=== PATIENT | male | born 1960 | race Caucasian/White ===

== ENCOUNTER → 2017-07-19 08:45 | Outpatient (CLI) | payer OTHER, SELFPAY ==
--- NOTE | 2017-07-19 | CI_ITS ---
Cerebrovascular Exam Indications: 780.4 Dizziness and giddiness. IMPRESSIONS 1. The bilateral vertebral arteries are patent with normal antegrade flow. 2. Study suggests less than 20% stenosis involving the right internal carotid artery and the left internal carotid artery. No change from the study of 26-Aug-2014. History: Syncope. Risk factors: Hyperlipidemia. Carotid duplex study. Complete study and Doppler flow study including spectral analysis, color and whittaker scale imaging. Height: Height: 177.8cm. Height: 70in. Weight: Weight: 104.3kg. Weight: 229.5lb. Body mass index: BMI: 33kg/m^2. Body surface area: BSA: 2.3m^2. Location: Vascular laboratory. Patient status: Outpatient. Tables: Arterial flow: + +--------+--------+ Location V sys V ed + +--------+--------+ Right CCA - proximal 127cm/s 28.3cm/s + +--------+--------+ Right CCA - distal 101cm/s 33cm/s + +--------+--------+ Right ECA 128cm/s -------- + +--------+--------+ Right ICA - proximal 95.1cm/s 33.8cm/s + +--------+--------+ Right ICA - mid 80.1cm/s 31.4cm/s + +--------+--------+ Right ICA - distal 99cm/s 40.1cm/s + +--------+--------+ Right vertebral 53.4cm/s -------- + +--------+--------+ Left CCA - proximal 105cm/s 29.1cm/s + +--------+--------+ Left CCA - distal 105cm/s 31.4cm/s + +--------+--------+ Left ECA 115cm/s -------- + +--------+--------+ Left ICA - proximal 84.9cm/s 35.4cm/s + +--------+--------+ Left ICA - mid 87.2cm/s 40.9cm/s + +--------+--------+ Left ICA - distal 106cm/s 47.9cm/s + +--------+--------+ Left vertebral 43.2cm/s -------- + +--------+--------+ Velocity ratios: + + + + + + Right, V sys Right, V ed Left, V sys Left, V ed + + + + + + Max ICA/dist CCA 0.98 1.22 1.01 1.53 + + + + + + (Report amended ) Electronically signed by: Robbin Martin [id number]
== END ==
PROVIDERS: Family Provider Family Medicine; PCP Nurse Practitioner; Visit Provider Family Medicine
DX: R55 Syncope and collapse (principal)
CPT/HCPCS: 93880

== ENCOUNTER 2017-08-20 23:12 | Observation (INO) ==
[2017-08-20 23:48] LABS: Basophils # 0.1 K/mm3 (0-0.2); Basophils % 0.9 % (0.1-2.0); Eosinophils # 0.2 K/mm3 (0.0-0.4); Eosinophils % 2.9 % (0.1-12.0); Lymphocytes # 2.2 K/mm3 (0.7-4.5); Lymphocytes % 37.7 K/mm3 (10-50); Mean Corpuscular HGB Conc 29.7 g/dL (31.8-35.4); Mean Corpuscular Hemoglobin 27.4 pg (27.0-31.2); Mean Corpuscular Volume 92.3 fl (80-94); Mean Platelet Volume 8.3 fl (7.4-10.4); Monocytes # 0.4 K/mm3 (0.1-1.0); Monocytes % 6.3 % (1.7-9.3); Neutrophils % 52.2 % (37.0-80.0); Platelet Count 319 K/mm3 (142-424); Red Blood Count 4.01 M/mm3 (4.60-6.20); Red Cell Distribution Width 12.7 % (11.5-17.5); White Blood Count 5.8 K/mm3 (4.8-10.8)
[2017-08-20 23:53] LABS: Acetone, Serum (Rapid) None Detected (None Detect)
[2017-08-21 00:03] LABS: Alanine Aminotransferase 18 U/L (12-78); Albumin Level 3.2 gm/dL (3.4-5.0); Alkaline Phosphatase 141 U/L (46-116); Anion Gap 9.3 mEq/L (5-15); Aspartate Amino Transferase 13 U/L (15-37); Bilirubin,Direct 0.1 mg/dL (0.0-0.2); Bilirubin,Indirect 0.2 mg/dL (0.0-0.9); Bilirubin,Total 0.3 mg/dL (0.2-1.0); Blood Urea Nitrogen 20 mg/dL (7-18); Calcium 8.5 mg/dL (8.5-10.1); Carbon Dioxide 28 mmol/L (21.0-32.0); Chloride 105 mmol/L (98-107); Glucose 325 mg/dL (74-106); Potassium 4.3 mmoL/L (3.5-5.1); Sodium 138 mmol/L (136-145); Total Protein,Serum 6.6 gm/dL (6.4-8.2)
[2017-08-21 00:05] LABS: Amylase 40 U/L (25-125); Lipase 52 u/L (73-393)
[2017-08-21 00:06] LABS: Ethyl Alcohol 0 mg/dL (0-99)
[2017-08-21 00:16] LABS: Microscopic, Urine URINE MICROSCOPIC (MICROSCOPIC)
[2017-08-21 00:24] LABS: Amphetamine/Metha Screen,Urine Positive ng/mL (<1000); Barbiturates Screen,Urine Negative ng/mL (<200); Benzodiazepines Screen,Urine Negative ng/mL (<200); Cannabinoid Screen,Urine Negative ng/mL (<50); Cocaine Screen,Urine Negative ng/mL (<300); Methadone Screen,Urine Negative ng/mL (<300); Opiate Screen,Urine Positive ng/mL (<300); Phencyclidine Screen,Urine Negative ng/mL (<25)
[2017-08-21 00:55] LABS: Appearance,Urine CLEAR (Clear); Bilirubin,Urine Negative (Negative); Blood, Urine TRACE-I (Negative); Color,Urine YELLOW (Yellow); Glucose,Urine (UA) 3+ (Negative); Ketones,Urine Negative (Negative); Leukocyte Esterase,Urine Negative (Negative); PH,Urine 5.5 (5.0-8.5); Protein,Urine Negative (Negative); Urobilinogen,Urine 0.2 EU/dl (0.2)
[2017-08-21 00:59] LABS: WBC,Urine Occasional #/hpf (0-3)
--- NOTE | 2017-08-21 02:32 | Emergency Department Note ---
ED Disposition Clinical Impression: Hyperglycemia Overdose opiate Qualifiers: Encounter type: initial encounter Injury intent: accidental or unintentional Qualified Code(s): T40.601A - Poisoning by unspecified narcotics, accidental ( unintentional), initial encounter Disposition: Admitted As Inpatient Condition on Discharge: Fair Time of Disposition: 01:15 - Critical Care Critical Care Time: Yes Attestation: On 08/20/17, the high probability of a clinically significant, sudden or life threatening deterioration of the following system(s) required my full and direct attention, intervention and personal management. The time I documented below is in addition to time spent performing reported procedures but includes the following listed in this critical care notation. Total Critical Care Time: 90 Vital system(s) involved:: Central Nervous System My critical care processes included: Assessment & monitoring of V/S, Initial and Re-exams, Data Review/Interpretation, Coordinating Care, Medication Orders and management, Documentation Medical Decision Making - Medical Records Medical records reviewed: Yes: I reviewed the patient's medical records. - Juan Inquiry Pt receiving controlled substance: No Vital Signs: 08/20/17 23:13 08/21/17 00:33 08/21/17 00:44 Temperature 97.7 F Temperature Source Oral Pulse Rate Pulse Rate [Right Brachial] Pulse Rate [Right Radial] 90 822 H 81 Respiratory Rate 14 16 16 Blood Pressure Blood Pressure [Right Arm] 176/98 128/75 128/75 Blood Pressure Mean [Right Arm] 124 92 92 Blood Pressure Source Blood Pressure Source [Right Arm] Automatic Cuff Automatic Cuff Blood Pressure Position Blood Pressure Position [Right Arm] Sitting Supine 02 Sat by Pulse Oximetry 92 L 95 97 Oxygen Delivery Method Room Air Room Air 08/21/17 01:30 08/21/17 02:26 Temperature 98.8 F Temperature Source Oral Pulse Rate 75 Pulse Rate [Right Brachial] 107 H Pulse Rate [Right Radial] Respiratory Rate 18 16 Blood Pressure 121/73 Blood Pressure [Right Arm] 159/89 Blood Pressure Mean [Right Arm] 112 Blood Pressure Source Automatic Cuff Blood Pressure Source [Right Arm] Automatic Cuff Blood Pressure Position Sitting Blood Pressure Position [Right Arm] Supine 02 Sat by Pulse Oximetry 98 Oxygen Delivery Method Room Air Room Air - Lab Data Lab results reviewed: Yes: I reviewed the patient's lab results. Lab Results 08/20/17 23:11: POC Glucose 380 H* 08/20/17 23:30: WBC 5.8, RBC 4.01 L, Hgb 11.0 L, Hct 37.0 L, MCV 92.3, MCH 27.4 , MCHC 29.7 L, RDW 12.7, Plt Count 319, MPV 8.3, Neut % (Auto) 52.2, Lymph % ( Auto) 37.7, [place] % (Auto) 6.3, Eos % (Auto) 2.9, Baso % (Auto) 0.9, Neut # (Auto ) 3.0, Lymph # (Auto) 2.2, [place] # (Auto) 0.4, Eos # (Auto) 0.2, Baso # (Auto) 0.1 08/20/17 23:30: Troponin I < 0.02, Amylase 40, Lipase 52 L, Salicylates 2.0 L, Plasma/Serum Alcohol 0 08/20/17 23:30: Sodium 138, Potassium 4.3, Chloride 105, Carbon Dioxide 28, Anion Gap 9.3, BUN 20 H, Creatinine 1.56 H, Estimated Creat Clear 79, Estimated GFR 46 L, Est GFR ( Amer) 56 L, Glucose 325 H, Calcium 8.5, Total Bilirubin 0.3, Direct Bilirubin 0.1, Indirect Bilirubin 0.2, AST 13 L, ALT 18, Alkaline Phosphatase 141 H, Total Protein 6.6, Albumin 3.2 L, Acetone Level None detected 08/21/17 00:10: Urine Color Yellow, Urine Appearance Clear, Urine pH 5.5, Ur Specific [place] 1.020, Urine Protein Negative, Urine Glucose (UA) 3+, Urine Ketones Negative, Urine Blood Trace-i, Urine Nitrate Negative, Urine Bilirubin Negative, Urine Urobilinogen 0.2, Ur Leukocyte Esterase Negative, Urine RBC 3-5 , Urine WBC Occasional 08/21/17 00:10: Urine Opiates Screen Positive H, Urine Methadone Screen Negative , Ur Barbituates Screen Negative, Ur Phencyclidine Scrn Negative, Ur Amphetamines Screen Positive H, U Benzodiazepines Scrn Negative, Urine Cocaine Screen Negative, U Marijuana (THC) Screen Negative 08/21/17 00:44: POC Glucose 186 H Result diagrams: 08/20/17 23:30 08/20/17 23:30 Orders (Tests/Meds): ED MEDICATIONS Discontinued Medications Generic Name Dose Route Start Last Admin Trade Name Freq PRN Reason Stop Dose Admin Atorvastatin Calcium 10 mg 08/21/17 21:00 Lipitor 10mg Tablet PO 09/20/17 20:59 HS LORAINE Sodium Chloride 1,000 mls @ 999 mls/hr 08/20/17 23:30 08/21/17 00:00 Sod Chlor 0.9% 1000ml Bag IV 08/21/17 00:30 999 mls/hr .Q1H1M LORAINE Administration Sodium Chloride 1,000 mls @ 999 mls/hr 08/21/17 00:15 08/20/17 23:15 Sod Chlor 0.9% 1000ml Bag IV 08/21/17 01:15 999 mls/hr .Q1H1M LORAINE Administration Sodium Chloride 1,000 mls @ 75 mls/hr 08/21/17 01:49 08/21/17 03:31 Sod Chlor 0.9% 1000ml Bag IV 09/20/17 01:48 75 mls/hr .[id number] LORAINE Administration Insulin Detemir 15 unit 08/21/17 09:00 Levemir 100units/Ml 3ml Flexpen SQ 09/20/17 08:59 DAILY [facility] Pt's Own Med 1 units 08/21/17 09:00 Insulin Aspart [ SQ 09/20/17 08:59 Novolog] TID [facility] Pt's Own Med 1 cap 08/21/17 01:49 Linaclotide [Linzess PO ] Cap DAILYP PRN motility Ondansetron HCl 4 mg 08/20/17 23:39 08/20/17 23:46 Zofran 4mg/2ml Vial IV 08/20/17 23:40 4 mg ONCE ONE Administration Ondansetron HCl 4 mg 08/21/17 01:49 Zofran 4mg/2ml Vial IV 09/20/17 01:48 Q4H PRN Nausea Promethazine HCl 12.5 mg 08/21/17 01:49 Phenergan 25mg/Ml 1ml Vial IV 09/20/17 01:48 Q4H PRN Nausea Sertraline HCl 50 mg 08/21/17 09:00 Zoloft 50mg Tablet PO 09/20/17 08:59 DAILY LORAINE Sodium Chloride 25 ml 08/21/17 01:49 Sod Chlor 0.9% 25ml Bag IV 08/21/17 01:50 ONCE ONE Sodium Chloride 10 ml 08/21/17 08:20 Saline Flush 10ml Syringe IV 09/20/17 08:19 NEEDED PRN Maintain IV Site ORDERS Category Date Time Status XR chest portable Stat Exams 08/20/17 23:26 Ordered - Radiology Data #1 Image(s): Chest Image Reviewed: Yes I reviewed the patient's radiology results Preliminary Findings: Normal/NAD - ECG Data Tracing #1 I reviewed this ECG and interpreted as documented below: No acute ischemic changes, heart rate 88, no ectopies ECG normal with no acute: arrhythmias, ischemia, conduction abnormalities, chamber hypertrophy Normal Sinus Rhythm: Yes - Physician Consults Physician Consulted: Dr Blum covering for Dr Song Time: 01:10 Reason -: Admission, Pt condition Comment/Response: Advise of patient's findings and presentation, agreeable with admission to observation. - Reevaluation(s) Time: 01:10 Reevaluation #1: Patient remorseful, advising that taking the narcotic was a mistake, not interested in experiment with illicit drugs any further. Neuro HPI - General Chief Complaint: Altered Mental Status Stated Complaint: diabetes, AMS Time Seen by Provider: 08/20/17 23:30 Mode of Arrival: EMS Source of Information: Patient Limitations: No Limitations Description of Symptoms (Recalled from ER Triage Doc. by RN): high blood sugar, unresponsive, awoke with narcan - History of Present Illness HPI Narrative: This is a 56-year-old male patient presenting to the emergency room after having an episode of unresponsiveness, at home, just prior to arrival. His found him diaphoretic, poorly responsive, and thought he had a "diabetic emergency", so she called the ambulance immediately. On route to the hospital the patient received an IV dose of Narcan, which has restored his level of consciousness immediately. In the emergency room the patient had multiple episodes of nausea and vomiting, and finally admitted of "taking a Percocet at home", out of frustration over his chronic low back pain, pending referral to a local pain clinic. Onset (ago): minute(s) (30) Timing confirmed by: spouse Location: altered History of same: No Quality: weak (generally ) Relieving factors: medication (IV narcane) Exacerbating factors: none Context: sudden onset On Anticoagulants: No Associated symptoms: confusion, diaphoresis, malaise, nausea/vomiting Treatments Prior to Arrival: other medication (iv narcane given in the ambulance ) - Related Data Home Medications: Home Medications Medication Instructions Recorded Confirmed Aspirin [Aspir-Low] 81 mg PO QPMWM 08/21/17 08/21/17 Atorvastatin Calcium [Atorvastatin 10 mg PO HS 08/21/17 08/21/17 10mg Tab] Insulin Aspart [Novolog] 1 units SQ BID PRN 08/21/17 08/21/17 Insulin Detemir [Levemir 30 units PO DAILY 08/21/17 08/21/17 100units/mL 3mL flexpen] Linaclotide [Linzess] 1 cap PO DAILYP PRN 08/21/17 08/21/17 Sertraline HCl [Zoloft 50mg tablet] 50 mg PO HS 08/21/17 08/21/17 Allergies/Adverse Reactions: Allergies Allergy/AdvReac Type Severity Reaction Status Date / Time sulfamethoxazole Allergy Mild Unverified 02/07/17 14:03 [From BACTRIM] trimethoprim [From BACTRIM] Allergy Mild Unverified 02/07/17 14:03 Stroke Alert/NIH Score - LOC Stroke Alert: No H History I have reviewed the patient's past medical history: Yes Medical History: Reports:: Diabetes Mellitus Type 2 Denies:: Cancer, Diabetes Mellitus Type 1, MRSA Amputation: No Fractures: No - Social History Alcohol Intake: current Alcohol Intake Frequency:: holidays/special occasions only - Psychiatric History Expresses thoughts of harming self/others: None Suicide Plan Description: No Plan ROS Obtained: Yes All systems reviewed & no additional complaints, Yes Systems reviewed as appropriate & no additional complaints - Neurologic Neurologic: Reports system reviewed and no additional complaints, except as docu , Reports as per HPI, Reports confusion Physical Exam - General General appearance: alert, in distress (moderate) - Head Head exam: atraumatic, normocephalic, normal inspection - Eye Eye exam: Present: normal appearance, PERRL, EOMI, other (normal fundi) - Neck Neck exam: Present: normal inspection, full ROM, trachea midline. Absent: meningismus, lymphadenopathy - Chest Chest inspection: Present: normal inspection, symmetric chest wall rise. Absent : tenderness - Respiratory Respiratory exam: Present: normal lung sounds bilaterally. Absent: respiratory distress - Cardiovascular Cardiovascular exam: Present: regular rate, normal rhythm. Absent: JVD - Abdominal Exam Abdominal exam: Present: soft, normal bowel sounds. Absent: distention, tenderness, guarding - Extremities Exam Extremities exam: Present: normal inspection, full ROM, normal capillary refill. Absent: calf tenderness - Back Exam Back exam: Present: normal inspection. Absent: tenderness - Neurological Exam Neurological exam: Present: alert, oriented X3 - Psychiatric Psychiatric exam: Present: normal affect, normal mood - Skin Skin exam: Present: warm, dry, intact, normal color
--- NOTE | 2017-08-21 07:11 | H&P/Discharge Summary ---
General - General Admission date:: 08/21/17 Discharge date: 08/21/17 *Admission Date: 08/21/17 *Chief complaint: Altered mental status *History of present illness: 56-year-old male with history of chronic low back pain presented to the emergency department with altered mental status after taking a single Percocet 30 mg after having an alcoholic beverage. In the emergency department patient was given Narcan which briefly woke him. He was admitted for further observation. Patient is adamant he only took a single Percocet 30 mg. He did this out of frustration over his back pain. His back pain is long-standing and while he is waiting for notification from the pain management office he became impatient. He states this was all a mistake and that he has no plans of taking any more pain medicine ever. [facility] History I have reviewed the patient's past medical history: Yes Medical History: Reports:: Diabetes Mellitus Type 2 Denies:: Cancer, Diabetes Mellitus Type 1, MRSA Other Medical History: Reports: Arthritis (BACK) Other Surgeries: Yes: Cholecystectomy Amputation: No Fractures: No - *Social History Educational Level: Completed High School Alcohol Intake: current Alcohol Intake Frequency:: holidays/special occasions only Substance Use Type: opiates Last Used Substance: hours (ago) Occupational Status: disabled Housing: house Household Members: spouse - Psychiatric History Expresses thoughts of harming self/others: None Suicide Plan Description: No Plan *Family Hx:: Cancer, Coronary Artery Disease Review of Systems - Review of Systems Review of systems:: pertinent systems reviewed and negative unless documented below Exam Vital signs and Labs for Last 24 Hours: Temp Pulse Resp BP Pulse Ox 98.5 F 81 16 143/82 95 08/21/17 04:00 08/21/17 04:00 08/21/17 04:00 08/21/17 04:00 08/21/17 04:00 Laboratory Results - last 24 hr 08/20/17 23:30: WBC 5.8, RBC 4.01 L, Hgb 11.0 L, Hct 37.0 L, MCV 92.3, MCH 27.4 , MCHC 29.7 L, RDW 12.7, Plt Count 319, MPV 8.3, Neut % (Auto) 52.2, Lymph % ( Auto) 37.7, [place] % (Auto) 6.3, Eos % (Auto) 2.9, Baso % (Auto) 0.9, Neut # (Auto ) 3.0, Lymph # (Auto) 2.2, [place] # (Auto) 0.4, Eos # (Auto) 0.2, Baso # (Auto) 0.1 08/20/17 23:30: Troponin I < 0.02, Amylase 40, Lipase 52 L, Salicylates 2.0 L, Plasma/Serum Alcohol 0 08/20/17 23:30: Sodium 138, Potassium 4.3, Chloride 105, Carbon Dioxide 28, Anion Gap 9.3, BUN 20 H, Creatinine 1.56 H, Estimated Creat Clear 79, Estimated GFR 46 L, Est GFR ( Amer) 56 L, Glucose 325 H, Calcium 8.5, Total Bilirubin 0.3, Direct Bilirubin 0.1, Indirect Bilirubin 0.2, AST 13 L, ALT 18, Alkaline Phosphatase 141 H, Total Protein 6.6, Albumin 3.2 L, Acetone Level None detected 08/21/17 00:10: Urine Color Yellow, Urine Appearance Clear, Urine pH 5.5, Ur Specific [place] 1.020, Urine Protein Negative, Urine Glucose (UA) 3+, Urine Ketones Negative, Urine Blood Trace-i, Urine Nitrate Negative, Urine Bilirubin Negative, Urine Urobilinogen 0.2, Ur Leukocyte Esterase Negative, Urine RBC 3-5 , Urine WBC Occasional 08/21/17 00:10: Urine Opiates Screen Positive H, Urine Methadone Screen Negative , Ur Barbituates Screen Negative, Ur Phencyclidine Scrn Negative, Ur Amphetamines Screen Positive H, U Benzodiazepines Scrn Negative, Urine Cocaine Screen Negative, U Marijuana (THC) Screen Negative 08/21/17 00:44: POC Glucose 186 H I & O for Last 24 hours: Intake & Output 08/18/17 08/19/17 08/20/17 08/21/17 11:59 11:59 11:59 11:59 Weight 224 lb 8 oz Narrative: He is in no distress this morning. He is oriented. Speech is fluent and clear. Lungs are clear to auscultation. Heart has a regular rate and rhythm. Abdomen is soft. Neurologic exam is grossly normal except for diabetic neuropathy which is long-standing. Hospital Course Hospital Course: Patient was admitted for observation. By 7 AM the morning of August 21 patient was lucid and had no neurologic deficits. He was discharged home. Results Labs on day of discharge: Labs from last 24 hours 08/21/17 08/21/17 08/21/17 00:44 00:10 00:10 WBC RBC Hgb Hct MCV MCH MCHC RDW Plt Count MPV Neut % (Auto) Lymph % (Auto) [place] % (Auto) Eos % (Auto) Baso % (Auto) Neut # (Auto) Lymph # (Auto) [place] # (Auto) Eos # (Auto) Baso # (Auto) Sodium Potassium Chloride Carbon Dioxide Anion Gap BUN Creatinine Estimated Creat Clear Estimated GFR Est GFR ( Amer) Glucose POC Glucose 186 H Calcium Total Bilirubin Direct Bilirubin Indirect Bilirubin AST ALT Alkaline Phosphatase Troponin I Total Protein Albumin Amylase Lipase Urine Color Yellow Urine Appearance Clear Urine pH 5.5 Ur Specific [place] 1.020 Urine Protein Negative Urine Glucose (UA) 3+ Urine Ketones Negative Urine Blood Trace-i Urine Nitrate Negative Urine Bilirubin Negative Urine Urobilinogen 0.2 Ur Leukocyte Esterase Negative Urine RBC 3-5 Urine WBC Occasional Salicylates Urine Opiates Screen Positive H Urine Methadone Screen Negative Ur Barbituates Screen Negative Ur Phencyclidine Scrn Negative Ur Amphetamines Screen Positive H U Benzodiazepines Scrn Negative Urine Cocaine Screen Negative U Marijuana (THC) Screen Negative Plasma/Serum Alcohol Acetone Level 08/20/17 08/20/17 08/20/17 23:30 23:30 23:30 WBC 5.8 RBC 4.01 L Hgb 11.0 L Hct 37.0 L MCV 92.3 MCH 27.4 MCHC 29.7 L RDW 12.7 Plt Count 319 MPV 8.3 Neut % (Auto) 52.2 Lymph % (Auto) 37.7 [place] % (Auto) 6.3 Eos % (Auto) 2.9 Baso % (Auto) 0.9 Neut # (Auto) 3.0 Lymph # (Auto) 2.2 [place] # (Auto) 0.4 Eos # (Auto) 0.2 Baso # (Auto) 0.1 Sodium 138 Potassium 4.3 Chloride 105 Carbon Dioxide 28 Anion Gap 9.3 BUN 20 H Creatinine 1.56 H Estimated Creat Clear 79 Estimated GFR 46 L Est GFR ( Amer) 56 L Glucose 325 H POC Glucose Calcium 8.5 Total Bilirubin 0.3 Direct Bilirubin 0.1 Indirect Bilirubin 0.2 AST 13 L ALT 18 Alkaline Phosphatase 141 H Troponin I < 0.02 Total Protein 6.6 Albumin 3.2 L Amylase 40 Lipase 52 L Urine Color Urine Appearance Urine pH Ur Specific [place] Urine Protein Urine Glucose (UA) Urine Ketones Urine Blood Urine Nitrate Urine Bilirubin Urine Urobilinogen Ur Leukocyte Esterase Urine RBC Urine WBC Salicylates 2.0 L Urine Opiates Screen Urine Methadone Screen Ur Barbituates Screen Ur Phencyclidine Scrn Ur Amphetamines Screen U Benzodiazepines Scrn Urine Cocaine Screen U Marijuana (THC) Screen Plasma/Serum Alcohol 0 Acetone Level None detected DS: Diagnosis - Discharge Diagnosis (1) Overdose opiate Status: Acute Discharge Medications Discharge Medications: Home Medications Medication Instructions Recorded Confirmed Type Aspirin [Aspir-Low] 81 mg PO QPMWM 08/21/17 08/21/17 History Atorvastatin Calcium [Atorvastatin 10 mg PO HS 08/21/17 08/21/17 History 10mg Tab] Insulin Aspart [Novolog] 1 units SQ BID PRN 08/21/17 08/21/17 History Linaclotide [Linzess] 1 cap PO DAILYP PRN 08/21/17 08/21/17 History RX: Insulin Detemir [Levemir 30 units PO DAILY 08/21/17 08/21/17 History 100units/mL 3mL flexpen] RX: Sertraline HCl [Zoloft 50mg 50 mg PO HS 08/21/17 08/21/17 History tablet] Disposition Disposition: Home, Self-Care
== END 2017-08-21 08:25 | disposition home or self-care (01) ==
LOC: 2ND 23:12 → ER 23:12 → 2ND 08-21 02:35
PROVIDERS: ADMIT Emergency Medicine; ATTEND Family Medicine

== ENCOUNTER → 2018-06-05 15:57 | Outpatient (CLI) | payer OTHER, SELFPAY ==
[2018-06-05 17:59] LABS: Alanine Aminotransferase 22 U/L (12-78); Albumin Level 3.6 gm/dL (3.4-5.0); Alkaline Phosphatase 195 U/L (46-116); Aspartate Amino Transferase 11 U/L (15-37); Bilirubin,Direct 0.1 mg/dL (0.0-0.2); Bilirubin,Indirect 0.2 mg/dL (0.0-0.9); Bilirubin,Total 0.3 mg/dL (0.2-1.0); Blood Urea Nitrogen 20 mg/dL (7-18); Calcium 8.8 mg/dL (8.5-10.1); Carbon Dioxide 24 mmol/L (21.0-32.0); Chloride 96 mmol/L (98-107); Creatinine,Serum 1.69 mg/dL (0.70-1.30); Estimated Glomerular Filt Rate 42 ml/min (>60); GFR (African American) 51 ML/MIN (>60); Sodium 131 mmol/L (136-145); Total Protein,Serum 7.1 gm/dL (6.4-8.2)
[2018-06-05 18:54] LABS: Glucose 606 mg/dL (74-106)
[2018-06-05 19:09] LABS: Basophils % 0.6 % (0.1-2.0); Eosinophils # 0.1 K/mm3 (0.0-0.4); Eosinophils % 1.3 % (0.1-12.0); Hematocrit 37.4 % (42.0-52.0); Hemoglobin 11.6 g/dL (14.1-18.0); Lymphocytes # 1.2 K/mm3 (0.7-4.5); Lymphocytes % 23.5 % (10-50); Mean Corpuscular Hemoglobin 28.6 pg (27.0-31.2); Mean Corpuscular Volume 92.5 fl (80-94); Mean Platelet Volume 8.6 fl (7.4-10.4); Monocytes # 0.2 K/mm3 (0.1-1.0); Monocytes % 3.4 % (1.7-9.3); Neutrophils # 3.7 K/mm3 (1.8-7.8); Neutrophils % 71.2 % (37.0-80.0); Platelet Count 337 K/mm3 (142-424); Red Blood Count 4.04 M/mm3 (4.60-6.20); Red Cell Distribution Width 12.8 % (11.5-17.5); White Blood Count 5.2 K/mm3 (4.8-10.8)
[2018-06-07 08:17] LABS: Hep A Ab, IgM Negative (Negative); Hepatitis B Core Antibody IgM Negative (Negative); Hepatitis B Surface Antigen Negative (Negative)
[2018-06-07 08:18] LABS: HIV Screen 4th Generation wRfx Non Reactive (Non Reactive); Hepatitis C Antibody <0.1 s/co ratio (0.0-0.9)
== END ==
PROVIDERS: Visit Provider Family Medicine Addiction Medicine
DX: F11.20 Opioid dependence, uncomplicated (principal); Z79.899 Other long term (current) drug therapy
CPT/HCPCS: 36415; 80048; 80074; 80076; 85025; 86703; G0432

== ENCOUNTER → 2019-01-03 10:22 | Outpatient (CLI) | payer MEDICARE, SELFPAY | PROVIDERS: Visit Provider Family Medicine | DX: L89.529 Pressure ulcer of left ankle, unspecified stage (principal) | CPT/HCPCS: 87070; 87077; 87186; 87205 ==

== ENCOUNTER → 2019-01-09 08:20 | Outpatient (CLI) | payer MEDICARE, SELFPAY ==
--- NOTE | 2019-01-09 08:30 | MR_ITS ---
PROCEDURE: MR ANKLE LT WO CON CLINICAL INDICATION: CLOSED FX OF LEFT ANKLE, OSTEOMYELITIS LEFT TIBIA AND FIBULA Closed fracture osteomyelitis medial pain and infection staph infection, evaluate for osteomyelitis COMPARISON: LLL LOWER LEG-LT from 08/05/2013 TECHNIQUE: Routine multiplanar multi echo sequences are performed without gadolinium enhancement. FINDINGS: The area of clinical concern is marked with a vitamin-E tablet showing diffuse swelling of the subcutaneous soft tissues with decreased T1 and increased T2 signal. There is a mildly displaced fracture involving the medial malleolus. There is mild diffuse soft tissue swelling of the ankle. The distal fracture fragment is distracted by proximally 1 cm. There does appear to be mild widening of the ankle mortise. A small ankle joint effusion is present. There is only slight increased T2 signal within the distal tibia medially and within the displaced fragment there is a small ankle joint effusion. A mildly displaced longitudinal fracture involves posterior distal tibia. The posterior fracture fragment is displaced dorsally by approximately 3-4 mm. There is a mildly displaced oblique fracture involving the distal fibula. The distal fracture fragment is displaced dorsally by 4 mm. There is cortical regularity with decreased T1 and T2 signal involving the articular surface of the distal tibia laterally consistent with an area of osteochondritis dissecans. This area measures approximately 15 mm. There is a mild degree of motion artifact. It is somewhat difficult to evaluate the ligamentous structures and tendinous structures due to this fact. There does appear to be a tear of the ATFL which could be chronic. The tibiofibular ligaments are not well delineated. Suspect mild tendinopathy/tendinosis of the distal aspect of the Achilles tendon. The tendinous structures appear unremarkable. There is some heterogeneous signal intensity along the posterior aspect of the ankle joint. IMPRESSION: 1. There is a trimalleolar fracture as described above with associated soft tissue swelling. Suggest correlation with plain films for better bony delineation. There is widening of the ankle mortise 2. No definite evidence of osteomyelitis. 3. Suspect tear of the ATFL. Dictated by: Robbin Martin MD 01/10/2019 11:41 Electronically signed by Robbin Martin MD in [place] 01/14/2019 07:38
== END ==
PROVIDERS: PCP Family Medicine; Visit Provider Family Medicine
DX: S82.852G Displaced trimalleolar fracture of left lower leg, subsequent encounter for closed fracture with delayed healing (principal); M86.172 Other acute osteomyelitis, left ankle and foot
CPT/HCPCS: 73721

== ENCOUNTER 2019-03-18 16:30 | Outpatient (RCR) | payer MEDICARE, SELFPAY | END 2019-03-18 16:35 | disposition home or self-care (01) | LOC: PT 16:30 | DX: S82.892A Other fracture of left lower leg, initial encounter for closed fracture (principal); E11.621 Type 2 diabetes mellitus with foot ulcer; L89.529 Pressure ulcer of left ankle, unspecified stage | CPT/HCPCS: 97162; 97164; 97597 ==

== ENCOUNTER 2019-09-04 13:32 | Emergency (ER) | payer MEDICARE, SELFPAY ==
[2019-09-04] VITALS (8 sets, daily range): BP systolic 97–169; BP diastolic 64–105; PULSE 85–100; RESP 16–18; TEMP 36.9–37; O2SAT 95–100; BMI 34.4
[2019-09-04 14:23] LABS: Alanine Aminotransferase 36 U/L (12-78); Albumin Level 4.8 g/dl (3.5-5.0); Albumin/Globulin Ratio 1.1 (1.1-1.8); Alkaline Phosphatase 257 U/L (38-126); Anion Gap 21.8 mEq/L (5-15); Aspartate Amino Transferase 38 U/L (17-59); Basophils % 0.1 % (0.1-2.0); Bilirubin,Total 0.8 mg/dl (0.2-1.3); Blood Urea Nitrogen 33 mg/dl (9-20); Calcium 10.3 mg/dl (8.4-10.2); Carbon Dioxide 30 mmol/L (22.0-30.0); Chloride 93 mmol/L (98-107); Creatinine Clearance Estimated 63 mL/min (50-200); Eosinophils # 0.1 K/mm3 (0.0-0.4); Eosinophils % 0.8 % (0.1-12.0); Estimated Glomerular Filt Rate 35 ml/min (>60); GFR (African American) 42 ML/MIN (>60); Globulin 4.2 g/dL (1.3-3.2); Hematocrit 42.6 % (42.0-52.0); Hemoglobin 14.1 g/dL (14.1-18.0); Lymphocytes # 1.1 K/mm3 (0.7-4.5); Lymphocytes % 6.1 % (10-50); Mean Corpuscular HGB Conc 33.1 g/dL (31.8-35.4); Mean Corpuscular Hemoglobin 29.1 pg (27.0-31.2); Mean Platelet Volume 7.8 fl (7.4-10.4); Monocytes # 0.7 K/mm3 (0.1-1.0); Neutrophils # 15.6 K/mm3 (1.8-7.8); Neutrophils % 88.9 % (37.0-80.0); Platelet Count 515 K/mm3 (142-424); Potassium 4.8 mmoL/L (3.5-5.1); Red Blood Count 4.84 M/mm3 (4.60-6.20); Red Cell Distribution Width 14.6 % (11.5-17.5); Sodium 140 mmol/L (136-145); White Blood Count 17.6 K/mm3 (4.8-10.8)
[2019-09-04 14:27] LABS: MANUAL DIFFERENTIAL MANUAL DIFFERENTIAL (MANUAL DIFF)
[2019-09-04 14:31] LABS: Glucose 476 mg/dl (74-100)
--- NOTE | 2019-09-04 14:31 | PC.NURSE ---
critical glucose reported to [facility]
[2019-09-04 14:32] LABS: VBG Base Excess 2.2 mmol/L (-2.4-2.3); VBG HCO3 25.9 mmol/L (23-30); VBG Oxygen Saturation 61.2 % (50-70); VBG PCO2 36.1 mmol/L (35-51); VBG PH 7.47 mmol/L (7.31-7.41); VBG PO2 30.2 mmol/L (28-40)
[2019-09-04 14:42] LABS: Acetone, Serum (Rapid) Small (None Detect)
[2019-09-04 14:57] LABS: Lymphocytes % 6 % (10-50); Monocytes % 3 % (2-9); Neutrophils % 90 % (42-76); Total Cells Counted 100
[2019-09-04 14:58] LABS: Platelet Estimate Normal; RBC Morphology Normal
--- NOTE | 2019-09-04 15:16 | CT_ITS ---
PROCEDURE: CT ABDOMEN PELVIS WO CON CLINICAL INDICATION: abdominal pian Vomiting and abdominal pain COMPARISON: ABDPELW/O CT ABD PELVIS W/O CONTRAST from 01/20/2015 TECHNIQUE: Axial images obtained with sagittal and coronal reformats. All CT scans at the facility use one or more dose reduction, viz: automated exposure control, ma/kV adjustment per patient size (including targeted exams where dose is matched to indication, i.e. head), or iterative reconstruction technique. FINDINGS: LOWER THORAX: Coronary artery calcification ABDOMEN & PELVIS: There is nonspecific thickening of the distal esophagus. Bowel interposition noted on the right. Post cholecystectomy. The liver, spleen, and adrenal glands are unremarkable. There is diffuse fatty infiltration of the pancreas with pancreatic atrophy. A nonobstructing 3 mm calculus is present in the lower pole of the left kidney.. No evidence of appendicitis or diverticulitis. There are few scattered colonic diverticula no pelvic mass or abnormal fluid collection. The prostate is slightly enlarged at 4.7 cm. There are mild osteoarthritic changes of the hips in there is mild degenerative disc disease in the spine at L4-5 and L5-S1. The a IMPRESSION: 1. No acute finding. 2. Nonobstructing left nephrolithiasis Dictated by: Robbin Martin MD 09/04/2019 16:18 Electronically signed by Robbin Martin MD in [place] 09/04/2019 16:18
--- NOTE | 2019-09-04 15:19 | HMH.EDNVD ---
ED Disposition Clinical Impression: Gastroenteritis, Uncontrolled diabetes mellitus, Abdominal pain, SIRS (systemic inflammatory response syndrome) Disposition: Home, Self-Care Condition on Discharge: Good Instructions: DI for Diarrhea and Traveler's Diarrhea -- Adult, DI for Diarrhea and Traveler's Diarrhea -- Child, DI for Nausea -- Adult, DI for Nausea -- Child, Nausea and Vomiting-Adult, Complications of Type 2 Diabetes Prescriptions: Ciprofloxacin HCl [Cipro 500mg Tab] 500 mg PO BID 10 Days #20 tab Transmission Status: Pending to [facility] Ondansetron [Zofran 4mg ODT] 4 mg PO TID PRN 4 Days #15 tab.rapdis PRN Reason: Nausea Transmission Status: Pending to [facility] Referrals: Mal Song MD [Primary Care Provider] - - Critical Care Critical Care Time: No Attestation: On 09/04/19, the high probability of a clinically significant, sudden or life threatening deterioration of the following system(s) required my full and direct attention, intervention and personal management. The time I documented below is in addition to time spent performing reported procedures but includes the following listed in this critical care notation. Medical Decision Making - Medical Records Medical records reviewed: Yes: I reviewed the patient's medical records. - Juan Inquiry Pt receiving controlled substance: No Vital Signs: 09/04/19 14:01 09/04/19 14:12 09/04/19 14:37 Temperature 98.6 F Temperature Source Oral Pulse Rate [Radial] 100 H 99 H 95 H Respiratory Rate 18 Blood Pressure [Right Arm] 161/105 H 152/81 H 166/84 H Blood Pressure Mean [Right Arm] 123 104 111 Blood Pressure Source [Right Arm] Automatic Cuff Automatic Cuff Automatic Cuff Blood Pressure Position [Right Arm] Sitting Sitting Sitting 02 Sat by Pulse Oximetry 95 100 100 Oxygen Delivery Method Room Air Room Air Room Air 09/04/19 15:14 09/04/19 15:57 09/04/19 17:31 Temperature Temperature Source Pulse Rate [Radial] 94 H 99 H 91 H Respiratory Rate Blood Pressure [Right Arm] 169/85 H 129/75 97/64 L Blood Pressure Mean [Right Arm] 113 93 75 Blood Pressure Source [Right Arm] Automatic Cuff Automatic Cuff Automatic Cuff Blood Pressure Position [Right Arm] Sitting Sitting Sitting 02 Sat by Pulse Oximetry 99 100 96 Oxygen Delivery Method Room Air Room Air Room Air - Lab Data Lab results reviewed: Yes: I reviewed the patient's lab results. Lab Results 09/04/19 14:07: VBG pH 7.47 H, VBG pCO2 36.1, VBG pO2 30.2, VBG HCO3 25.9, VBG Total CO2 27.0, VBG O2 Saturation 61.2, VBG Base Excess 2.2 09/04/19 14:07: WBC 17.6 H, RBC 4.84, Hgb 14.1, Hct 42.6, MCV 88.0, MCH 29.1, MCHC 33.1, RDW 14.6, Plt Count 515 H, MPV 7.8, Neut % (Auto) 88.9 H, Lymph % (Auto) 6.1 L, [place] % (Auto) 4.0, Eos % (Auto) 0.8, Baso % (Auto) 0.1, Neut # (Auto) 15.6 H, Lymph # (Auto) 1.1, [place] # (Auto) 0.7, Eos # (Auto) 0.1, Baso # (Auto) 0.0, Total Counted 100, Neutrophils % (Manual) 90 H, Band Neutrophils % 1.0, Lymphocytes % (Manual) 6 L, Monocytes % (Manual) 3, Platelet Estimate Normal, RBC Morphology Normal 09/04/19 14:07: Sodium 140, Potassium 4.8, Chloride 93 L, Carbon Dioxide 30, Anion Gap 21.8 H, BUN 33 H, Creatinine 2.00 H, Estimated Creat Clear 63, Estimated GFR 35 L, Est GFR ( Amer) 42 L, Glucose 476 H*, Calcium 10.3 H, Total Bilirubin 0.8, AST 38, ALT 36, Alkaline Phosphatase 257 H, Total Protein 9.0 H, Albumin 4.8, Globulin 4.2 H, Albumin/Globulin Ratio 1.1, Acetone Level Small 09/04/19 16:18: Random Glucose 336 H 09/04/19 16:50: Urine Color Yellow, Urine Appearance Clear, Urine pH 5.5, Ur Specific [place] 1.010, Urine Protein 1+, Urine Glucose (UA) 3+, Urine Ketones 1+, Urine Blood 1+, Urine Nitrate Negative, Urine Bilirubin Negative, Urine Urobilinogen 0.2, Ur Leukocyte Esterase Negative, Urine RBC Occasional, Ur Squamous Epith Cells Occasional, Urine Bacteria 2+ A 09/04/19 16:55: Lactate 2.4 H Result diagrams: 09/04/19 14
--- NOTE | 2019-09-04 16:02 | PC.NURSE ---
Random glucose delayed related to patient being in ct scan.
[2019-09-04 16:32] LABS: Glucose,Random 336 mg/dL (74-100)
[2019-09-04 17:04] LABS: Microscopic,Cath URINE MICROSCOPIC (MICROSCOPIC)
[2019-09-04 17:08] LABS: Appearance,Urine/Cath CLEAR (Clear); Bilirubin,Cath Negative (Negative); Blood, Urine/Cath 1+ (Negative); Color,Urine/Cath YELLOW (Yellow); Glucose,Urine/Cath (UA) 3+ (Negative); Ketones,Urine/Cath 1+ (Negative); Leukocyte Esterase,Cath Negative (Negative); Nitrate,Cath Negative (Negative); PH,Urine/Cath 5.5 (5.0-8.5); Protein,Urine/Cath 1+ (Negative); Urobilinogen,Cath 0.2 EU/dl (0.2)
[2019-09-04 17:15] LABS: Lactic Acid 2.4 mmol/L (0.7-2.1)
[2019-09-04 17:19] LABS: Bacteria,Urine/Cath 2+ /lpf; RBC,Urine/Cath Occasional # /hpf (0-3); Squamous Epithelial Ur./Cath Occasional #/hpf (0-5)
[2019-09-05 08:36] LABS: POC Glucose,Bedside > 600 (70-110)
[2019-09-06 14:07] LABS: Covid-19 Nasal PCR Sendout Lex NOT DETECTED
== END 2019-09-04 18:41 | disposition home or self-care (01) ==
PROVIDERS: Emergency Provider Family Medicine; PCP Family Medicine
DX: K52.9 Noninfective gastroenteritis and colitis, unspecified (principal); E11.65 Type 2 diabetes mellitus with hyperglycemia; R65.10 Systemic inflammatory response syndrome (SIRS) of non-infectious origin without acute organ dysfunction; I10 Essential (primary) hypertension; Z88.2 Allergy status to sulfonamides; R82.90 Unspecified abnormal findings in urine
CPT/HCPCS: 74176; 80053; 81001; 82009; 82803; 82947; 82962; 83605; 85007; 85025; 87040; 87086; 87088; 87186; 96365; 96366; 96372; 96375; 99284; J2405; U0004

== ENCOUNTER 2019-09-05 20:19 | Observation (INO) | payer MEDICARE, SELFPAY ==
[2019-09-05] VITALS (7 sets, daily range): BP systolic 121–182; BP diastolic 68–109; PULSE 82–110; RESP 16–17; TEMP 36.7–37.2; O2SAT 98–100; BMI 34.4; BMI 35.2
[2019-09-05 20:46] LABS: Basophils # 0.1 K/mm3 (0-0.2); Basophils % 0.4 % (0.1-2.0); Eosinophils # 0.1 K/mm3 (0.0-0.4); Eosinophils % 0.5 % (0.1-12.0); Hematocrit 41.8 % (42.0-52.0); Hemoglobin 13.7 g/dL (14.1-18.0); Lymphocytes # 1.4 K/mm3 (0.7-4.5); Lymphocytes % 8.2 % (10-50); Mean Corpuscular HGB Conc 32.9 g/dL (31.8-35.4); Mean Corpuscular Hemoglobin 29.4 pg (27.0-31.2); Mean Corpuscular Volume 89.4 fl (80-94); Mean Platelet Volume 8.2 fl (7.4-10.4); Monocytes # 0.8 K/mm3 (0.1-1.0); Monocytes % 4.8 % (1.7-9.3); Platelet Count 473 K/mm3 (142-424); Red Blood Count 4.68 M/mm3 (4.60-6.20); Red Cell Distribution Width 14.7 % (11.5-17.5); White Blood Count 17.4 K/mm3 (4.8-10.8)
[2019-09-05 20:51] LABS: Acetone, Serum (Rapid) None Detected (None Detect); Chloride 94 mmol/L (98-107)
[2019-09-05 20:52] LABS: Potassium 4.4 mmoL/L (3.5-5.1); Sodium 138 mmol/L (136-145)
[2019-09-05 20:53] LABS: VBG Base Excess 3.3 mmol/L (-2.4-2.3); VBG HCO3 26.7 mmol/L (23-30); VBG Oxygen Saturation 69.3 % (50-70); VBG PCO2 35.8 mmol/L (35-51); VBG PH 7.49 mmol/L (7.31-7.41); VBG PO2 31.7 mmol/L (28-40); VBG Total CO2 27.8 mmol/L (23-27)
[2019-09-05 20:54] LABS: Alanine Aminotransferase 22 U/L (12-78); Alkaline Phosphatase 193 U/L (38-126); Amylase 58 U/L (30-110); Aspartate Amino Transferase 39 U/L (17-59); Bilirubin,Total 0.6 mg/dl (0.2-1.3); Blood Urea Nitrogen 28 mg/dl (9-20); Carbon Dioxide 32 mmol/L (22.0-30.0); Creatinine Clearance Estimated 70 mL/min (50-200); Estimated Glomerular Filt Rate 39 ml/min (>60); GFR (African American) 47 ML/MIN (>60); MANUAL DIFFERENTIAL MANUAL DIFFERENTIAL (MANUAL DIFF)
[2019-09-05 20:55] LABS: Albumin Level 4.3 g/dl (3.5-5.0); Albumin/Globulin Ratio 1.2 (1.1-1.8); Calcium 9.4 mg/dl (8.4-10.2); Globulin 3.7 g/dL (1.3-3.2); Glucose 256 mg/dl (74-100); Lipase 12 U/L (23-300)
[2019-09-05 21:00] LABS: Anion Gap 16.4 mEq/L (5-15)
[2019-09-05 21:25] LABS: Lymphocytes % 9 % (10-50); Neutrophils % 90 % (42-76); Platelet Estimate Normal; Stomatocytes 1+; Total Cells Counted 100
--- NOTE | 2019-09-05 22:03 | HMH.EDNVD ---
ED Disposition Clinical Impression: Abdominal pain in male, SIRS (systemic inflammatory response syndrome), Renal insufficiency, Diabetes mellitus, insulin dependent (IDDM), uncontrolled Disposition: Admitted as Observation Condition on Discharge: Good Instructions: DI for Diarrhea and Traveler's Diarrhea -- Adult, DI for Diarrhea and Traveler's Diarrhea -- Child, DI for Nausea -- Adult, DI for Nausea -- Child Referrals: Mal Song MD [Primary Care Provider] - - Critical Care Critical Care Time: No Attestation: On 09/05/19, the high probability of a clinically significant, sudden or life threatening deterioration of the following system(s) required my full and direct attention, intervention and personal management. The time I documented below is in addition to time spent performing reported procedures but includes the following listed in this critical care notation. Medical Decision Making - Medical Records Medical records reviewed: Yes: I reviewed the patient's medical records. - Juan Inquiry Pt receiving controlled substance: No Vital Signs: 09/05/19 20:26 Temperature 98.9 F Temperature Source Temporal Artery Scan Pulse Rate [Right Brachial] 110 H Respiratory Rate 17 Blood Pressure [Right Arm] 182/92 H Blood Pressure Mean [Right Arm] 122 Blood Pressure Source [Right Arm] Automatic Cuff Blood Pressure Position [Right Arm] Supine 02 Sat by Pulse Oximetry 98 Oxygen Delivery Method Room Air - Lab Data Lab results reviewed: Yes: I reviewed the patient's lab results. Lab Results 09/05/19 20:33: WBC 17.4 H, RBC 4.68, Hgb 13.7 L, Hct 41.8 L, MCV 89.4, MCH 29.4, MCHC 32.9, RDW 14.7, Plt Count 473 H, MPV 8.2, Neut % (Auto) 86.0 H, Lymph % (Auto) 8.2 L, [place] % (Auto) 4.8, Eos % (Auto) 0.5, Baso % (Auto) 0.4, Neut # (Auto) 15.0 H, Lymph # (Auto) 1.4, [place] # (Auto) 0.8, Eos # (Auto) 0.1, Baso # (Auto) 0.1, Total Counted 100, Neutrophils % (Manual) 90 H, Lymphocytes % (Manual) 9 L, Basophils % (Manual) 1.0, Platelet Estimate Normal, Stomatocytes 1+ 09/05/19 20:33: Sodium 138, Potassium 4.4, Chloride 94 L, Carbon Dioxide 32 H, Anion Gap 16.4 H, BUN 28 H, Creatinine 1.80 H, Estimated Creat Clear 70, Estimated GFR 39 L, Est GFR ( Amer) 47 L, Glucose 256 H, Calcium 9.4, Total Bilirubin 0.6, AST 39, ALT 22 D, Alkaline Phosphatase 193 H, Total Protein 8.0, Albumin 4.3 D, Globulin 3.7 H, Albumin/Globulin Ratio 1.2, Amylase 58, Lipase 12 L, Acetone Level None detected 09/05/19 20:36: VBG pH 7.49 H, VBG pCO2 35.8, VBG pO2 31.7, VBG HCO3 26.7, VBG Total CO2 27.8 H, VBG O2 Saturation 69.3, VBG Base Excess 3.3 H Result diagrams: 09/05/19 20:33 09/05/19 20:33 Orders (Tests/Meds): ED MEDICATIONS Generic Name Dose Route Start Last Admin Trade Name Freq PRN Reason Stop Dose Admin Sodium Chloride 2,000 mls @ 999 mls/hr 09/05/19 20:45 09/05/19 20:39 Sod Chlor 0.9% 1000ml Bag IV 09/05/19 22:45 999 mls/hr .Q2H1M LORAINE Administration Sodium Chloride 8 ml 09/05/19 22:12 Sodium Chloride 0.9% 10ml Vial IV 10/05/19 22:11 NEEDED PRN dilute pepcid Discontinued Medications Generic Name Dose Route Start Last Admin Trade Name Freq PRN Reason Stop Dose Admin Famotidine 20 mg 09/05/19 22:12 09/05/19 22:13 Pepcid 20mg/2ml Vial IV 09/05/19 22:13 20 mg ONCE ONE Administration Metoclopramide HCl 10 mg 09/05/19 22:12 09/05/19 22:13 Reglan 10mg/2ml Vial IVP 09/05/19 22:13 10 mg ONCE ONE Administration Ondansetron HCl 4 mg 09/05/19 20:37 09/05/19 20:39 Zofran 4mg/2ml Vial IV 09/05/19 20:38 4 mg ONCE ONE Administration ORDERS Category Date Time Status Urinalysis and Microscopic Stat Lab 09/05/19 20:35 Ordered - Physician Consults Physician Consulted: [email or web address] Reason -: Admission Nausea/Vomiting/Diarrhea HPI - General Chief complaint: Nausea/Vomiting/Diarrhea Stated complaint: vomitting Time Seen by Provider: 09/05/19 22:00 Mode of Arrival: Family V
--- NOTE | 2019-09-05 22:09 | PC.NURSE ---
asked patient if he would void for a specimen. pt states if he gets pain meds he will give a urine
--- NOTE | 2019-09-05 22:29 | PC.NURSE ---
paged on-call for dr ramos, dr matamoros
--- NOTE | 2019-09-05 22:30 | PC.NURSE ---
pg'pola velasquez with pharmacy.
[2019-09-05 22:54] LABS: Microscopic, Urine URINE MICROSCOPIC (MICROSCOPIC)
[2019-09-05 22:54] LABS: Adenovirus,PCR Not Detected (NotDetected); Bordetella Pertussis Not Detected (NotDetected); Chlamydophila Pneumoniae, PCR Not Detected (NotDetected); Coronavirus 19, PCR Not Detected (NotDetected); Coronavirus 229E Not Detected (NotDetected); Coronavirus NL63 Not Detected (NotDetected); Coronavirus OC43 Not Detected (NotDetected); Coronovirus HKU1,PCR Not Detected (NotDetected); Human Metapneumovirus Not Detected (NotDetected); Influenza A, PCR Not Detected (NotDetected); Influenza AH1, 2009 Not Detected (NotDetected); Influenza AH1, PCR Not Detected (NotDetected); Influenza AH3,PCR Not Detected (NotDetected); Influenza B, PCR Not Detected (NotDetected); Mycoplasma Pneumoniae, PCR Not Detected (NotDected); Parainfluenza 1, PCR Not Detected (NotDetected); Parainfluenza 2, PCR Not Detected (NotDetected); Parainfluenza 3, PCR Not Detected (NotDetected); Parainfluenza 4, PCR Not Detected (NotDetected); Respiratory Syncytial Virus Not Detected (NotDetected); Rhinovirus/Enterovirus Not Detected (NotDetected)
[2019-09-05 23:01] LABS: Appearance,Urine CLEAR (Clear); Bilirubin,Urine Negative (Negative); Blood, Urine TRACE-I (Negative); Color,Urine YELLOW (Yellow); Glucose,Urine (UA) 3+ (Negative); Ketones,Urine 1+ (Negative); Leukocyte Esterase,Urine Negative (Negative); Nitrate,Urine Negative (Negative); PH,Urine 7.5 (5.0-8.5); Protein,Urine 2+ (Negative); Specific Gravity, Urine 1.015 (1.005-1.030); Urobilinogen,Urine 0.2 EU/dl (0.2)
[2019-09-05 23:18] LABS: Bacteria,Urine 1+ /lpf; Mucus,Urine 1+ /lpf
--- NOTE | 2019-09-05 23:34 | PC.NURSE ---
taken to floor at this time due to census, with approval from house prior to covid test results
--- NOTE | 2019-09-05 23:50 | PC.NURSE ---
pt arrived to floor via wheel chair at 2345.
[2019-09-06 00:26] VITALS: BP 167/95; PULSE 92; RESP 18; TEMP 36.9; O2SAT 99
[2019-09-06 01:29] VITALS: O2SAT 99
[2019-09-06 04:59] VITALS: BMI 35.1
[2019-09-06 05:01] VITALS: BP 139/78; PULSE 79; RESP 16; TEMP 37; O2SAT 97
[2019-09-06 05:55] LABS: POC Glucose,Bedside 292 (70-110)
--- NOTE | 2019-09-06 06:06 | PC.NURSE ---
Pt has rested well t/o this shift. Pt has had one episode of N/V this along with pain this shift, PRN pain med administered per APR. Pt reported effectiveness and has had no other complaints of N/V. Pt educated on NPO status and pt verbalized understanding and the importance of remaining NPO at this time. Call light is within reach. No complaints at this time. Will continue to monitor.
[2019-09-06 06:46] LABS: Basophils # 0.1 K/mm3 (0-0.2); Basophils % 0.5 % (0.1-2.0); Eosinophils % 0.3 % (0.1-12.0); Hematocrit 33.8 % (42.0-52.0); Lymphocytes # 2.7 K/mm3 (0.7-4.5); Lymphocytes % 23.8 % (10-50); Mean Corpuscular HGB Conc 31.6 g/dL (31.8-35.4); Mean Corpuscular Hemoglobin 28.6 pg (27.0-31.2); Mean Corpuscular Volume 90.6 fl (80-94); Mean Platelet Volume 8.4 fl (7.4-10.4); Monocytes # 0.7 K/mm3 (0.1-1.0); Monocytes % 5.8 % (1.7-9.3); Neutrophils # 7.8 K/mm3 (1.8-7.8); Neutrophils % 69.6 % (37.0-80.0); Platelet Count 323 K/mm3 (142-424); Red Blood Count 3.73 M/mm3 (4.60-6.20); Red Cell Distribution Width 14.7 % (11.5-17.5); White Blood Count 11.2 K/mm3 (4.8-10.8)
[2019-09-06 06:49] LABS: Chloride 100 mmol/L (98-107); Sodium 136 mmol/L (136-145)
[2019-09-06 06:50] LABS: Potassium 4.3 mmoL/L (3.5-5.1)
[2019-09-06 06:52] LABS: Anion Gap 10.3 mEq/L (5-15); Blood Urea Nitrogen 21 mg/dl (9-20); Carbon Dioxide 30 mmol/L (22.0-30.0); Cholesterol 200 mg/dl (140-200); Creatinine Clearance Estimated 92 mL/min (50-200); Estimated Glomerular Filt Rate 52 ml/min (>60); GFR (African American) 63 ML/MIN (>60); Triglycerides 140 mg/dl (30-150); VLDL Cholesterol 28 mg/dL (0-40)
[2019-09-06 06:53] LABS: Chol/HDL Ratio 4.7 (1-3.5); Glucose 173 mg/dl (74-100); HDL Cholesterol 43 mg/dl (40-60); Magnesium 2.3 mg/dl (1.6-2.3)
[2019-09-06 07:04] LABS: Direct LDL Cholesterol 130.68 mg/dL (100-129)
[2019-09-06 07:19] LABS: Hemoglobin 10.8 g/dL (14.1-18.0)
--- NOTE | 2019-09-06 07:26 | P.CONPHA_ITS ---
[facility] [place] Pharm[facility] VTE Monitoring - Patient Demographics Admission date: 09/06/19 Report Date: 09/06/19 Time: 07:26 Allergies/Adverse Reactions: Patient Allergies sulfamethoxazole [From BACTRIM] Allergy (Mild, Verified 09/04/19 14:16) trimethoprim [From BACTRIM] Allergy (Mild, Verified 09/04/19 14:16) Height: 1.78 m Weight: 111.357 kg Patient Problems: Current Active Problems SIRS (systemic inflammatory response syndrome) (Acute) Abdominal pain in male (Acute) Renal insufficiency (Acute) Diabetes mellitus, insulin dependent (IDDM), uncontrolled (Acute) - VTE Risk Labs: VTE Related Lab Results Hgb 10.8 g/dL (14.1-18.0) L D 09/06/19 06:17 Hct 33.8 % (42.0-52.0) L 09/06/19 06:17 Plt Count 323 K/mm3 (142-424) D 09/06/19 06:17 BUN 21 mg/dl (9-20) H 09/06/19 06:17 Creatinine 1.40 mg/dl (0.66-1.25) H D 09/06/19 06:17 Estimated Creat Clear 92 mL/min (50-200) 09/06/19 06:17 Clinical Trial Participant: No - Prophylaxis VTE Prophylaxis Ordered?: Yes Types of VTE Prophylaxis: TEDS Knee High
[2019-09-06 08:00] VITALS: BP 146/92; PULSE 75; RESP 16; TEMP 36.9; O2SAT 98
--- NOTE | 2019-09-06 08:36 | HMH.HP ---
*Admission Date: 09/06/19 *Chief complaint: abdominal pain, SIDNEY *History of present illness: Mr. Corea is a 58 yo male with history of chronic low back pain, chronic left ankle pain, history of diabetes and hypertension, history of gastroparesis, who presented to the ER 2 days in a row with significant nausea and vomiting. Patient had no fever, blood in his vomit, blood in his stool. States he was unable to keep anything down including fluids. Declined admission on his first presentation to the ER as he felt better after 2 L fluid resuscitation. Came back in the following day however due to recurrent nausea and vomiting necessitating admission. States his nausea was best treated with Dilaudid. Of note he also takes Suboxone and tramadol at home. Phenergan had mixed benefit at home. He reports with his gastroparesis that he had been on Reglan daily for diabetic gastroparesis approximately year and a half ago but was stopped by GI. Had been doing well until a recent trip to [place]. States his symptoms worsened after going on a boat ride for deep sea fishing. Has occasional dizziness but denies any at this time on interview this morning. Denies chest pain, shortness of breath, cough. Labs on presentation showed acute kidney injury, mild dehydration, and intolerance of p.o. intake. Somewhat improved this morning. Interested in trying a clear diet. [facility] History I have reviewed the patient's past medical history: Yes Medical History: Reports:: Diabetes Mellitus Type 2 Denies:: Cancer, Diabetes Mellitus Type 1, MRSA *Have you ever received a pneumonia vaccine?: Yes *Have you received a flu vaccine this season?: No Other Medical History: Reports: Arthritis (BACK) Other Surgeries: Yes: Cholecystectomy, Colonoscopy Amputation: No Fractures: No - *Social History Last grade of school completed: High school graduate Smoking Status: Never smoker Alcohol Intake: current Alcohol Intake Frequency:: holidays/special occasions only Substance Use Type: opiates *Occupational Status:: disabled Housing: house Household Members: spouse, children *Travel in the last 8 weeks: Inside the [facility] Family Hx:: Cancer, Heart Attack Review of Systems - Review of Systems Review of systems:: pertinent systems reviewed and negative unless documented below (14 point review of systems performed, pertinent positives and negatives as per HPI) - *Neurologic Denies headache(s), Denies seizure-like activity, Denies tingling Meds Home Medications Medication Instructions Recorded Confirmed Type Sertraline HCl [Zoloft 50mg tablet] 50 mg PO HS 08/21/17 09/06/19 History Empagliflozin [Jardiance] 25 mg PO DAILY 09/04/19 09/06/19 History Ondansetron [Zofran 4mg ODT] 4 mg PO TID PRN 4 Days #15 09/04/19 09/06/19 Rx tab.rapdis Promethazine HCl [Phenergan 25mg 25 mg PO Q6H PRN 09/04/19 09/06/19 History tab] Tramadol HCl [Tramadol 50mg 50 mg PO Q6HP PRN 09/04/19 09/06/19 History Tab] lisinopriL [Lisinopril 20mg Tab] 20 mg PO DAILY 09/04/19 09/06/19 History Ciprofloxacin HCl [Cipro 500mg 500 mg PO BID 09/05/19 09/06/19 History Tab] Atorvastatin Calcium [Lipitor 40mg 40 mg PO HS 09/06/19 09/06/19 History Tab] Buprenorphine HCl/Naloxone HCl 1.5 tab SL DAILY 09/06/19 09/06/19 History [Buprenorphin-Naloxon 8-2 mg Sl] Allergies Allergy/AdvReac Type Severity Reaction Status Date / Time sulfamethoxazole Allergy Mild Verified 09/04/19 14:16 [From BACTRIM] trimethoprim [From BACTRIM] Allergy Mild Verified 09/04/19 14:16 Exam Vital signs and Labs for Last 24 Hours: Temp Pulse Resp BP Pulse Ox 98.4 F 75 16 146/92 H 98 09/06/19 08:00 09/06/19 08:00 09/06/19 08:00 09/06/19 08:00 09/06/19 08:00 Laboratory Results - last 24 hr 09/05/19 20:33: WBC 17.4 H, RBC 4.68, Hgb 13.7 L, Hct 41.8 L, MCV 89.4, MCH 29.4, MCHC 32.9, RDW 14.7, Plt Count 473 H, MPV 8.2, Neut % (Auto) 86.0 H, Lymph % (Auto)
[2019-09-06 11:18] LABS: POC Glucose,Bedside 168 (70-110)
[2019-09-06 14:16] VITALS: BMI 35.0
[2019-09-06 16:15] LABS: POC Glucose,Bedside 237 (70-110)
[2019-09-06 16:48] VITALS: BP 136/80; PULSE 81; RESP 16; TEMP 36.9; O2SAT 93
--- NOTE | 2019-09-06 17:02 | PC.NURSE ---
PATIENT A&O X4, LUNGS CLEAR, PULSES EQUAL. PATIENT STAYED IN BED FOR MOST OF SHIFT. PATIENT AMBULATED TO RESTROOM ONLY. PATIENT STATED HE DOES NOT FEEL WELL ENOUGH. NO COMPLAINTS OF DIZZINESS. COMPLAINED OF PAIN WHILE SWALLOWING AND PAIN TRAVELS TO STOMACH. THIS RN NOTIFIED DR. SUN, NEW ORDERS WERE CARAFATE 1GM ACHS, PROTONIX 40MG IV Q 12HRS AND TUMS Q 2-4HRS PRN.
--- NOTE | 2019-09-06 19:05 | PC.NURSE ---
PATIENT AMBULATED IN COVARRUBIAS WITHOUT ASSISTANCE. STEADY GAIT WITH A LIMP. MD ORDERED FOR PATIENT TO BE ADVANCED FROM CLEAR LIQUID TO FULL LIQUID. NO OTHER NEEDS AT THIS TIME.
--- NOTE | 2019-09-06 19:13 | PC.NURSE ---
report given to david
[2019-09-06 19:55] VITALS: BP 147/86; PULSE 70; RESP 14; TEMP 36.8; O2SAT 95
[2019-09-06 21:06] LABS: POC Glucose,Bedside 217 (70-110)
[2019-09-07 03:55] VITALS: BP 125/42; PULSE 74; RESP 16; TEMP 36.9; O2SAT 96
[2019-09-07 06:15] LABS: POC Glucose,Bedside 168 (70-110)
[2019-09-07 06:18] VITALS: BMI 35.6
--- NOTE | 2019-09-07 07:39 | HMH.DCSUM ---
General - General Admission date:: 09/05/19 Discharge date: 09/07/19 HPI HPI: Mr. Corea is a 58 yo male with history of chronic low back pain, chronic left ankle pain, history of diabetes and hypertension, history of gastroparesis, who presented to the ER 2 days in a row with significant nausea and vomiting. Patient had no fever, blood in his vomit, blood in his stool. States he was unable to keep anything down including fluids. Declined admission on his first presentation to the ER as he felt better after 2 L fluid resuscitation. Came back in the following day however due to recurrent nausea and vomiting necessitating admission. States his nausea was best treated with Dilaudid. Of note he also takes Suboxone and tramadol at home. Phenergan had mixed benefit at home. He reports with his gastroparesis that he had been on Reglan daily for diabetic gastroparesis approximately year and a half ago but was stopped by GI. Had been doing well until a recent trip to [place]. States his symptoms worsened after going on a boat ride for deep sea fishing. Has occasional dizziness but denies any at this time on interview this morning. Denies chest pain, shortness of breath, cough. Labs on presentation showed acute kidney injury, mild dehydration, and intolerance of p.o. intake. Somewhat improved this morning. Interested in trying a clear diet. Hospital Course Hospital Course: Patient was admitted, rehydrated with IV fluids and started on clear liquid diet and did well. Because of his heartburn type GERD symptoms he was started on proton pump inhibitor and this also did well. Dilaudid was discontinued because of his ongoing Suboxone use and minimal pain symptoms. Nausea improved with the above-noted methods. Reglan was started because of his history of gastroparesis and his report that is done well in the past. Overnight he did well, kidney injury has resolved. Labs are noted this morning. Exam is also improved. Plan will be to discharge patient with proton pump inhibitor, Reglan, and follow-up with Dr. Song for referral back to GI for his ongoing issues with gastroparesis. Objective Vital signs: Temp Pulse Resp BP Pulse Ox 98.5 F 74 16 125/42 L 96 09/07/19 03:55 09/07/19 03:55 09/07/19 03:55 09/07/19 03:55 09/07/19 03:55 no acute distress - *Routine HEENT Exam Head: Present: normocephalic Eye: Present: EOMI, PERRL ENT: Present: mucous membranes moist - *Routine Neck Exam Present: supple - *Routine Respiratory Exam Present: CTA bilaterally - *Routine Cardiovascular Exam Present: RRR - *Routine Abdominal Exam Present: soft, normoactive bowel sounds. Absent: tenderness - *Routine Extremities Exam Absent: cyanosis, clubbing, edema - *Routine Skin Exam Present: warm. Absent: rash - Detailed Eye Exam Eyelids: Bilateral normal inspection Results Labs on day of discharge: Labs from last 24 hours 09/07/19 09/06/19 09/06/19 05:42 20:36 15:53 POC Glucose 168 H 217 H 237 H 09/06/19 11:11 POC Glucose 168 H DS: Diagnosis - Discharge Diagnosis (1) Acute kidney injury Status: Resolved (2) Gastroparesis Status: Chronic (3) Chronically on opiate therapy Status: Chronic (4) Abdominal pain in male Status: Resolved (5) Diabetes mellitus, insulin dependent (IDDM), uncontrolled Status: Chronic (6) Metabolic alkalosis Status: Resolved (7) GERD (gastroesophageal reflux disease) Status: Chronic Discharge Plan - Patient Discharge Instructions ACTIVITY: Continue current activity DIET: continue same diet - Follow up Plan Follow up with: Mal Song MD [Primary Care Provider] - 09/12/19 Disposition: Home, Self-Senior Care Medications: Home Medications Medication Instructions Recorded Confirmed Type Sertraline HCl [Zoloft 50mg tablet] 50 mg PO HS 08/21/17 09/06/19 History Empagliflozin [Jardiance] 25 mg PO DAILY
[2019-09-07 08:00] VITALS: BP 158/78; PULSE 95; RESP 20; TEMP 36.7; O2SAT 97
[2019-09-07 08:36] LABS: Basophils # 0.1 K/mm3 (0-0.2); Basophils % 0.8 % (0.1-2.0); Eosinophils # 0.2 K/mm3 (0.0-0.4); Hematocrit 36.8 % (42.0-52.0); Hemoglobin 11.8 g/dL (14.1-18.0); Lymphocytes # 4.1 K/mm3 (0.7-4.5); Lymphocytes % 35.3 % (10-50); Mean Corpuscular HGB Conc 32.1 g/dL (31.8-35.4); Mean Corpuscular Hemoglobin 29.2 pg (27.0-31.2); Mean Platelet Volume 7.8 fl (7.4-10.4); Monocytes # 0.5 K/mm3 (0.1-1.0); Monocytes % 4.6 % (1.7-9.3); Neutrophils # 6.6 K/mm3 (1.8-7.8); Neutrophils % 57.2 % (37.0-80.0); Platelet Count 337 K/mm3 (142-424); Red Blood Count 4.04 M/mm3 (4.60-6.20); Red Cell Distribution Width 14.4 % (11.5-17.5); White Blood Count 11.5 K/mm3 (4.8-10.8)
[2019-09-07 08:43] LABS: Chloride 101 mmol/L (98-107); Potassium 4.1 mmoL/L (3.5-5.1); Sodium 134 mmol/L (136-145)
[2019-09-07 08:45] LABS: Blood Urea Nitrogen 14 mg/dl (9-20); Creatinine Clearance Estimated 108 mL/min (50-200); Estimated Glomerular Filt Rate 62 ml/min (>60); GFR (African American) 76 ML/MIN (>60)
[2019-09-07 08:46] LABS: Alanine Aminotransferase 20 U/L (12-78); Albumin Level 3.2 g/dl (3.5-5.0); Albumin/Globulin Ratio 1.1 (1.1-1.8); Alkaline Phosphatase 133 U/L (38-126); Anion Gap 9.1 mEq/L (5-15); Aspartate Amino Transferase 28 U/L (17-59); Bilirubin,Total 0.7 mg/dl (0.2-1.3); Calcium 8.7 mg/dl (8.4-10.2); Carbon Dioxide 28 mmol/L (22.0-30.0); Glucose 151 mg/dl (74-100); Total Protein,Serum 6.2 g/dl (6.3-8.2)
--- NOTE | 2019-09-07 14:49 | PC.NURSE ---
THIS RN PROVIDED D/C INSTRUCTIONS FOR ABDOMINAL PAIN, THIS RN ENCOURAGED PATIENT TO FOLLOW A FULL LIQUID DIET, TO EAT SMALL MEALS AND REMAIN UPRIGHT FOR AT LEAST 30 MINUTES AFTER EACH MEAL. THIS RN PROVIDED PATIENT WITH A HAND OUT ABOUT DIABETES AND EXPLAINED EACH SECTION, PATIENT VERBALIZED AN UNDERSTANDING. NO OTHER NEEDS AT THIS TIME.
== END 2019-09-07 11:20 | disposition home or self-care (01) ==
LOC: ER 22:42 → 2ND 22:53
PROVIDERS: Internal Medicine Adolescent Medicine; Admitting Provider Family Medicine; Emergency Provider Emergency Medicine; PCP Family Medicine; Visit Provider Family Medicine
DX: E11.65 Type 2 diabetes mellitus with hyperglycemia (principal); E11.43 Type 2 diabetes mellitus with diabetic autonomic (poly)neuropathy; K31.84 Gastroparesis; Z79.84 Long term (current) use of oral hypoglycemic drugs; E86.0 Dehydration; I10 Essential (primary) hypertension; E87.3 Alkalosis; N17.9 Acute kidney failure, unspecified; F14.11 Cocaine abuse, in remission
CPT/HCPCS: 36415; 80048; 80053; 80061; 81001; 82009; 82150; 82803; 82962; 83690; 83735; 85007; 85025; 87581; 87633; 87798; 96365; 96366; 96375; 99284; G0378; J0571; J2405

== ENCOUNTER 2020-02-17 16:00 | Outpatient (RCR) | payer MEDICARE, SELFPAY | END 2020-02-17 16:05 | disposition home or self-care (01) | LOC: PT 16:00 | PROVIDERS: PCP Family Medicine; Visit Provider Orthopaedic Surgery Foot and Ankle Surgery | DX: M25.572 Pain in left ankle and joints of left foot (principal) | CPT/HCPCS: 97110; 97140; 97163 ==

== ENCOUNTER 2022-03-30 14:00 | Outpatient (RCR) | payer MEDICARE, SELFPAY | END 2022-03-30 14:05 | disposition home or self-care (01) | LOC: PT 14:00 | PROVIDERS: Visit Provider Nurse Practitioner Family | DX: E11.621 Type 2 diabetes mellitus with foot ulcer (principal); Z79.4 Long term (current) use of insulin; M79.672 Pain in left foot | CPT/HCPCS: 97162; 97164; 97597 ==

== ENCOUNTER → 2022-06-24 11:24 | Outpatient (CLI) | payer MEDICARE, SELFPAY ==
--- NOTE | 2022-06-24 11:30 | XR_ITS ---
FINAL REPORT CLINICAL HISTORY: foot pain FINDINGS: Right foot Three views were obtained. There is no acute fracture or dislocation. The joint spaces appear normal. No soft tissue abnormality is identified. IMPRESSION: No acute process. Reviewed, Interpreted and Dictated by Jose King MD Transcribed by Tamela Stephenson Authenticated and [facility]
--- NOTE | 2022-06-24 11:30 | XR_ITS ---
FINAL REPORT CLINICAL HISTORY: plantar foot wound. FINDINGS: Left foot Three views were obtained. The talus is not clearly identified. The distal tibia contacts the calcaneus. There are moderate hypertrophic changes. There is a single orthopedic staple at the level of the proximal 1st distal phalanges. 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 Reviewed, Interpreted and Dictated by Jose King MD Transcribed by Tamela Stephenson Authenticated and . [facility]
== END ==
LOC: RAD 11:26
PROVIDERS: PCP Family Medicine; Visit Provider Podiatrist
DX: M79.671 Pain in right foot (principal); M79.672 Pain in left foot
CPT/HCPCS: 73630

== ENCOUNTER 2022-10-25 13:00 | Outpatient (RCR) | payer MEDICARE, SELFPAY ==
--- NOTE | 2022-10-13 14:39 | HMH.PTOPWND ---
Rehab Outpt Wound Evaluation Rehab OP Wound Evaluation Start: 10/13/22 13:45 Freq: Status: Active Protocol: Document 10/13/22 13:45 WALDO (Rec: 10/13/22 13:51 PHOQUENTIN [id number]) E-signed By William Crocker, PT Subjective/History History History This is the initial PT eval for Tera Corea, 61 yowm who presents with c/o L foot wound x ~ 2 mos with insidious onset fo symptoms. 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 He reports , When I get up at night to use the bathroom, I think I drag this foot and it causes these places to open up. He does have a new pair of diabetic shoes that he received ~ 1 mo ago, but he doesn't wear them constantly. Subjective Subjective Currently no c/o pain, no edema noted in the L foot at this time. Wound Eval Wound Left Lower Great Toe Wound Type Diabetic Foot Ulcer Is This a Chronic Wound Yes Wound Length (cm) 1.6 Wound Width (cm) 0.4 Wound Depth (cm) 0.2 Wound Bed Appearance Beefy Red Percentage Granulated (%) 95 Wound Margins Description hyperkeratotic Surrounding Tissue Appearance [place] Drainage Description Serosanguineous Drainage Amount Small Primary Dressing Composite Comment optifoam gentle border lite. Wound Debridement Method Forceps,Gauze Wound Debridement Amount of Tissue Minimal Removed Dressing Change Patient Tolerance Tolerated Well Wound Problems/Impairments Impairments Problems/Impairmments Impaired Endurance,Impaired Gait Pattern,Impaired Walking, Impaired Standing,Impaired Household Care,Impaired Recreational Activities,Wound Care Needs,Impaired Self Care/ Self Management Prognosis Rehab Potential Good Clinical Impression Consistent with Diagnosis Yes Short Term Goals Number of Weeks 4 Decrease Wound Area Yes: by 25% Patient to be Ind w/ Home Wound Care/ Yes Dressing Changes Residential Goals Number of Weeks 6-8 Increase Ability to Walk Yes: with proper gait pattern at all times Improve Ability For Household Care Yes Decrease Wound Area Yes: by 75% Patient to be Ind w/ HEP Yes Outpatient Therapy Plan of Care Treatment Plan May Include Therapeutic Exercise Including Home Yes Exercise Program Manual Therapy Techniques Yes Neuromuscular Re-education Yes Therapeutic Activities to Return to Yes Previous Functional/Work Level Gait Training Yes ADL/Self Care Education Yes Orthotics/Bracing/Splinting Yes Manual Lymphatic Drainage Yes Wound Care Yes Eval/Re-Eval Yes Frequency Times per week 1-2 Duration Number of Weeks 6-8 Addendums This patient is a candidate for social No or vocational rehab? Patient/Guardian verbally acknowledges Yes understanding of treatment program and consents to further treatment? Patient/Guardian verbally acknowledges Yes understanding of diagnosis, prognosis and goals for treatment? G -code Required No Eval Complexity PT Charges 33377 - High Complexity PHYSICIAN CERTIFICATION: I certify the specified therapy services for Tera Corea are required, authorized, and reviewed every 30 days.
== END 2022-10-25 14:00 | disposition home or self-care (01) ==
LOC: PT 13:00
PROVIDERS: PCP Family Medicine; Visit Provider Podiatrist
DX: E11.621 Type 2 diabetes mellitus with foot ulcer (principal); L97.529 Non-pressure chronic ulcer of other part of left foot with unspecified severity; Z79.4 Long term (current) use of insulin
CPT/HCPCS: 97163; 97597

== ENCOUNTER 2023-10-07 10:20 | Emergency (ER) | payer MEDICARE, SELFPAY ==
[2023-10-07] VITALS (12 sets, daily range): BP systolic 135–208; BP diastolic 64–110; PULSE 61–101; RESP 13–19; TEMP 36.7–37; O2SAT 95–100; BMI 37.3
--- NOTE | 2023-10-07 10:23 | ED_ITS ---
Discharge Plan Disposition Patient Disposition: Home, Self-Care Condition: Good Prescriptions Prescriptions: New omeprazole 20 mg capsule,delayed release(DR/EC) 20 mg PO DAILY 28 Days Qty: 28 0RF dicyclomine 20 mg tablet 20 mg PO BID Qty: 14 0RF ondansetron 4 mg tablet,disintegrating 4 mg PO Q8H PRN (Reason: nausea and vomiting) 5 Days Qty: 10 0RF Held metoclopramide HCl [Reglan] 10 mg tablet 10 mg PO QAC Hold Instructions: Resume on 10/14/23. Hold if taking ondansetron Rx Instructions: administer 30 minutes before meals No Action insulin lispro [Humalog KwikPen Insulin] 100 unit/mL insulin pen 100 unit SQ insulin glargine [Lantus Solostar U-100 Insulin] 100 unit/mL (3 mL) insulin pen 100 unit SQ atorvastatin 20 mg tablet 20 mg PO mupirocin 2 % ointment 1 applic topical BID Qty: 30 1RF Rx Instructions: Apply to affected area up to twice daily buprenorphine-naloxone 1 EACH tablet, sublingual 1.5 tab sublingual DAILY Referrals Follow up/Referrals: Mal Song MD [Primary Care Provider] - See instructions Activity Restrictions/Add. Instructions Additional Instructions/Restrictions: As we discussed, your CT scan did not show any evidence of a surgical issue, you do have ongoing stomach thickening that is likely associated with your gastroparesis. Your blood sugar is elevated in the emergency department, however your kidney function is similar to prior labs that you have had drawn, looking back to 2020, and given that you are feeling better, your nausea is better controlled, and you do not have any significant electrolyte abnormalities, you are able to be discharged from the emergency department at this time. I have prescribed medications to help with your abdominal pain, as well as your nausea. Please make sure you are drinking plenty of liquids and continue to use your normal insulin as directed by your primary care doctor. Please continue to monitor your blood sugar closely. Please return with any new or worsening symptoms. Clinical Impressions Clinical Impression: Hyperglycemia Abdominal pain Qualifiers: Abdominal location: epigastric Qualified Code(s): R10.13 - Epigastric pain Instructions Patient Instructions: DI for Hyperglycemia -- Adult, Nausea and Vomiting-Adult Print Language Print Language: Sinhala Discharge ED Provider: Jeane,Enoch General Adult HPI General Chief complaint: Nausea/Vomiting/Diarrhea Stated complaint: vomiting, gastroperisis, poss dehydration Time Seen by Provider: 10/07/23 10:23 History of Present Illness HPI narrative: The patient presents with a chief complaint of vomiting and elevated blood sugar levels since . He reports not having eaten since Monday night. The patient has a history of gastroparesis and has experienced similar symptoms in the past, including significant weight loss several years ago. The last severe episode occurred a year ago, resulting in a hospital stay of four to five days due to kidney injury. The patient denies any recent fever but reports abdominal pain in the middle of the belly, which does not spread to other areas. He has not had any bowel movements since before the onset of his current symptoms. There is a history of gallbladder removal surgery, and the patient is currently on Reglan for gastroparesis management. No recent medication changes or exposure to sick individuals have been reported. The patient's states that these episodes occur periodically, with some instances resolving on their own after vomiting in the morning. However, this time, the patient has not shown signs of recovery. Please note that above description of symptoms, in this electronic medical record under categorization of recalled from ER triage doctor by RN are reflective of an initial nursing assessment, however, is not reflective of my full history and physical exam that was personally taken and clarified. Consequentially, this preceding description of symptoms, which may include the patient's categorized chief complaint in the EMR, do not reflect my personal clinical impression, and the ultimate description of history of present illness and patient stated complaints should be deferred to this section of the note. Unless stated otherwise or congruent with this section of the note, additional signs, symptoms, or incongruence should be interpreted as inaccurate with my clinical impression. Related Data Home Medications ?Medication ?Instructions ?Recorded ?Confirmed buprenorphine 8 mg-naloxone 2 mg 1.5 tab sublingual DAILY ADDICTION 09/06/19 10/19/22 sublingual tablet atorvastatin 20 mg tablet 20 mg PO 06/15/22 10/19/22 insulin glargine 100 unit/mL (3 100 unit SQ 06/15/22 10/19/22 mL) subcutaneous pen (Lantus Solostar U-100 Insulin) insulin lispro 100 unit/mL 100 unit SQ 06/15/22 10/19/22 subcutaneous pen (Humalog KwikPen (U-100) Insulin) metoclopramide HCl 10 mg tablet 10 mg PO QAC 10/05/22 10/19/22 (Reglan) Previous Rx's ?Medication ?Instructions ?Recorded mupirocin 2 % topical ointment 1 applic topical BID cellulitis 10/05/22 #30 grams dicyclomine 20 mg tablet 20 mg PO BID #14 tabs 10/07/23 omeprazole 20 mg capsule,delayed 20 mg PO DAILY 28 days #28 caps 10/07/23 release ondansetron 4 mg disintegrating 4 mg PO Q8H PRN nausea and 10/07/23 tablet vomiting 5 days #10 tabs Allergies Allergy/AdvReac Type Severity Reaction Status Date / Time sulfamethoxazole Allergy Mild Verified 10/19/22 14:06 [From BACTRIM] trimethoprim [From BACTRIM] Allergy Mild Verified 10/19/22 14:06 PFS PFS Disclaimer: The information contained in this section may have been updated after the patient was seen, as this information can be updated by other users. Social History Smoking Status: Never smoker alcohol intake: current alcohol intake frequency: holidays/special occasions only substance use type: opiates current occupational status: disabled Travel in the last 8 weeks: Inside the [place] household members: spouse and children housing: house current occupational exposures/hazards: No ROS Obtained: Yes other As per HPI Physical Exam General General appearance: alert and in no apparent distress Head Head exam: atraumatic and normocephalic Eye Eye exam: Present normal appearance Neck Neck exam: Present normal inspection Chest Chest inspection: Present normal inspection and symmetric chest wall rise Respiratory Respiratory exam: Present normal lung sounds bilaterally; Absent respiratory distress Cardiovascular Cardiovascular exam: Present regular rate and normal rhythm Abdominal Exam Abdominal exam: Present soft; Absent guarding or rebound Abdominal tenderness: Present epigastrium Neurological Exam Neurological exam: Present alert and oriented X3 Psychiatric Psychiatric exam: Present normal affect and normal mood Skin Skin exam: Present warm and dry Medical Decision Making Medical Records Medical records reviewed: Yes I reviewed the patient's medical records. Juan Inquiry Pt receiving controlled substance: No Vital Signs: 10/07/23 10:32 10/07/23 11:30 10/07/23 11:46 Temperature 98.6 F Temperature Source Oral Pulse Rate 93 H 61 Pulse Rate [Left Radial] 94 H Respiratory Rate 19 Blood Pressure 165/73 H 135/64 Blood Pressure [Right Arm] 208/110 H Blood Pressure Mean [Right Arm] 142 02 Sat by Pulse Oximetry 100 95 96 Oxygen Delivery Method Room Air 10/07/23 12:00 10/07/23 12:14 10/07/23 12:30 Temperature Temperature Source Pulse Rate 93 H 94 H 93 H Pulse Rate [Left Radial] Respiratory Rate Blood Pressure 144/81 H 137/76 144/78 H Blood Pressure [Right Arm] Blood Pressure Mean [Right Arm] 02 Sat by Pulse Oximetry 96 96 96 Oxygen Delivery Method 10/07/23 13:45 10/07/23 14:00 10/07/23 14:15 Temperature Temperature Source Pulse Rate 99 H 101 H 98 H Pulse Rate [Left Radial] Respiratory Rate Blood Pressure 189/98 H 171/92 H 148/73 H Blood Pressure [Right Arm] Blood Pressure Mean [Right Arm] 02 Sat by Pulse Oximetry 98 97 97 Oxygen Delivery Method 10/07/23 14:30 10/07/23 14:45 10/07/23 14:55 Temperature 98.0 F Temperature Source Pulse Rate 98 H 95 H 95 H Pulse Rate [Left Radial] Respiratory Rate 13 Blood Pressure 158/86 H 165/79 H 165/79 H Blood Pressure [Right Arm] Blood Pressure Mean [Right Arm] 02 Sat by Pulse Oximetry 100 100 Oxygen Delivery Method Room Air Lab Data Lab Results 10/07/23 10:29: WBC 13.5 H, RBC 4.90, Hgb 14.5, Hct 46.2, MCV 94.4 H, MCH 29.5, MCHC 31.3 L, RDW 13.0, Plt Count 336, MPV 9.1, Neut % (Auto) 80.5 H, Lymph % (Auto) 10.6, [place] % (Auto) 8.1, Eos % (Auto) 0.4, Baso % (Auto) 0.5, Neut # (Auto) 10.8 H, Lymph # (Auto) 1.4, [place] # (Auto) 1.1 H, Eos # (Auto) 0.1, Baso # (Auto) 0.1, Sodium 135 L, Potassium 4.1, Chloride 98, Carbon Dioxide 24, Anion Gap 17.1 H, BUN 42 H, Creatinine 2.00 H, Estimated Creat Clear 65, Estimated GFR 34 L, Est GFR ( Amer) 41 L, Glucose 402 H*, Calcium 9.7, Magnesium 2.2, Total Bilirubin 1.3, AST 43, ALT 37, Alkaline Phosphatase 148 H, Total Protein 8.5 H D, Albumin 4.7, Globulin 3.8 H, Albumin/Globulin Ratio 1.2, Lipase 27, Acetone Level None detected 10/07/23 10:52: VBG pH 7.45 H, VBG pCO2 34.4 L, VBG pO2 28.1, VBG HCO3 23.2, VBG Total CO2 24.3, VBG O2 Saturation 60.0, VBG Base Excess -0.8, VBG Lactic Acid 4.0 H 10/07/23 10:29 10/07/23 10:29 Orders (Tests/Meds): ED MEDICATIONS Discontinued Medications Generic Name Dose Route Start Last Admin Trade Name Freq PRN Reason Stop Dose Admin Belladonna Alkaloids 60 ml 10/07/23 12:24 10/07/23 12:34 Belladonna Alkaloids 60 Ml Ml PO 10/07/23 12:25 60 ml ONCE ONE Administration Famotidine 20 mg 10/07/23 12:24 10/07/23 12:34 Famotidine 20mg Tablet PO 10/07/23 12:25 20 mg ONCE ONE Administration Lactated Ringer's 1,000 mls @ 999 mls/hr 10/07/23 10:42 10/07/23 10:37 Lactated Ringer's 1000 Ml Bag IV 10/07/23 11:42 999 mls/hr .Q1H1M ONE Administration Sodium Chloride 1,000 mls @ 999 mls/hr 10/07/23 12:24 10/07/23 12:34 Sod Chlor 0.9% 1000ml Bag IV 10/07/23 13:24 999 mls/hr .Q1H1M ONE Administration Morphine Sulfate 4 mg 10/07/23 10:46 10/07/23 11:10 Morphine 4mg/Ml Syringe IV 10/07/23 10:47 4 mg ONCE ONE Administration Ondansetron HCl 4 mg 10/07/23 10:42 10/07/23 10:37 Ondansetron 4mg/2ml Vial IV 10/07/23 10:43 4 mg ONCE ONE Administration Prochlorperazine Edisylate 10 mg 10/07/23 11:12 10/07/23 11:18 Prochlorperazine 10mg/2ml Vial IV 10/07/23 11:13 10 mg ONCE ONE Administration ORDERS Category Date Time Status CT abdomen pelvis wo con Stat Cat Scan 10/07/23 10:47 Completed Acetone, Serum (Rapid) Stat Lab 10/07/23 10:29 Completed CBC w/Auto Diff [Complete Blood Count Auto Diff] Stat Lab 10/07/23 10:29 Completed CMP [Comprehensive Metabolic Panel] Stat Lab 10/07/23 10:29 Completed Lipase Stat Lab 10/07/23 10:29 Completed MAG [Magnesium] Stat Lab 10/07/23 10:29 Completed Osmolality Stat Lab 10/07/23 10:29 Received VBG [Venous Blood Gas] Stat RT 10/07/23 10:52 Completed Medical Decision Narrative: Patient with history and exam per above presenting for evaluation of abdominal pain Diagnoses considered include gastroparesis, PUD, bowel obstruction, hernia, electrolyte abnormality, acute kidney injury, hypovolemia, SIDNEY, among others. ED workup and treatment included: ED MEDICATIONS Discontinued Medications Generic Name Dose Route Start Last Admin Trade Name Freq PRN Reason Stop Dose Admin Belladonna Alkaloids 60 ml 10/07/23 12:24 10/07/23 12:34 Belladonna Alkaloids 60 Ml Ml PO 10/07/23 12:25 60 ml ONCE ONE Administration Famotidine 20 mg 10/07/23 12:24 10/07/23 12:34 Famotidine 20mg Tablet PO 10/07/23 12:25 20 mg ONCE ONE Administration Lactated Ringer's 1,000 mls @ 999 mls/hr 10/07/23 10:42 10/07/23 10:37 Lactated Ringer's 1000 Ml Bag IV 10/07/23 11:42 999 mls/hr .Q1H1M ONE Administration Sodium Chloride 1,000 mls @ 999 mls/hr 10/07/23 12:24 10/07/23 12:34 Sod Chlor 0.9% 1000ml Bag IV 10/07/23 13:24 999 mls/hr .Q1H1M ONE Administration Morphine Sulfate 4 mg 10/07/23 10:46 10/07/23 11:10 Morphine 4mg/Ml Syringe IV 10/07/23 10:47 4 mg ONCE ONE Administration Ondansetron HCl 4 mg 10/07/23 10:42 10/07/23 10:37 Ondansetron 4mg/2ml Vial IV 10/07/23 10:43 4 mg ONCE ONE Administration Prochlorperazine Edisylate 10 mg 10/07/23 11:12 10/07/23 11:18 Prochlorperazine 10mg/2ml Vial IV 10/07/23 11:13 10 mg ONCE ONE Administration ORDERS Category Date Time Status CT abdomen pelvis wo con Stat Cat Scan 10/07/23 10:47 Completed Acetone, Serum (Rapid) Stat Lab 10/07/23 10:29 Completed CBC w/Auto Diff [Complete Blood Count Auto Diff] Stat Lab 10/07/23 10:29 Completed CMP [Comprehensive Metabolic Panel] Stat Lab 10/07/23 10:29 Completed Lipase Stat Lab 10/07/23 10:29 Completed MAG [Magnesium] Stat Lab 10/07/23 10:29 Completed Osmolality Stat Lab 10/07/23 10:29 Received VBG [Venous Blood Gas] Stat RT 10/07/23 10:52 Completed Labs were independently interpreted by me, significant for creatinine 2.0, similar to baseline, hyperglycemia, anion gap at 17, no acidosis on VBG, leukocytosis to 13 Imaging was independently visualized and interpreted by me, significant for no acute findings Please refer to radiology report for full details. My clinical impression at this time is most consistent with nonketotic hyperglycemia, acute on chronic abdominal pain. Patient reports improvement of symptoms upon repeat evaluation. I discussed my clinical impression with patient and answered all questions. At this time, the evidence for any other entities in the differential is insufficient to warrant any further testing or ED observation. This was explained to the patient. The patient was advised that persistent or worsening symptoms require further evaluation. I confirmed the patient's understanding of this discussion. Critical Care Critical Care Time Critical Care Time: No
[2023-10-07] MEDS: ONDANSETRON 4MG/2ML VIAL 4 MG IV (10:37)
[2023-10-07] MEDS: LACTATED RINGERS 1000ML 1,000 ML 999 ML IV (10:37)
--- NOTE | 2023-10-07 10:47 | CT_ITS ---
PROCEDURE INFORMATION: Exam: CT Abdomen And Pelvis Without Contrast Exam date and time: 10/07/2023 10:54 AM Age: 62 years old Clinical indication: Abdominal pain; Additional info: Acute on chronic periumbilical abdominal pain TECHNIQUE: Imaging protocol: Computed tomography of the abdomen and pelvis without contrast. Radiation optimization: All CT scans at this facility use at least one of these dose optimization techniques: automated exposure control; mA and/or kV adjustment per patient size (includes targeted exams where dose is matched to clinical indication); or iterative reconstruction. COMPARISON: CT ABDOMEN PELVIS WO CON 09/04/2019 3:51 PM FINDINGS: Esophagus: Stable appearance of distal esophageal wall thickening. Liver: Normal. No mass. Gallbladder and biliary ducts: Previous cholecystectomy. Pancreas: Fatty infiltration of the pancreas. Spleen: Normal. No splenomegaly. Adrenal glands: Normal. No mass. Kidneys and ureters: Punctate nonobstructing left renal calculus. No hydronephrosis. Stomach and bowel: Unremarkable. No obstruction. No mucosal thickening. Appendix: No evidence of appendicitis. Intraperitoneal space: Unremarkable. No free air. No significant fluid collection. Vasculature: Unremarkable. No abdominal aortic aneurysm. Lymph nodes: Stable shotty inguinal lymph nodes. Urinary bladder: Unremarkable as visualized. Reproductive: Unremarkable as visualized. Bones/joints: Unremarkable. No acute fracture. Soft tissues: Unremarkable. IMPRESSION: 1. Stable appearance of distal esophageal wall thickening. 2. Punctate nonobstructing left renal calculus. No hydronephrosis.
--- NOTE | 2023-10-07 10:51 | PC.NURSE ---
Pt gone to RAD via wheelchair
[2023-10-07 10:58] LABS: VBG Base Excess -0.8 mmol/L (-2.4-2.3); VBG HCO3 23.2 mmol/L (23-30); VBG PCO2 34.4 mmol/L (35-51); VBG PH 7.45 mmol/L (7.31-7.41); VBG PO2 28.1 mmol/L (28-40); VBG Total CO2 24.3 mmol/L (23-27)
--- NOTE | 2023-10-07 11:00 | PC.NURSE ---
Pt returned to room from RAD
--- NOTE | 2023-10-07 11:00 | PC.NURSE ---
Angelika from LAB called VBG results. pH 7.44, CO2 34.4, pO2 28.1, Bicarb 23.2, base -0.8, sO2 60, lactic 4.0. Repeated and confirmed. Dr. Ching made aware.
[2023-10-07 11:08] LABS: Albumin Level 4.7 g/dl (3.5-5.0); Chloride 98 mmol/L (98-107); Potassium 4.1 mmoL/L (3.5-5.1); Sodium 135 mmol/L (136-145)
[2023-10-07 11:10] LABS: Basophils # 0.1 K/mm3 (0-0.2); Basophils % 0.5 % (0.1-2.0); Eosinophils # 0.1 K/mm3 (0.0-0.4); Eosinophils % 0.4 % (0.1-12.0); Hematocrit 46.2 % (42.0-52.0); Hemoglobin 14.5 g/dL (14.1-18.0); Lymphocytes # 1.4 K/mm3 (0.7-4.5); Lymphocytes % 10.6 % (10-50); Mean Corpuscular HGB Conc 31.3 g/dL (31.8-35.4); Mean Corpuscular Hemoglobin 29.5 pg (27.0-31.2); Mean Corpuscular Volume 94.4 fl (80-94); Mean Platelet Volume 9.1 fl (7.4-10.4); Monocytes # 1.1 K/mm3 (0.1-1.0); Monocytes % 8.1 % (1.7-9.3); Neutrophils # 10.8 K/mm3 (1.8-7.8); Neutrophils % 80.5 % (37.0-80.0); Platelet Count 336 K/mm3 (142-424); White Blood Count 13.5 K/mm3 (4.8-10.8)
[2023-10-07] MEDS: MORPHINE 4MG/ML SYRINGE 4 MG IV (11:10)
[2023-10-07 11:11] LABS: Alanine Aminotransferase 37 U/L (12-78); Albumin/Globulin Ratio 1.2 (1.1-1.8); Alkaline Phosphatase 148 U/L (38-126); Anion Gap 17.1 mEq/L (5-15); Aspartate Amino Transferase 43 U/L (17-59); Bilirubin,Total 1.3 mg/dl (0.2-1.3); Calcium 9.7 mg/dl (8.4-10.2); Carbon Dioxide 24 mmol/L (22.0-30.0); Globulin 3.8 g/dL (1.3-3.2); Lipase 27 U/L (23-300); Magnesium 2.2 mg/dl (1.6-2.3); Total Protein,Serum 8.5 g/dl (6.3-8.2)
[2023-10-07 11:16] LABS: Blood Urea Nitrogen 42 mg/dl (9-20); Creatinine Clearance Estimated 65 mL/min (50-200); Estimated Glomerular Filt Rate 34 ml/min (>60); GFR (African American) 41 ML/MIN (>60)
[2023-10-07 11:18] LABS: Glucose 402 mg/dl (74-100)
[2023-10-07] MEDS: PROCHLORPERAZINE 10MG/2ML VIAL 10 MG IV (11:18)
[2023-10-07 11:25] LABS: Acetone, Serum (Rapid) None Detected (None Detect)
[2023-10-07] MEDS: FAMOTIDINE 20MG TABLET 20 MG PO (12:34)
[2023-10-07] MEDS: BELLADONNA ALKALOIDS 60 ML ML PO (12:34)
[2023-10-07] MEDS: 0.9 % SODIUM CHLORIDE 1000ML 1,000 ML 999 ML IV (12:34)
--- NOTE | 2023-10-07 13:33 | PC.NURSE ---
BSFS [id number]
[2023-10-07 15:00] LABS: Reflex Lactic Add Lactic Reflex
== END 2023-10-07 14:55 | disposition home or self-care (01) ==
PROVIDERS: Emergency Provider Emergency Medicine; PCP Family Medicine
DX: R10.13 Epigastric pain (principal); R74.02 Elevation of levels of lactic acid dehydrogenase [LDH]; E11.65 Type 2 diabetes mellitus with hyperglycemia; Z79.4 Long term (current) use of insulin; K31.84 Gastroparesis; N20.0 Calculus of kidney
CPT/HCPCS: 74176; 80053; 82009; 82803; 83690; 83735; 83930; 85025; 96361; 96374; 96375; 99285; J0780; J2270; J2405; J7030; J7120

== ENCOUNTER 2024-03-04 12:54 | Day surgery (SDC) | payer MEDICARE, SELFPAY ==
[2024-02-28 13:01] VITALS: BMI 37.3
[2024-03-04] MEDS: LACTATED RINGERS 1000ML 1,000 ML 25 ML IV (13:11)
[2024-03-04 13:17] VITALS: BP 166/100; PULSE 90; RESP 18; TEMP 36.3; O2SAT 98
[2024-03-04 13:25] LABS: POC Glucose,Bedside 308 (70-110)
--- NOTE | 2024-03-04 13:30 | EXP.ANES.CKL ---
[facility] Disclaimer: The information contained in this section may have been updated after the patient was seen, as this information can be updated by other users. Medical History (Updated 02/28/24 @ 13:03 by Lilia Hwang RN) Hyperlipidemia Diabetes GERD (gastroesophageal reflux disease) Surgical History (Updated 03/04/24 @ 13:15 by Clyde Dias RN) History of ankle surgery History of back surgery History of cholecystectomy Family History Other No significant family history Social History Smoking Status: Never smoker alcohol intake: current alcohol intake frequency: holidays/special occasions only substance use type: opiates current occupational status: disabled Travel in the last 8 weeks: [place] the [place] household members: spouse and children housing: house current occupational exposures/hazards: No Have you lived/traveled outside [place] in past 30 days?: No Contact w/someone who lives/traveled outside [place] past 30 days?: No Exposure to someone with infectious disease in past 14 days?: No Do you have a fever (greater than 100.4 F or 38 C)?: No Have you tested positive for COVID-19: No Exposed to someone with COVID-19 in past 14 days?: No Do you have a sore throat?: No Do you have a cough?: No Do you have any weakness?: No Do you have any diarrhea?: No Are you experiencing any unusual bleeding?: No Do you have any muscle aches/pain?: No Do you have any abdominal pain?: No Are you experiencing loss of taste or smell?: No [facility] Anesthesia Checklist Patient Identification Patient Identification: Arm Band Structural Data Admitted From: Home Planned Operative Procedure/s: Colonoscopy Consent for Planned Operative Procedure(s) Verified: Yes Verified Documents: Surgical Consent and History and Physical NPO Status Verified Time NPO: 00:00 Additional verifications Anesthesia Reactions: No Airway Assessment Mallampati Score:: Class II C-Spine Mobility Assessed: Yes TMJ Mobility Assessed: Yes Dentition: Edentulous Neurological Assessment Level of Consciousness: Awake, Alert and Appropriate Anesthesia Plan Anesthesia Risk discussed: Yes Anesthesia Plan: Verified ASA Class: III Anesthesia Type: MAC
[2024-03-04 13:35] VITALS: O2SAT 98
--- NOTE | 2024-03-04 13:35 | EXP.HP ---
History of Present Illness *Admission Date: 03/04/24 *Reason for visit:: Screening for colon cancer *History of present illness: Mr. Corea is a 63-year-old gentleman who is here for screening colonoscopy. His last complete colonoscopy was at age 51. The examination is deemed medically necessary for screening colonoscopy. The patient has been seen, interviewed and examined prior to the procedure by both myself and the anesthesia provider. [facility] Disclaimer: The information contained in this section may have been updated after the patient was seen, as this information can be updated by other users. Medical History (Updated 03/04/24 @ 13:39 by Renato Ayala II, MD) Hyperlipidemia Diabetes GERD (gastroesophageal reflux disease) Surgical History (Updated 03/04/24 @ 13:15 by Clyde Dias RN) History of ankle surgery History of back surgery History of cholecystectomy Family History Other No significant family history Social History Smoking Status: Never smoker alcohol intake: current alcohol intake frequency: holidays/special occasions only substance use type: opiates current occupational status: disabled Travel in the last 8 weeks: [place] the [place] household members: spouse and children housing: house current occupational exposures/hazards: No Have you lived/traveled outside [place] in past 30 days?: No Contact w/someone who lives/traveled outside [place] past 30 days?: No Exposure to someone with infectious disease in past 14 days?: No Do you have a fever (greater than 100.4 F or 38 C)?: No Have you tested positive for COVID-19: No Exposed to someone with COVID-19 in past 14 days?: No Do you have a sore throat?: No Do you have a cough?: No Do you have any weakness?: No Do you have any diarrhea?: No Are you experiencing any unusual bleeding?: No Do you have any muscle aches/pain?: No Do you have any abdominal pain?: No Are you experiencing loss of taste or smell?: No Other Medical History Have you received the Flu Vaccine for this season: No Have you received the Pneumonia Vaccine: No Review of Systems Review of Systems Review of systems (narrative): Negative *Cardiovascular Comments: Negative *Gastrointestinal Comments: Negative *Genitourinary Comments: Negative *Musculoskeletal Comments: Negative *Neurologic Comments: Negative Meds Home Medications and Allergies Home Medications ?Medication ?Instructions ?Recorded ?Confirmed ?Type buprenorphine 8 mg-naloxone 2 mg 1.5 tab sublingual DAILY ADDICTION 09/06/19 02/28/24 History sublingual tablet atorvastatin 20 mg tablet 20 mg PO DAILY 06/15/22 02/28/24 History insulin glargine 100 unit/mL (3 100 unit SQ DAILY 06/15/22 02/28/24 History mL) subcutaneous pen (Lantus Solostar U-100 Insulin) insulin lispro 100 unit/mL 100 unit SQ DAILY 06/15/22 02/28/24 History subcutaneous pen (Humalog KwikPen (U-100) Insulin) metoclopramide HCl 10 mg tablet 10 mg PO QAC 10/05/22 02/28/24 History (Reglan) mupirocin 2 % topical ointment 1 applic topical BID cellulitis 10/05/22 02/28/24 Rx #30 grams dicyclomine 20 mg tablet 20 mg PO BID #14 tabs 10/07/23 02/28/24 Rx omeprazole 20 mg capsule,delayed 20 mg PO DAILY 28 days #28 caps 10/07/23 02/28/24 Rx release ondansetron 4 mg disintegrating 4 mg PO Q8H PRN nausea and 10/07/23 02/28/24 Rx tablet vomiting 5 days #10 tabs New Prescriptions to Start Prescriptions: Allergies Allergy/AdvReac Type Severity Reaction Status Date / Time sulfamethoxazole (From Allergy Mild Unknown Verified 02/28/24 13:00 BACTRIM) allergy reaction trimethoprim (From BACTRIM) Allergy Mild Unknown Verified 02/28/24 13:00 allergy reaction Exam Data for Last 24 hours Vital signs and Labs for Last 24 Hours: Temp Pulse Resp BP Pulse Ox O2 Del Method 97.3 F L 90 18 166/100 H 98 Room Air 03/04/24 13:17 03/04/24 13:17 03/04/24 13:17 03/04/24 13:17 03/04/24 13:17 03/04/24 13:17 Laboratory Results - last 24 hr 03/04/24 13:16: POC Glucose 308 H* *Routine HEENT Exam Head: Present normocephalic Eye: Present EOMI and PERRL ENT: Present mucous membranes moist *Routine Neck Exam Neck: Present supple *Routine Respiratory Exam Respiratory: Present CTA bilaterally *Routine Cardiovascular Exam Cardiovascular: Present RRR *Routine Abdominal Exam Abdominal: Present soft and normoactive bowel sounds; Absent tenderness *Routine Rectal Exam Rectal:: deferred *Routine Genitalia Exam Genitalia:: deferred *Routine Extremities Exam Extremities: Absent cyanosis, clubbing or edema *Routine Skin Exam Skin: Present warm; Absent rash *Routine Neurological Exam Neurological: Present alert and oriented X3 Assessment and Plan *Assessment and plan (1) Screening for colon cancer: Status: Acute Category: Medical Code(s): Z12.11 - Encounter for screening for malignant neoplasm of colon Plan A/P: 1. Screening for colon cancer is the preprocedural diagnosis. The patient will be anesthetized/sedated using MAC sedation. The patient has been seen and examined. Cardiac and lung assessment prior to the examination is stable. Proceed with planned screening colonoscopy
--- NOTE | 2024-03-04 13:39 | P.PCN_ITS ---
[facility] Procedure Note Date: 03/04/24 Time: 14:04 Procedure Note:: Colonoscopy Procedure Report: Colonoscopy with cold snare polypectomy Endoscopist: Renato Ayala II, MD Referring physician: Mitzi Faye M.D. Date of Procedure: March 04, 2024 Equipment: Olympus 190 variable stiffness pediatric colonoscope Sedation: MAC sedation Indication: Mr. Corea is a 63-year-old gentleman who is here for screening colonoscopy. His last complete colonoscopy was at age 51. He reports no abdomi nal pain, weight loss, change in his bowel habits or rectal bleeding. He does state that his paternal grandmother had colon cancer. Procedure: Prior to the procedure, a history and physical exam was performed, and patient's medications and allergies were reviewed. The risks, benefits and alternatives of the sedation and procedure were discussed with the patient. All questions were answered and informed consent was obtained. The patient was brought to the procedure room. Patient identification and proposed procedure were verified by the physician and the nurse. The patient was placed in a left lateral decubitus position and the scope was passed under direct vision. Throughout the procedure, the patient's blood pressure, pulse, and oxygen saturations were monitored continuously. The colonoscopy was accomplished without difficulty. The patient tolerated the procedure well. Findings: On digital rectal examination there was normal rectal tone. There were no external hemorrhoids. The prostate was 2+, very mildly firm but symmetric without nodules. The colonoscope was introduced through the anal canal to the rectum and advanced to the cecum. The ileocecal valve and appendiceal orifice were identified. The scope was advanced a short distance into the ileum which appeared grossly normal. The scope was then withdrawn into the colon. The cecum, ascending and transverse colon and mucosa were grossly normal. There were 2 polyps (descending x 2 (4 and 5 mm)). Both of these were removed. Both of these were removed via cold snare polypectomy. There were scattered diverticuli throughout the descending and sigmoid colon (LEFT colon). The rectum itself was normal. Upon retroflexion within the rectum there were grade 1-2 internal hemorrhoids. The preparation was fair throughout with [place] Preparation Score of 7 out of 9. The cecal time was 12 minutes. Impression: 1. Diminutive colonic polyps x 2 2. Left-sided diverticulosis 3. Grade 1-2 internal hemorrhoids Plan: I will follow-up the polyp histology and recommend repeat surveillance colonoscopy again in 7 years if the polyps are adenomatous. I would encourage psyllium bulking fiber supplementation on a maintenance basis.
[2024-03-04 14:08] VITALS: BP 127/55; PULSE 79; RESP 16; TEMP 36.6; O2SAT 98
[2024-03-04 14:18] VITALS: BP 125/57; PULSE 81; RESP 16; O2SAT 98
[2024-03-04 14:28] VITALS: BP 151/70; PULSE 81; RESP 16; O2SAT 98
[2024-03-04 14:34] VITALS: BP 142/78; PULSE 77; RESP 16; O2SAT 98
== END 2024-03-04 14:36 | disposition home or self-care (01) ==
PROVIDERS: PCP Family Medicine; Visit Provider Internal Medicine Gastroenterology
PROC: (CPT 45385; principal; 2024-03-04 14:30)
DX: K63.5 Polyp of colon (principal); K57.30 Diverticulosis of large intestine without perforation or abscess without bleeding; K64.8 Other hemorrhoids; Z12.11 Encounter for screening for malignant neoplasm of colon; Z80.0 Family history of malignant neoplasm of digestive organs
CPT/HCPCS: 45385; 82962; J7120

== ENCOUNTER 2024-03-18 14:00 | Outpatient (RCR) | payer MEDICARE, SELFPAY | END 2024-03-18 23:59 | disposition home or self-care (01) | LOC: PT 14:00 | PROVIDERS: Visit Provider Nurse Practitioner Family | DX: E11.621 Type 2 diabetes mellitus with foot ulcer (principal); L97.529 Non-pressure chronic ulcer of other part of left foot with unspecified severity; E11.65 Type 2 diabetes mellitus with hyperglycemia; Z79.4 Long term (current) use of insulin | CPT/HCPCS: 97163; 97597 ==

== ENCOUNTER 2024-04-01 14:00 | Outpatient (RCR) | payer MEDICARE, SELFPAY | END 2024-04-01 23:59 | disposition home or self-care (01) | LOC: PT 14:00 | PROVIDERS: Visit Provider Nurse Practitioner Family | DX: L97.529 Non-pressure chronic ulcer of other part of left foot with unspecified severity (principal); E11.65 Type 2 diabetes mellitus with hyperglycemia; Z79.4 Long term (current) use of insulin | CPT/HCPCS: 97597 ==

== ENCOUNTER 2024-08-06 13:43 | Outpatient (CLI) | payer MEDICARE, SELFPAY ==
--- NOTE | 2024-08-06 13:45 | XR_ITS ---
FINAL REPORT CLINICAL HISTORY: ankle pain COMPARISON: None FINDINGS: LEFT ANKLE Three views demonstrate no acute fracture or dislocation. There is flattening of the calcaneus. Extensive sclerosis is noted of the calcaneus. There is mild lateral subluxation of the talus relative to the distal tibia. There appears to have been resection of the distal fibula. Deformity is noted of the distal tibial diaphysis which may be due to old healed fracture. The soft tissues are unremarkable. IMPRESSION: Advanced degenerative changes as described. Reviewed, Interpreted and Dictated by Jose King MD Transcribed by Pretty Varela Authenticated and [facility]
--- NOTE | 2024-08-06 13:45 | XR_ITS ---
FINAL REPORT CLINICAL HISTORY: foot pain-hammertoe COMPARISON: 06/24/2022 FINDINGS: LEFT FOOT Three views of the left foot demonstrate no acute fracture or dislocation. There has been fusion of the mortise. Pes planus deformity is noted. The bones are osteopenic. There appears to be old healed fracture deformity of the distal tibia and fibula. There is a probable old calcaneal fracture which is unchanged. Incidental orthopedic staple is noted in the medial 1st digit, also unchanged. The soft tissues are unremarkable. IMPRESSION: Advanced degenerative/chronic changes as described. Reviewed, Interpreted and Dictated by Jose King MD Transcribed by Pretty Varela Authenticated and [facility]
--- OUTSIDE RECORDS SUMMARY | 2024-08-06 13:46 | XMS_ITS | Clinical Summary ---
Author Organization [employer] Address [address] [place] [address] Care Team Providers Care Cleaner Window Name Role Phone Unavailable Primary Care Provider Unavailabl e Social History Tobacco Use Types Packs/Day Years Used Date Smoking Tobacco: Never Assessed Sex and Gender Information Value Date Recorded Sex Assigned at Male 08/17/2021 8:14 PM CDT Legal Sex Male 8:14 PM CDT Gender Identity Male 08/17/2021 8:14 PM CDT Sexual Orientation Not on file Plan of Treatment Not on file
--- OUTSIDE RECORDS SUMMARY | 2024-08-06 13:46 | XMS_ITS | Encounter Summary ---
Author Organization [facility] [employer] Address [address] [place] [id number] Care Team Providers Care Director Of Home Economics Name Role Phone Unavailable Primary Care Provider Unavailabl e Encounter Details Date Type Department Care Team (Late st Contact Info) Description 05/13/2021 Transcribed Document [facility] Family Medicine [facility] [place] [address] ProviderDario MD [address] [place] [address] Social History Tobacco Use Types Packs/Day Years Used Date Smoking Tobacco: Never Assessed Sex and Gender Information Value Date Recorded Sex Assigned at Male 08/17/2021 8:14 PM CDT Legal Sex Male 8:14 PM CDT Gender Identity Male 08/17/2021 8:14 PM CDT Sexual Orientation Not on file documented as of this encounter Miscellaneous Notes * Cerner Conversion Note - Historical Provider, - 05/13/2021 7:45 AM CDT [facility] PostOp Summary Primary Physician: HERMINIO NORIEGA DPM-POD Finalized Date/Time: 05/14/21 14:25:34 Pt. Name: TERA COREA /Sex: 1960 Male Med Rec #: [id number] Physician: HERMINIO NORIEGA, DPM-POD Financial #: [id number] Pt. Type: O Room/Bed: 18 Admit/Disch: 05/13/21 06:31:00 - 05/13/21 09:45:00 Institution: [facility] OR PostOp Case Times Entry 1 In PACU II 05/13/21 09:00:00 Ready for PACU II 05/13/21 09:45:00 Discharge Discharge from PACU 05/13/21 09:45:00 II Last Modified By: SINCERE ELLINGTON RN 05/13/21 09:48:42 [facility] PostOp Case Times Audit 05/13/21 09:48:42 Cap And Hat Production Supervisor: AMALIA Modifier: ROYBEDWARD <+> 1 Ready for PACU II Discharge <+> 1 Discharge from PACU II Finalized By: SANTIAGO SLAUGHTER Document Signatures Signed By: SINCERE ELLINGTON RN 05/13/21 09:48 SANTIAGO SLAUGHTER 05/14/21 14:25 Unfinalized History Date/Time Username Reason for Unfinalizing Freetext Reason for Unfinalizing 05/14/21 14:25 [email or web address] Correct Billing documented in this encounter Plan of Treatment Not on file documented as of this encounter Visit Diagnoses Not on filedocumented in this encounter
--- OUTSIDE RECORDS SUMMARY | 2024-08-06 13:46 | XMS_ITS | Clinical Summary ---
Author Organization [facility] Address [address] [place] [address] Care Team Providers Care Metal Patternmaker Apprentice Name Role Phone Kwesi Faye MD Primary Care Provider [phone] Allergies Active Allergy Reactions Criticality Noted Date Comments Sulfamethoxazole-Trimethoprim Hives Medium 2012 Medications buprenorphine-n aloxone (Suboxone) 8-2 MG SL tablet DISSOLVE 1 & ONE-HALF TABLETS UNDER THE TONGUE EVERY DAY 0 Active omeprazole (PriLOSEC) [address] capsule Take 1 capsule (20 mg) by mouth 1 (one) time each day. 4 Active glucagon 1 MG injection Use as directed for severe hypoglycemia 1 each 3 4 Active Blood Glucose Monitoring Suppl (Blood Glucose Monitor System) w/Device kit Please provide meter and strips compatible with patient's insurance 1 kit 5 Active glucose blood test strip 4x/day, Please provide strips compatible with patient's meter and insurance 120 each 11 5 Active lisinopril 2.5 MG tablet Take 1 tablet (2.5 mg) by mouth 1 (one) time each day. 30 tablet 5 5 08/26/19 25 Active insulin glargine (Lantus SoloStar) 100 UNIT/ML injection pen Inject 18 Units under the skin every morning. 30 mL 2 5 05/30/19 26 Active insulin lispro (HumaLOG KWIKPEN) 100 UNIT/ML injection pen Inject subcutaneous 10 units before first meal and 5 units before second meal, correction 1:40>150 to MDD of 50 units 45 mL 3 5 Active atorvastatin (Lipitor) 40 MG tablet Take 1 tablet by mouth daily. 90 tablet 1 5 11/26/19 25 Active pen needle, diabetic (B-D UF III MINI PEN NEEDLES) 31G X 5 MM misc Use 4x/day 120 each 11 5 Active Lancets misc Use 1-4x/day as directed 120 each 11 5 Active Continuous Glucose Sensor (FreeStyle Taylor 3 Sensor) misc 1 sensor every 14 days. 6 each 3 5 07/02/19 26 Active Active Problems Problem Noted Date Diagnosed Date Skin ulcer of left great toe 11/22/2023 Hypoglycemia 01/31/2023 Diabetic ulcer of toe of lef t foot associated with type 2 diabetes mellitus 11/10/2022 Non-compliance 11/10/2022 Diabetic ulcer of left midfo ot associated with diabetes mellitus due to underlying condition, limited to breakdown of skin 11/11/2021 Class 2 severe obesity due t o excess calories with serious comorbidity and body mass index (BMI) of 35.0 to 35.9 in adult 04/12/2021 Neuropathy 01/11/2021 Type 2 diabetes 08/27/2020 Overview (11/22/2021): Regulatory Update November 2021 Gastroparesis 08/27/2020 Hypertension 08/27/2020 Hyperlipidemia 08/27/2020 Retinopathy 08/27/2020 Encounters Date Type Department Care Team Description 07/01/2024 Refill [facility] Endocrinology [address] [place] [address] Lu Cameron APRN 05/29/2024 3:20 PM EDT Office Visit [facility] Endocrinology [address] [place] [address] Lu Cameron, HOUSING INSTALLER Type 2 diabetes mellitus with hyperglycemia, with long-term current use of insulin ([facility]) (Primary Dx); Hyperlipidemia, unspecified hyperlipidemia type; Hypertension, unspecified type; Neuropathy; Retinopathy; Hypoglycemia 05/29/2024 Travel from Last 3 Months Family History Medical History Relation Name Comments Cardiac disorder Father Conversions - Other Mother No famil y history of disorders Colon cancer Other 1 Conversions - Other Other 2 Reported Family History Of Heart Disease Relation Name Status Comments Father Mother Other 1 Other 2 Social History Tobacco Use Types Packs/Day Years Used Date Smoking Tobacco: Never Smokeless Tobacco: Never Tobacco Cessation:Counseling Given: Not Answered Alcohol Use Standard Drinks/Week Comments Not Currently 0 (1 standard drink = 0.6 oz pur e alcohol) PHQ-2 Answer Date Recorded Patient Health Questionnaire-2 Score 0 01/31/2023 Sex and Gender Information Value Date Recorded Sex Assigned at Not on file Legal Sex Male 7:35 PM EDT Gender Identity Not on file Sexual Orientation Not on file Last Filed Vital Signs Vital Sign Reading Time Taken Comments Blood Pressure 162/90 05/29/2024 2:48 PM EDT Pulse 73 05/29/2024 2:48 PM EDT Temperature 36.6 C (97.9 F) 08/27/2020 2:24 PM EDT Respiratory Rate 18 07/14/2020 10:50 AM EDT Oxygen Saturation - - Inhaled Oxygen Concentration - - Weight 117 kg (257 lb 11.5 oz) 05/29/2024 2:48 P M EDT Height 177.8 cm (5' 10 ) 05/29/2024 2:48 PM EDT Body Mass Index 36.98 05/29/2024 2:48 PM EDT Plan of Treatment Upcoming Encounters Date Type Department Care Team (Late st Contact Info) Description 09/05/2024 2:40 PM EDT Office Visit [facility] Endocrinology [address] [place] [address] Lu Cameron S, HOUSING INSTALLER [address] [place] [address] Health Maintenance Due Date Last Done Comments [facility]-HIV Screening 1960 [facility]-Hepatitis C Screening 1960 [facility]-Medicare Annual Wellness (AWV) 1960 [facility]-/Child/Adol SDOH Screenings 1960 Diabetes: Dental Exam 12/11/1971 [facility]- SDOH Screenings 12/11/1979 [facility]-Adult SDOH Screenings 12/11/1979 [facility]-DTaP,Tdap,and Td Vaccines (1 - Tdap) 1980 [facility]-Pneumococcal Vaccine: 50+ Years (1 of 2 - PCV) 1980 CT Colonography 2006 Colonoscopy 2006 FIT-DNA 2006 FIT 2006 FOBT 2006 Sigmoidoscopy 2006 [facility]-Colorectal Cancer Screening 2006 [facility]-Zoster Vaccines (1 of 2) 12/11/2011 [facility]-RSV Vaccine: 60+ Years or (1 - Risk 60-74 years 1-dose series) 2021 FAT-BAZEM-02 Vaccine ( - season) 2023 [facility]-Depression Screening 02/01/2024 01/31/2023 [facility]-Diabetes: Hemoglobin A1C 08/28/202410/2024, 02/27/2024, 11/22/2023, Additional history exists [facility]-Influenza Vaccine (Season Ended) 2024 02/10/2022 [facility]-Obesity Intervention Completed 025, 02/27/2024, 11/22/2023, Additional history exists HPV Vaccines Aged Out No longer eligi ble based on patient's age to complete this topic [facility]-HIB Vaccines Aged Out No longer e ligible based on patient's age to complete this topic [facility]-Hepatitis A Vaccines Aged Out No longer eligible based on patient's age to complete this topic [facility]-IPV Vaccines Aged Out No longer e ligible based on patient's age to complete this topic [facility]-Rotavirus Vaccines Aged Out No lo nger eligible based on patient's age to complete this topic Procedures Procedure Name Priority Date/Time Associated Diagnosis Comments POCT GLYCOSYLATED HEMOGLOBIN (HGB A1C) Routine 05/29/2024 2:58 PM EDT Type 2 diabetes mellitus with hyperglycemia, with long-term current use of insulin ([facility]) from Last 3 Months Results * POCT glycosylated hemoglobin (Hb A1C) (05/29/2024 2:58 PM EDT) POCT Hemoglobin A1C 8.7 <5.7% Non-Diabe tic % [facility] Kit Lot Number [id number] [facility] Kit Expiration Date 04/19/2026 [facility] Blood Venous blood specimen / Unknown 05/29/2024 2:58 PM EDT us Lu Cameron HOUSING INSTALLER POINT OF CARE TEST ENTER/ED IT ORDERABLES Final Result [facility] [address] [place] [address] from Last 3 Months Insurance [facility] [place] [address] Care Teams Metal Patternmaker Apprentice Relationship Specialty Start Date End Date Kwesi Faye MD [address] [place] [id number] PCP - General Family Medicine 05/01/23
--- OUTSIDE RECORDS SUMMARY | 2024-08-06 13:46 | XMS_ITS | Encounter Summary ---
Author Organization [employer] Address [address] [place] [address] Care Team Providers Care Customer Marketing Manager Name Role Phone Unavailable Primary Care Provider Unavailabl e Encounter Details Date Type Department Care Team (Late st Contact Info) Description 05/13/2021 Transcribed Document [facility] Family Medicine [facility] [place] [address] ProviderDario MD [address] [place] [address] Social History Tobacco Use Types Packs/Day Years Used Date Smoking Tobacco: Never Assessed Sex and Gender Information Value Date Recorded Sex Assigned at Male 08/17/2021 8:14 PM CDT Legal Sex Male 8:14 PM CDT Gender Identity Male 08/17/2021 8:14 PM CDT Sexual Orientation Not on file documented as of this encounter Miscellaneous Notes * Cerner Conversion Note - Dario ProviderMD - 05/13/2021 9:27 AM CDT Patient Education Materials Follows: Outpatient Surgery, Adult, Care After This sheet gives you information about how to care for yourself after your procedure. Your health care provider may also give you more specific instructions. If you have problems or questions, contact your health care provider. What can I expect after the procedure? After the procedure, it is common to have: ??? Tenderness and numbness at the surgical site. ??? Swelling, bruising, and numbness around the surgical site. ??? Nausea. Follow these instructions at home: For the time period you were told by your health care provider: ??? Rest. ??? Do not participate in activities where you could fall or become injured. ??? Do not drive or use machinery. ??? Do not drink alcohol. ??? Do not take sleeping pills or medicines that cause drowsiness. ??? Do not make important decisions or sign legal documents. ??? Do not take care of children on your own. Medicines ??? Take xxuy-fyq-ltbiidu and prescription medicines only as told by your health care provider. ??? If you were prescribed an antibiotic medicine, take it as told by your health care provider. Do not stop taking the antibiotic even if you start to feel better. ??? Ask your health care provider if the medicine prescribed to you: ? Requires you to avoid driving or using machinery. ? Can cause constipation. You may need to take these actions to prevent or treat constipation: ? Drink enough fluid to keep your urine pale yellow. ? Take fuec-pqm-wkoxsqy or prescription medicines. ? Eat foods that are high in fiber, such as beans, whole grains, and fresh fruits and vegetables. ? Limit foods that are high in fat and processed sugars, such as fried or sweet foods. Eating and drinking ??? Follow the diet recommended by your health care provider. ??? When you are hungry, begin eating light and bland foods, such as toast. Gradually return to your regular diet. ??? If you vomit: ? Drink clear fluids slowly and in small amounts as you are able. Clear fluids include water, ice chips, low-calorie sports drinks, and fruit juice that has water added (diluted fruit juice). ? Eat bland, szyf-rv-vafaft foods in small amounts as you are able. These foods include bananas, applesauce, rice, lean meats, toast, and crackers. Incision care ??? Follow instructions from your health care provider about how to take care of an incision, if you have one. Make sure you: ? Wash your hands with soap and water for at least 20 seconds before and after you change your bandage (dressing). If soap and water are not available, use hand badger distiller operator. ? Change your dressing as told by your health care provider. ? Leave stitches (sutures), skin glue, or adhesive strips in place. These skin closures may need to stay in place for 2 weeks or longer. If adhesive strip edges start to loosen and curl up, you may trim the loose edges. Do not remove adhesive strips completely unless your health care provider tells you to do that. ??? Check your incision area every day for signs of infection. Check for: ? Redness, swelling, or pain. ? Fluid or blood. ? Warmth. ? Pus or a bad smell. Activity ??? Do not play contact sports until your health care provider says it is okay. ??? Follow instructions from your health care provider about lifting heavy objects. You may be told not to lift things that weigh more than a certain amount. ??? Return to your normal activities as told by your health care provider. Ask your health care provider what activities are safe for you. General instructions ??? If you have sleep apnea, surgery and certain medicines can increase your risk for breathing problems. Follow instructions from your health care provider about wearing your sleep device: ? Anytime you are sleeping, including during daytime naps. ? While taking prescription pain medicines, sleep medicines, or medicines that make you drowsy. ??? Have a responsible adult stay with you for the time you are told. It is important to have someone help care for you until you are awake and alert. ??? Do not use any products that contain nicotine or tobacco, such as cigarettes, e-cigarettes, and chewing tobacco. These can delay healing after surgery. If you need help quitting, ask your health care provider. ??? Ask your health care provider when you can take baths or showers, swim, or use a hot tub. You may only be allowed to take sponge baths. ??? Keep all follow-up visits as told by your health care provider. This is important. Contact a health care provider if: ??? You have any of these signs of infection: ? Redness, swelling, or pain around your incision or IV site. ? Fluid or blood coming from your incision. ? Warmth coming from your incision. ? Pus or a bad smell coming from your incision. ? A fever. ??? You feel light-headed or you faint. ??? You develop a rash. ??? You keep feeling nauseous or keep vomiting. ??? You have severe pain, even after taking the medicines your health care provider has prescribed or recommended. ??? You have constipation. Get help right away if: ??? You cannot urinate. ??? You have trouble breathing. ??? You have chest pain. ??? Your legs become painful or swollen. These symptoms may represent a serious problem that is an emergency. Do not wait to see if the symptoms will go away. Get medical help right away. Call your local emergency services (911 in the [place] Do not drive yourself to the hospital. Summary ??? Nausea is common after a procedure. ??? Have a responsible adult stay with you for the time you are told. It is important to have someone help care for you until you are awake and alert. ??? Follow the diet recommended by your health care provider. If you vomit, drink clear fluids slowly and eat bland, wbxy-um-vfiyyn foods in small amounts. ??? Ask your health care provider what activities are safe for you. This information is not intended to replace advice given to you by your health care provider. Make sure you discuss any questions you have with your health care provider. Document Revised: 06/05/2020 Document Reviewed: 11/28/2019 [employer] Patient Education ? 2020 [employer]. documented in this encounter Plan of Treatment Not on file documented as of this encounter Visit Diagnoses Not on filedocumented in this encounter
--- OUTSIDE RECORDS SUMMARY | 2024-08-06 13:46 | XMS_ITS | Encounter Summary ---
Author Organization [employer] Address [address] [place] [address] Care Team Providers Care Peoplesoft Programmer Name Role Phone Unavailable Primary Care Provider Unavailabl e Encounter Details Date Type Department Care Team (Late st Contact Info) Description 05/11/2021 Transcribed Document [facility] Family [place] [facility] [place] [address] ProviderDario MD [address] [place] [id number] Social History Tobacco Use Types Packs/Day Years Used Date Smoking Tobacco: Never Assessed Sex and Gender Information Value Date Recorded Sex Assigned at Male 08/17/2021 8:14 PM CDT Legal Sex Male 8:14 PM CDT Gender Identity Male 08/17/2021 8:14 PM CDT Sexual Orientation Not on file documented as of this encounter Miscellaneous Notes * Cerner Conversion Note - Historical ProviderMD - 05/11/2021 12:05 PM CDT Spiritual Care Assessment Entered On: 05/13/2021 8:00 EDT Performed On: 05/13/2021 6:46 EDT by MIGUEL MARTIN General Information Initial Visit : Yes Referred by : Patient Referral Reason Comment : Pre-surgery visit Ministry Provided to : Patient, Family/Significant other MIGUEL MARTIN - 05/13/2021 8:00 EDT Spiritual Assessment Spiritual Assessment Comment/Summary Points : Provided pre-surgery visit and prayer with patient and . Spirital Assessment Comment/Summary Report : SPIRITUAL ASSESSMENT COMMENT/SUMMARY No qualifying data available. MIGUEL MARTIN 05/13/2021 8:00 EDT Interventions Emotional Support : Empathic/Engaged listening, Family/Significant other supported Spiritual and Lutheran : Prayer shared, Spiritual/Lutheran support provided MIGUEL MARTIN 05/13/2021 8:00 EDT documented in this encounter Plan of Treatment Not on file documented as of this encounter Visit Diagnoses Not on filedocumented in this encounter
--- OUTSIDE RECORDS SUMMARY | 2024-08-06 13:46 | XMS_ITS | Referral Summary ---
Author Organization [employer] Address [address] [place] [address] Care Team Providers Care Middle School Director Name Role Phone Unavailable Primary Care Provider [...]
--- OUTSIDE RECORDS SUMMARY | 2024-08-06 13:46 | XMS_ITS | Encounter Summary ---
Author Organization [employer] Address [address] [place] [id number] Care Team Providers Care Wafer Cleaner Name Role Phone Unavailable Primary Care Provider Unavailabl e Encounter Details Date Type Department Care Team (Late st Contact Info) Description 05/13/2021 Transcribed Document [facility] [place] [facility] [place] [address] ProviderDario MD [address] [place] [id number] Social History Tobacco Use Types Packs/Day [...] Historical Provider, - 05/13/2021 7:45 AM CDT [facility] Main OR Preop Summary Primary Physician: HERMINIO NORIEGA, PIYUSHM-POD Finalized Date/Time: 05/13/21 13:52:43 Pt. Name: TERA COREA /Sex: 1960 Male Med Rec #: [id number] Physician: HERMINIO NORIEGA, DPM-POD Financial #: [id number] Pt. Type: O Room/Bed: 18 Admit/Disch: 05/13/21 06:31:00 - 05/13/21 09:45:00 Institution: [facility] PreOp Case Times Entry 1 In Preop 05/13/21 05:53:00 Ready for Holding n/a Room Patient Ready for 05/13/21 06:38:00 Surgery Patient Out of Preop 05/13/21 07:28:00 Patient Out of n/a Holding Room Last Modified By: MIKE DELUCA 05/13/21 13:52:39 [facility] PreOp Case Times Audit 05/13/21 13:52:39 Knife Machine Operator: LISA Modifier: LISA <+> 1 Patient Out of Preop Finalized By: MIKE DELUCA Document Signatures Signed By: MIKE DELUCA 05/13/21 13:52 Electronically signed by Meena [facility] Conversion Picking Table Worker Cerner at 06/07/2022 11:44 PM CDT documented in this encounter Plan of Treatment Not on file documented as of this encounter Visit Diagnoses Not on filedocumented in this encounter
--- OUTSIDE RECORDS SUMMARY | 2024-08-06 13:46 | XMS_ITS | Encounter Summary ---
Author Organization [employer] Address [address] [place] [address] Care Team Providers Care Slab Tripper Name Role Phone Unavailable Primary Care Provider Unavailabl e Encounter Details Date Type Department Care Team (Late st Contact Info) Description 05/13/2021 Transcribed Document [facility] [place] [facility] [place] [address] ProviderDario MD [address] [place] [id number] Social History Tobacco Use Types Packs/Day Years Used Date Smoking Tobacco: Never Assessed Sex and Gender Information Value Date Recorded Sex Assigned at Male 08/17/2021 8:14 PM CDT Legal Sex Male 8:14 PM CDT Gender Identity Male 08/17/2021 8:14 PM CDT Sexual Orientation Not on file documented as of this encounter Miscellaneous Notes * Cerner Conversion Note - Historical ProviderMD - 05/13/2021 9:27 AM CDT [facility] [place] [address] TERA COREA :1960 Visit Time:05/13/2021 What to do next Your Diagnosis Hallux varus (acquired), left foot Other hammer toe(s) (acquired), left foot, Other hammer toe(s) (acquired), left foot Instructions From Your Care Team Diet after Discharge: Resume usual diet as tolerated, Do not drink any alcoholic beverages Activity after Discharge: Rest and relax today, No strenuous activity. ((( weight bearing status )))) Lifting Restrictions: No heavy lifting Driving after Discharge: Do not drive Showering/Bathing: Do not get dressing wet Notify Provider of: Fever or chills, excessive bleeding, pain uncontrolled by medication, swelling, pus-like drainage, loss of sensation and/or change in color of affected extremity Wound/Incision Care after Discharge: DO NOT CHANGE DRESSING See separate sheet for additional post operative instructions Ice on 20 minutes, off 40 minutes. Ice to ankle x 48 hours. 20 minutes per hour or as tolerated Take pain medication with food, take stool softeners while on pain medication. Do Not exceed 4000mg of acetaminophen (Tylenol) per day Follow-Up Appointments Follow Up with HERMINIO NORIEGA When Within 2 to 3 days Where: [address] [place] [address]- [facility] (1) Medications What How Much When Instructions Next Dose atorvastatin (atorvastatin 10 mg oral tablet) 1 Tablet(s) Oral At Bedtime buprenorphine-naloxone (Suboxone) 8 Milligram(s) SubLINgual Every Day buPROPion (Wellbutrin SR 150 mg/ 12 hours oral tablet, extended release) 1 Tablet(s) Oral At Bedtime insulin isophane (NPH)-insulin regular (NovoLIN 70/ 30) 40 Unit(s) SubCutaneous Every Morning insulin isophane (NPH)-insulin regular (NovoLIN 70/ 30) 10 Unit(s) SubCutaneous At Bedtime metoclopramide (metoclopramide 10 mg oral tablet) 1 Tablet(s) Oral At Bedtime Take your medications faithfully. Do NOT skip medication. Do NOT stop taking medications without the direction of a physician. Carry a list of your medications with you at all times, and take this medication list with you to your first follow up visit. Report any side effects. Avoid herbal remedies unless discussed with your physician. As part of your treatment plan, your physician may have prescribed a limited course of a controlled substance. This medication may be given to help people with moderate or severe pain or for other medical conditions, but there are risks involved with treatment. Common side effects may include nausea, constipation, drowsiness, sweating, itching, dry mouth, and rash. More serious side effects may include cognitive and motor impairment, like problems with thinking, concentrating, alertness, and movement (e.g. slowed reflexes), and driving and operating heavy machinery can be dangerous. It is important for you to talk to your physician if you have these side effects or questions. These controlled substances can produce physical dependence and be habit-forming if taken for an extended period of time, which means that the body has gotten used to them and may experience withdrawal symptoms if they are abruptly stopped. Withdrawal symptoms can include runny nose, sweating, goose bumps, diarrhea, abdominal cramping, rapid heartbeat, difficulty sleeping, and nervousness. Please dispose of unused and medications per pharmacy guidance. Education Materials Outpatient Surgery, Adult, Care After This sheet [...] children on your own. Medicines ??? Take [id number] and prescription medicines only as told by [...] keep your urine pale yellow. ? Take nfdo-ail-gevldte or prescription medicines. ? Eat foods that [...] added (diluted fruit juice). ? Eat bland, pctc-nx-swyaas foods in small amounts as you are [...] and water are not available, use hand county manager. ? Change your dressing as told by [...] drink clear fluids slowly and eat bland, lwai-sp-ykfrha foods in small amounts. ??? Ask your health care provider what activities are safe for you. This information is not intended to replace advice given to you by your health care provider. Make sure you discuss any questions you have with your health care provider. Document Revised: 06/05/2020 Document Reviewed: 11/28/2019 [employer] Patient Education ?? 2020 [employer] acetaminophen and hydrocodone (a SEET a MIN oh fen and david droe KOE done) Hycet, Lorcet, [place], Verdrocet, Vicodin, Xodol, Zamicet What is the most important information I should know about acetaminophen and hydrocodone? MISUSE OF OPIOID MEDICINE CAN CAUSE ADDICTION, OVERDOSE, OR . Keep the medication in a place where others cannot get to it. Taking opioid medicine during may cause life-threatening withdrawal symptoms in the . Fatal side effects can occur if you use opioid medicine with alcohol, or with other drugs that cause drowsiness or slow your breathing. Stop taking this medicine and call your doctor right away if you have skin redness or a rash that spreads and causes blistering and peeling. What is acetaminophen and hydrocodone? Acetaminophen and hydrocodone is a combination medicine used to relieve moderate to severe pain. Acetaminophen and hydrocodone contains an opioid medicine, and may be habit-forming. Acetaminophen and hydrocodone may also be used for purposes not listed in this medication guide. What should I discuss with my healthcare provider before taking acetaminophen and hydrocodone? You should not use this medicine if you are allergic to acetaminophen or hydrocodone, or if you have: ?? severe asthma or breathing problems; or ?? a blockage in your stomach or intestines. Tell your doctor if you have ever had: ?? breathing problems, sleep apnea (breathing stops during sleep); ?? liver disease; ?? a drug or alcohol addiction; ?? kidney disease; ?? a head injury or seizures; ?? urination problems; or ?? problems with your thyroid, pancreas, or gallbladder. If you use opioid medicine while you are , your baby could become dependent on the drug. This can cause life-threatening withdrawal symptoms in the baby after it is born. Babies born dependent on opioids may need medical treatment for several weeks. Ask a doctor before using opioid medicine if you are . Tell your doctor if you notice severe drowsiness or slow breathing in the nursing baby. How should I take acetaminophen and hydrocodone? Follow all directions on your prescription label. Never take this medicine in larger amounts, or for longer than prescribed. An overdose can damage your liver or cause . Tell your doctor if you feel an increased urge to use more of this medicine. Never share this medicine with another person, especially someone with a history of drug abuse or addiction. MISUSE CAN CAUSE ADDICTION, OVERDOSE, OR . Keep the medicine in a place where others cannot get to it. Selling or giving away this medicine is against the law. Measure liquid medicine carefully. Use the dosing syringe provided, or use a medicine dose-measuring device (not a kitchen spoon). If you need surgery or medical tests, tell the doctor ahead of time that you are using this medicine. You should not stop using this medicine suddenly. Follow your doctor's instructions about tapering your dose. Store at room temperature away from moisture and heat. Keep track of your medicine. You should be aware if anyone is using it improperly or without a prescription. Do not keep leftover opioid medication. Just one dose can cause in someone using this medicine accidentally or improperly. Ask your pharmacist where to locate a drug take-back disposal program. If there is no take-back program, flush the unused medicine down the toilet. What happens if I miss a dose? Since this medicine is used for pain, you are not likely to miss a dose. Skip any missed dose if it is almost time for your next dose. Do not use two doses at one time. What happens if I overdose? Seek emergency medical attention or call the Poison Help line at . An overdose of this medicine can be fatal, especially in a child or other person using the medicine without a prescription. Overdose symptoms may include nausea, vomiting, sweating, severe drowsiness, pinpoint pupils, slow breathing, or no breathing. Your doctor may recommend you get naloxone (a medicine to reverse an opioid overdose) and keep it with you at all times. A person caring for you can give the naloxone if you stop breathing or don't wake up. Your caregiver must still get emergency medical help and may need to perform CPR (cardiopulmonary resuscitation) on you while waiting for help to arrive. Anyone can buy naloxone from a pharmacy or local health department. Make sure any person caring for you knows where you keep naloxone and how to use it. What should I avoid while taking acetaminophen and hydrocodone? Avoid driving or operating machinery until you know how this medicine will affect you. Dizziness or drowsiness can cause falls, accidents, or severe injuries. Do not drink alcohol. Dangerous side effects or could occur. Ask a doctor or pharmacist before using any other medicine that may contain acetaminophen (sometimes abbreviated as APAP). Taking certain medications together can lead to a fatal overdose. What are the possible side effects of acetaminophen and hydrocodone? Get emergency medical help if you have signs of an allergic reaction: hives; difficulty breathing; swelling of your face, lips, tongue, or throat. Opioid medicine can slow or stop your breathing, and may occur. A person caring for you should give naloxone and/or seek emergency medical attention if you have slow breathing with long pauses, blue colored lips, or if you are hard to wake up. In rare cases, acetaminophen may cause a severe skin reaction that can be fatal. This could occur even if you have taken acetaminophen in the past and had no reaction. Stop taking this medicine and call your doctor right away if you have skin redness or a rash that spreads and causes blistering and peeling. Call your doctor at once if you have: ?? noisy breathing, sighing, shallow breathing, breathing that stops; ?? a light-headed feeling, like you might pass out; ?? liver problems--nausea, upper stomach pain, tiredness, loss of appetite, dark urine, urbano-colored stools, jaundice (yellowing of the skin or eyes); ?? low cortisol levels-- nausea, vomiting, loss of appetite, dizziness, worsening tiredness or weakness; o ?? high levels of serotonin in the body--agitation, hallucinations, fever, sweating, shivering, fast heart rate, muscle stiffness, twitching, loss of coordination, nausea, vomiting, diarrhea. Serious breathing problems may be more likely in older adults and in those who are debilitated or have wasting syndrome or chronic breathing disorders. Common side effects include: ?? dizziness, drowsiness, feeling tired; ?? nausea, vomiting, stomach pain; ?? constipation; or ?? headache. This is not a complete list of side effects and others may occur. Call your doctor for medical advice about side effects. You may report side effects to FDA at 4-269-UNQ-8435. What other drugs will affect acetaminophen and hydrocodone? You may have breathing problems or withdrawal symptoms if you start or stop taking certain other medicines. Tell your doctor if you also use an antibiotic, antifungal medication, heart or blood pressure medication, seizure medication, or medicine to treat HIV or hepatitis C. Opioid medication can interact with many other drugs and cause dangerous side effects or . Be sure your doctor knows if you also use: ?? cold or allergy medicines, bronchodilator asthma/COPD medication, or a diuretic ('water pill'); ?? medicines for motion sickness, irritable bowel syndrome, or overactive bladder; ?? other opioids--opioid pain medicine or prescription cough medicine; ?? a sedative like Valium--diazepam, alprazolam, lorazepam, Xanax, Klonopin, Versed, and others; ?? drugs that make you sleepy or slow your breathing--a sleeping pill, muscle relaxer, medicine to treat mood disorders or mental illness; ?? drugs that affect serotonin levels in your body--a stimulant, or medicine for depression, Parkinson's disease, migraine headaches, serious infections, or nausea and vomiting. This list is not complete. Other drugs may affect acetaminophen and hydrocodone, including prescription and pzib-mke-wypkavr medicines, vitamins, and herbal products. Not all possible interactions are listed here. Where can I get more information? Your doctor or pharmacist can provide more information about acetaminophen and hydrocodone. Remember, keep this and all other medicines out of the reach of children, never share your medicines with others, and use this medication only for the indication prescribed. Every effort has been made to ensure that the information provided by [employer]. ('[employer]') is accurate, up-to-date, and complete, but no guarantee is made to that effect. Drug information contained herein may be time sensitive. [employer] information has been compiled for use by healthcare practitioners and consumers in the [place] and therefore [employer] does not warrant that uses outside of the [place] are appropriate, unless specifically indicated otherwise. [employer] drug information does not endorse drugs, diagnose patients or recommend therapy. [employer] drug information is an informational resource designed to assist licensed healthcare practitioners in caring for their patients and/or to serve consumers viewing this service as a supplement to, and not a substitute for, the expertise, skill, knowledge and judgment of healthcare practitioners. The absence of a warning for a given drug or drug combination in no way should be construed to indicate that the drug or drug combination is safe, effective or appropriate for any given patient. [employer] does not assume any responsibility for any aspect of healthcare administered with the aid of information [employer] provides. The information contained herein is not intended to cover all possible uses, directions, precautions, warnings, drug interactions, allergic reactions, or adverse effects. If you have questions about the drugs you are taking, check with your doctor, nurse or pharmacist. Copyright 7156-3317 [employer]. Version: 16.03. Revision Date: 03/24/2020. Emergency Awareness and Preventative Care STROKE is an EMERGENCY Every Minute Counts Act FAST and Check for these signs: FACE Does the face look uneven? ARM Does one arm drift down? SPEECH Does their speech sound strange? TIME Call at any sign of stroke Stroke Risk Factors Atrial Fibrillation (irregular heartbeat) Diabetes Family history of stroke Heart Disease Heavy alcohol use High Blood Pressure High Cholesterol Physical inactivity and obesity Smoking Cigarette Smoking The facts are clear, cigarette smoking will shorten your life. Smoking can cause many illnesses along the way. As a healthcare provider, we recommend that you stop smoking. Assistance with quitting is available by contacting 0-922-PCEYNOW. This is a free resource providing counseling, support, and referral. Or you may contact your personal physician. [employer] Suicide Prevention Lifeline: The National Suicide Prevention Lifeline is a national network of local crisis centers that provides free and confidential emotional support to people in suicidal crisis or emotional distress 24 hours a day, 7 days a week. Don't Wait! Stop a Heart Attack Before it Starts What is a heart attack? A heart attack is damage or to a part of the heart from severely decreased or lack of blood flow to the heart. Over time, arteries can become narrow from the buildup of fat and cholesterol, which is called plaque. The plaque can rupture causing a blood clot to form. When the blood clot forms, the artery can become severely narrowed or completely blocked, causing a heart attack. Heart attack is the leading cause of in the [place]. 85% of muscle damage occurs within the first 2 hours. Delay in the recognition of heart attack symptoms increases the chances of . Know the early symptoms of a heart attack: Nausea Feeling of fullness in chest Jaw Pain Pain that travels down one or both arms Fatigue/being tired Anxiety Back Pain Chest pressure, squeezing, or discomfort Shortness of breath Sweating, or a cold sweat Feeling of impending doom There are unusual signs of a heart attack, too! Women, the elderly, and diabetics may present with atypical symptoms: Fainting/dizziness Weakness Confusion Risk Factors for a Heart Attack Some heart disease risk factors, such as age and family history, cannot be changed. Others, like smoking and lack of exercise, can be changed. Smoking High Cholesterol High Blood Pressure Family History Obesity Age Gender (Males are at higher risk) Lack of Exercise Diabetes Diet Stress Excessive Alcohol Intake If you or someone you know is experiencing the signs and symptoms of a heart attack, DON???T DELAY. Call immediately and seek help. If someone collapses, perform CPR! Do not attempt to drive if you are having symptoms of heart attack. Hands-Only CPR Why Hands-Only CPR? Hands-Only CPR has been shown to be as effective as conventional CPR for cardiac arrests that occur outside of a hospital. Survival depends on immediately receiving CPR from someone nearby. How do you perform Hands-Only CPR? There are two easy steps: Call if you see a teen or adult collapse Push hard and fast in the center of the chest at a beat of 100 beats per minute. Save a life! 4 WAYS TO GET AHEAD OF SEPSIS SEPSIS is a MEDICAL EMERGENCY. Time matters! Infections put you and your family at risk for a life-threatening condition called sepsis. Sepsis is the body's extreme response to an infection. It is life-threatening, and without timely treatment, sepsis can rapidly lead to tissue damage, organ failure, and . Sepsis happens when an infection you already have-in your skin, lungs, urinary tract or somewhere else-triggers a chain reaction throughout your body. 1 PREVENT INFECTIONS Take good care of chronic conditions. Talk to your doctor about getting the recommended vaccines. 2 PRACTICE GOOD HYGIENE Wash your hands frequently. Keep cuts or open sores clean and covered until they are healed. 3 KNOW THE SYMPTOMS Confusion or disorientation Shortness of breath High heart rate Fever, shivering, or feeling very cold Extreme pain or discomfort Clammy or sweaty skin 4 ACT FAST Get medical care IMMEDIATELY if you suspect sepsis or if you have an infection that is not getting better or is getting worse. To learn more about sepsis and how to prevent infections, visit www.cdc.gov/sepsis. Test Results Laboratory or Other Results This Visit (last charted value for your 05/13/2021 visit) Hematology 05/11/2021 11:28 AM WBC: 5.6 K/uL -- Normal range between ( 3.6 and 9.5 ) RBC: 4.00 Million/uL -- Normal range between ( 4.20 and 5.70 ) Hct: 35.8 % -- Normal range between ( 40.1 and 51.0 ) Hgb: 11.3 g/dL -- Normal range between ( 13.5 and 17.3 ) Platelet Count: 311 K/uL -- Normal range between ( 163 and 369 ) MCH: 28.3 pg -- Normal range between ( 25.6 and 32.2 ) MCHC: 31.6 Gram/dL -- Normal range between ( 32.2 and 36.5 ) MCV: 89.5 fL -- Normal range between ( 79.0 and 94.8 ) Slide Review: No Eos %: 2.2 % -- Normal range between ( 0.0 and 7.0 ) [place] #: 0.45 K/uL -- Normal range between ( 0.16 and 1.00 ) Eos #: 0.12 x10(3)/uL -- Normal range between ( 0.00 and 0.80 ) [place] %: 8.1 % -- Normal range between ( 3.0 and 9.0 ) Baso %: 1.8 % -- Normal range between ( 0.0 and 1.5 ) Baso #: 0.10 x10(3)/uL -- Normal range between ( 0.00 and 0.20 ) RDW: 12.8 % -- Normal range between ( 11.7 and 14.9 ) Neut %: 59.3 % -- Normal range between ( 34.0 and 71.0 ) Neut #: 3.30 K/uL -- Normal range between ( 1.56 and 6.13 ) Lymph %: 28.2 % -- Normal range between ( 19.3 and 53.1 ) Lymph #: 1.57 x10(3)/uL -- Normal range between ( 1.00 and 3.90 ) MPV: 10.8 fL -- Normal range between ( 9.4 and 12.4 ) IG#: 0.02 x10(3)/uL -- Normal range between ( 0.00 and 0.05 ) IG%: 0.40 % -- Normal range between ( 0.00 and 0.60 ) Microbiology 05/11/2021 12:45 PM SARS-CoV-2 (COVID19 PCR): Negative General Chemistry 05/13/2021 9:10 AM Glucose POC2: 200 mg/dL -- Normal range between ( 70 and 110 ) Device Comment 1: Device Comment 1 05/11/2021 11:28 AM Creatinine Level: 1.20 mg/dL -- Normal range between ( 0.70 and 1.30 ) Sodium Level: 140 mmol/L -- Normal range between ( 136 and 146 ) Potassium Level: 4.3 mmol/L -- Normal range between ( 3.5 and 5.1 ) Chloride Level: 106 mmol/L -- Normal range between ( 102 and 112 ) Carbon Dioxide Level: 27 mmol/L -- Normal range between ( 21 and 32 ) Anion Gap: 11 -- Normal range between ( 9 and 20 ) Bun/Creatinine: 12.5 -- Normal range between ( 8.0 and 20.0 ) Calcium Level: 9.2 mg/dL -- Normal range between ( 8.4 and 10.1 ) eGFR : >60 mL/min/1.73m2 eGFR NonAfrican: >60 mL/min/1.73m2 Glucose Level: 167 mg/dL -- Normal range between ( 74 and 106 ) Blood Urea Nitrogen: 15 mg/dL -- Normal range between ( 7 and 22 ) Diagnostic Radiology 05/11/2021 12:20 PM CR Chest 2 Vws: CR Chest 2 Vws Patient Name:TERA COREA I have received this information and was given the opportunity to ask questions. Patient/Wide Area Network Systems Administrator Name: Patient/Wide Area Network Systems Administrator Signature: Relationship to Patient: Clinician/Hospital Wide Area Network Systems Administrator Signature: Date: documented in this encounter Plan of Treatment Not on file documented as of this encounter Visit Diagnoses Not on filedocumented in this encounter
--- OUTSIDE RECORDS SUMMARY | 2024-08-06 13:46 | XMS_ITS | Encounter Summary ---
Author Organization [employer] Address [address] [place] [id number] Care Team Providers Care Telephone Lines Repairer Name Role Phone Unavailable Primary Care Provider Unavailabl e Encounter Details Date Type Department Care Team (Late st Contact Info) Description 05/11/2021 Transcribed Document [facility] [place] [facility] [place] [address] ProviderDario MD [address] [place] [id number] Social History Tobacco Use Types Packs/Day Years Used Date Smoking Tobacco: Never Assessed Sex and Gender Information Value Date Recorded Sex Assigned at Male 08/17/2021 8:14 PM CDT Legal Sex Male 8:14 PM CDT Gender Identity Male 08/17/2021 8:14 PM CDT Sexual Orientation Not on file documented as of this encounter Miscellaneous Notes * Cerner Conversion Note - Historical Provider, - 05/11/2021 12:05 PM CDT Patient: TERA COREA Age: 60 years Sex: Male : 1960 Associated Diagnoses: None Author: COMERMORGAN APRN Chief Complaint pleasant 60 yo male here for L hallux IP joint fusion with Dr. Williamson. pt has had L great toe pain for 1 year, now has developed an ulcer on that toe. Review of Systems Constitutional: obese. Eye: glasses. Ear/Nose/Mouth/Throat: Negative. Respiratory: Negative. Cardiovascular: Negative. Gastrointestinal: Negative. Genitourinary: Negative. Hematology/Lymphatics: Negative. Endocrine: Negative. Immunologic: Negative. Musculoskeletal: Joint pain, L great toe, drop foot L foot. Integumentary: ulcer L great toe. Neurologic: Negative. Psychiatric: Negative. All other systems are negative Health Status Allergies: Allergic Reactions (Selected) Severity Not Documented Bactrim- Rash. , Allergies (1) Active Reaction Bactrim Rash Current medications: (Selected) Documented Medications Documented NovoLIN 70/30: 10 Units, SubCutaneous, At Bedtime, 0 Refill(s) NovoLIN 70/30: 40 Units, SubCutaneous, QAM, 0 Refill(s) Suboxone: 8 mg, SubLINgual, Daily, 0 Refill(s) Wellbutrin SR 150 mg/12 hours oral tablet, extended release: 1 Tab, Oral, At Bedtime, 0 Refill(s) atorvastatin 10 mg oral tablet: 1 Tab, Oral, At Bedtime, 0 Refill(s) metoclopramide 10 mg oral tablet: 1 Tab, Oral, At Bedtime, 0 Refill(s) , Home Medications (6) Active atorvastatin 10 mg oral tablet 10 mg = 1 Tab, Oral, At Bedtime metoclopramide 10 mg oral tablet 10 mg = 1 Tab, Oral, At Bedtime NovoLIN 70/30 40 Units, SubCutaneous, QAM NovoLIN 70/30 10 Units, SubCutaneous, At Bedtime Suboxone 8 mg, SubLINgual, Daily Wellbutrin SR 150 mg/12 hours oral tablet, extended release 150 mg = 1 Tab, Oral, At Bedtime , No qualifying data available Problem list: All Problems Renal insufficiency / SNOMED CT 829610711 / Confirmed Peripheral neuropathy / SNOMED CT 9380405357 / Confirmed Hyperlipidemia / SNOMED CT 90797782 / Confirmed Gastroparesis / SNOMED CT 600886283 / Confirmed Drop foot, left / SNOMED CT 131073713 / Confirmed Diabetes / SNOMED CT 665225829 / Confirmed Back pain / SNOMED CT 0139325674 / Confirmed At risk for sleep apnea / IMO [id number] / Confirmed Anemia / SNOMED CT 638893731 / Confirmed , Active Problems (9) Anemia At risk for sleep apnea Back pain Diabetes Drop foot, left Gastroparesis Hyperlipidemia Peripheral neuropathy Renal insufficiency Histories Past Medical History: No active or resolved past medical history items have been selected or recorded. Family History: No family history items have been selected or recorded. Procedure history: gallbladder. lumbar discectomy. left ankle surgery. Physical Examination VS/Measurements Vital Signs/Vital Measures 05/11/2021 11:35 EDT Blood Pressure Location Arm, right upper Blood Pressure Source Non-Invasive BP Device Systolic Blood Pressure 140 mmHg Diastolic Blood Pressure 87 mmHg Temperature Source Temporal artery scanning Temperature Mode Fahrenheit Temperature, Fahrenheit 97.2 Deg F Clinical Temperature, C 36.2 Deg C Peripheral Pulse Rate 79 bpm Respiratory Rate 16 Breaths/Min Oxygen Saturation 99 % Oxygen Therapy Mode Room air , No qualifying data available , Measurements from flowsheet : Measurements 05/11/2021 11:35 EDT Height Source Measured Height Entry Format [place] Height/Length, MAORI (ft) 5 ft Height/Length MAORI 10 Inch CLINICALHEIGHT 177.8 cm [place] Body Weight 72 kg Weight Source Standing scale Weight Entry Format [place] Weight [place] lb 260.2 lb CLINICALWEIGHT 118.27 kg Body Surface Area (BSA) 2.34 m2 Body Mass Index 37.4 kg/m2 HI General: Alert and oriented, No acute distress, obese. Eye: Extraocular movements are intact, glasses. HENT: Normocephalic, Normal hearing. Respiratory: Lungs are clear to auscultation, Respirations are non-labored. Cardiovascular: Normal rate, Regular rhythm, No murmur, No gallop, No edema. Musculoskeletal: painful ROM L great toe, LLE weakness, L foot drop, wears special brace shoes. . Integumentary: Warm, Dry, ulcer L great toe POA. Neurologic: Alert, Oriented. Psychiatric: Cooperative, Appropriate mood & affect. Review / Management Results review: Labs (Last four charted values) WBC 5.6 (MAY 11) HB L 11.3 (MAY 11) HCT L 35.8 (MAY 11) Plt 311 (MAY 11) Na 140 (MAY 11) K 4.3 (MAY 11) Cl 106 (MAY 11) CO2 27 (MAY 11) BUN 15 (MAY 11) Cr 1.20 (MAY 11) Glu R H 167 (MAY 11) Ca 9.2 (MAY 11) . Impression and Plan Diagnosis 1. L great toe pain/ulcer 2. anemia 3. back pain 4. DM 5. L foot drop 6. gastroparesis 7. HLD 8. neuropathy 9. renal insufficiency. Condition: Stable. pt to proceed with surgery, DC home same day. documented in this encounter Plan of Treatment Not on file documented as of this encounter Visit Diagnoses Not on filedocumented in this encounter
--- OUTSIDE RECORDS SUMMARY | 2024-08-06 13:46 | XMS_ITS | Encounter Summary ---
Author Organization [employer] Address [address] [place] [address] Care Team Providers Care Road Production General Manager Name Role Phone Unavailable Primary Care Provider Unavailabl e Encounter Details Date Type Department Care Team (Late st Contact Info) Description 05/13/2021 Transcribed Document [facility] [place] [facility] [place] [address] ProviderDario MD [address] [place] [address] Social History Tobacco Use Types Packs/Day [...] Historical Provider, - 05/13/2021 7:45 AM CDT [facility] Main OR IntraOp Summary Primary Physician: HERMINIO NORIEGA, MELVIN-POD Finalized Date/Time: 07/28/21 15:09:50 Pt. Name: TERA COREA /Sex: 1960 Male Med Rec #: [id number] Physician: HERMINIO NORIEGA, DPM-POD Financial #: [id number] Pt. Type: O Room/Bed: 18 Admit/Disch: 05/13/21 06:31:00 - 05/13/21 09:45:00 Institution: [facility] IntraOp Additional Time Out Entry 1 Additional Time Out Regional Nerve Block Procedure Additional TO Pause 05/13/21 07:35:00 Time All Activity Yes Suspended Unless Life Threatening Emergency Surgical Team Yes Verbally Confirm Patient, Site, Procedure and Consent Last Modified By: Marychuy Henry, Surgery RN Lead 05/13/21 08:07:52 [facility] IntraOp Case Attendance Entry 1 Entry 2 Entry 3 Case Attendee HERMINIO NORIEGA, DPM-POD CHRISTINA CROSS RHYNE, HEATHER, MD-ANS BUSINESS SERVICES MANAGER-ANS Role Performed Surgeon/Proceduralist, RABBIT DRESSER/Nurse B2B Account Executive Anesthesiologist of First Record Time In 05/13/21 07:30:00 05/13/21 07:30:00 05/13/21 07:30:00 Time Out 05/13/21 08:56:00 05/13/21 08:56:00 05/13/21 08:56:00 Procedure Toe Arthrodesis(Left) Toe Arthrodesis(Left) Toe Arthrodesis(Left) Other Attendee Superficial Wound Closed By: Last Modified By: Marychuy Henry, Marychuy Henry, Marychuy Henry, Surgery RN Lead Surgery RN Lead Surgery RN Lead 05/13/21 08:56:41 05/13/21 08:56:41 05/13/21 08:56:41 Entry 4 Entry 5 Entry 6 Case Attendee Marychuy Henry Zhurko, Timofey, Scrub OTHER, ATTENDEE #1 Surgery RN Lead Tech Role Performed Manager Government, First Scrub, First Vendor Time In 05/13/21 07:30:00 05/13/21 07:30:00 05/13/21 07:30:00 Time Out 05/13/21 08:56:00 05/13/21 08:56:00 05/13/21 08:56:00 Procedure Toe Arthrodesis(Left) Toe Arthrodesis(Left) Toe Arthrodesis(Left) Other Attendee [facility] Superficial Wound Closed By: Last Modified By: Marychuy Henry Moore, Kimberly A, Marychuy Henry, Surgery RN Lead Surgery RN Lead Surgery RN Lead 05/13/21 08:56:41 05/13/21 08:56:41 05/13/21 08:06:56 [facility] IntraOp Case Attendance Audit 05/13/21 08:56:41 Bulk Plant Agent: [id number] Modifier: [id number] <+> Time Out 1 <*> Procedure Toe Arthrodesis(Left) 2 <+> Time Out 2 <*> Procedure Toe Arthrodesis(Left) 3 <+> Time Out 3 <*> Procedure Toe Arthrodesis(Left) 4 <+> Time Out 4 <*> Procedure Toe Arthrodesis(Left) 5 <+> Time Out 5 <*> Procedure Toe Arthrodesis(Left) 6 <+> Time Out 6 <*> Procedure Toe Arthrodesis(Left) 05/13/21 08:22:43 Bulk Plant Agent: [id number] Modifier: [id number] <+> 1 Time In <+> 1 Procedure 2 <+> Time In 2 <*> Procedure Toe Arthrodesis(Left) 3 <+> Time In 3 <*> Procedure Toe Arthrodesis(Left) 4 <+> Time In 4 <*> Procedure Toe Arthrodesis(Left) 5 <+> Time In 5 <*> Procedure Toe Arthrodesis(Left) 6 <+> Time In 6 <*> Procedure Toe Arthrodesis(Left) [facility] IntraOp Case Times Entry 1 Patient In Room Time 05/13/21 07:30:00 Out Room Time 05/13/21 08:56:00 Anesthesia Start Time 05/13/21 07:30:00 Stop Time 05/13/21 08:56:00 Surgery / Procedure Times Start Time 05/13/21 07:45:00 Stop Time 05/13/21 08:53:00 Last Modified By: Marychuy Henry, Surgery RN Lead 05/13/21 08:55:51 [facility] IntraOp Case Times Audit 05/13/21 08:55:51 Bulk Plant Agent: [id number] Modifier: [id number] <+> 1 Out Room Time <+> 1 Stop Time <+> 1 Stop Time [facility] IntraOp Cautery Entry 1 ESU Identification Cautery Type Monopolar ESU ID Number [id number] ID Type Hospital Number Cautery Settings Cut Setting 30 Coag Setting 30 ESU Grounding Pad Ground Pad Type Adult Grounding Pad Site Right thigh Grounding Pad Marychuy Henry, Applied By Surgery RN Lead Grounding Pad Site Warm, dry and intact Skin Condition Before Cautery Grounding Pad Site Unchanged Skin Condition After Cautery Last Modified By: Marychuy Henry, Surgery RN Lead 05/13/21 08:08:26 [facility] IntraOp Communication Entry 1 Communication To Family/Significant other Comment START Communication By Marychuy Henry Surgery RN Lead Date and Time 05/13/21 08:02:00 Last Modified By: Marychuy Henry Surgery RN Lead 05/13/21 08:08:36 [facility] IntraOp Counts Verification Entry 1 Procedure Toe Arthrodesis(Left) Count Info Count Type Sponge, Sharps, Miscellaneous Counts Verification Baseline/pre-procedure Sequence Count Results Not Applicable Counts Performed By Count Performed By Karen Ortiz Scrub (Scrub) Tech Count Performed By Marychuy Henry, (RN) Surgery RN Lead Last Modified By: Marychuy Henry Surgery RN Lead 05/13/21 08:08:48 [facility] IntraOp Counts Final Entry 1 Procedure Toe Arthrodesis(Left) Final Count Info Count Type Sponge, Sharps, Miscellaneous Counts Verification Skin Closure/end of Sequence procedure Count Results Correct, surgeon notified Counts Performed By Count Performed By Karen Ortiz Scrub (Scrub) Tech Count Performed By Marychuy Henry (RN) Surgery RN Lead Last Modified By: Marychuy Henry Surgery RN Lead 05/13/21 08:08:57 [facility] IntraOp Counts Final Audit 05/13/21 08:55:40 Bulk Plant Agent: [id number] Modifier: [id number] <*> Procedure Toe Arthrodesis(Left) 1 <+> Count Performed By (Scrub) [facility] IntraOp Departure from OR Entry 1 Integumentary Assessment Integumentary WDL Assessment WDL Transfer/Handoff Transfer to PACU Phase II Handoff Method Bedside/Face to face, Phone call, Online nursing summary Post-op Transport Stretcher/rney Via Patient Transport Marychuy Henry, Accompanied by Surgery RN Lead Last Modified By: Marychuy Henry, Surgery RN Lead 05/13/21 08:09:22 [facility] IntraOp Dressing and Packing Entry 1 Type Dressing Location LEFT FOOT Wound Dressing Item 4x4's, Jai, Kerlix/Michelle, ABD dressing pad Applied By HERMINIO NORIEGA, DPM-POD Last Modified By: Marychuy Henry Surgery RN Lead 05/13/21 08:09:32 [facility] IntraOp Fire Risk Assessment Entry 1 Fire Info Surgical Site or 0- No Incision Above the Xyphoid Open O2 Source 1- Yes (Mask or Cannula) Available Ignition 1- Yes (ESU, Laser, Light Source) Fire Risk 2 Assessment Score Fire Score Fire Risk Yes Assessment Complete Fire Risk Marychuy Henry, Assessment Verified Surgery RN Lead By Fire Risk 05/13/21 07:30:00 Assessment Verified Date/Time Fire Risk Standard Fire Yes Safety Precautions Followed Last Modified By: Marychuy Henry, Surgery RN Lead 05/13/21 08:07:07 [facility] IntraOp Fire Risk Assessment Audit 05/13/21 08:09:49 Bulk Plant Agent: [id number] Modifier: [id number] <+> 1 Fire Risk Assessment Verified Date/Time [facility] IntraOp General Case Ambulance Officer 1 Case Information OR OR 04 [facility] Case Level 1 Room Verified Yes Wound Class 2 - Clean-Contaminated Specialty Podiatry Anesthesia Type MAC ASA Class 3 Diagnosis Preop Diagnosis CONTRACTED LEFT HALLUX MALLEUS Postop Diagnosis SEE MD POST OP NOTES Wound Class Definitions Last Modified By: Marychuy Henry, Surgery RN Lead 05/13/21 08:13:11 [facility] IntraOp General Case Data Audit 05/13/21 08:24:25 Bulk Plant Agent: [id number] Modifier: [id number] <*> Wound Class 1 - Clean [facility] IntraOp Implant Log Entry 1 Entry 2 Entry 3 Type Implant (Synthetic) Implant (Synthetic) Implant (Synthetic) Implant Log Implant Type Hardware Hardware Hardware Tissue Implant Type Implant STAPLE FUSEFORCE KT STAPLE FUSEFORCE PRM-TISS VIAFLOW AMB Identification [id number] Description Implant Quantity 1 1 1 Implant Site LEFT HALLUX LEFT HALLUX LEFT HALLUX Implant Identification Model Number Implant Identification Serial Number Implant [id number] Identification Lot Number Implant Faye Med Grp:Yunier Faye Med Grp:Yunier Faye Med Grp:Yunier Villanueva Med Tech Med Tech Med Tech Returned Goods Inspector Name: Implant [id number] Identification Catalog Number Implant Size Implant Has an Yes Yes Yes Expiration Date Implant Expiration 03/18/26 04/29/26 01/26/25 Date Wasted Yes Radioactive Material Time Implanted Tissue Implant Continue for Tissue Implant Documentation Tissue Identification Number Graft Prep Per Returned Goods Inspector Instructions: Tissue Preparation Method: Reconstitution Solution: Reconstitution Solution Lot Number Reconstitution Solution Expiration Date: Thawing Solution Thawing Solution Lot Number Thawing Solution Expiration Date Preparation Materials, Other Preparation Materials, Other Lot Number Preparation Materials, Other Expiration Date Tissue Prepared/Processed By Returned Goods Inspector Paperwork Completed Implant Type Comment EXPLANTED Last Modified By: Marychuy Henry, Marychuy Henry, Marychuy Henry, Surgery RN Lead Surgery RN Lead Surgery RN Lead 05/13/21 08:13:22 05/13/21 08:27:14 05/13/21 09:43:11 [facility] IntraOp Implant Log Audit 05/13/21 09:43:11 Bulk Plant Agent: [id number] Modifier: [id number] <*> Implant Identification Description KT STAPLE FUSEFORCE [id number] <+> Wasted 2 <+> Implant Type Comment <+> 3 Implant Identification Description <+> 3 Implant Identification Lot Number <+> 3 Implant Identification Returned Goods Inspector Name: <+> 3 Implant Expiration Date <+> 3 Implant Site <+> 3 Implant Quantity <+> 3 Implant Identification Catalog Number <+> 3 Implant Type <+> 3 Implant Has an Expiration Date <+> 3 Type 05/13/21 08:27:14 Bulk Plant Agent: [id number] Modifier: [id number] <+> 1 Implant Identification Description <+> 1 Implant Identification Lot Number <+> 1 Implant Identification Returned Goods Inspector Name: <+> 1 Implant Expiration Date <+> 1 Implant Identification Catalog Number <+> 1 Implant Has an Expiration Date <+> 2 Implant Identification Description <+> 2 Implant Identification Lot Number <+> 2 Implant Identification Returned Goods Inspector Name: <+> 2 Implant Expiration Date <+> 2 Implant Site <+> 2 Implant Quantity <+> 2 Implant Identification Catalog Number <+> 2 Implant Type <+> 2 Implant Has an Expiration Date <+> 2 Type [facility] IntraOp Intraoperative Assessment Entry 1 Handoff Method Bedside/Face to face, Online nursing summary Valid History / Yes Physical in Chart Preoperative Yes Checklist Reviewed/Evaluated Allergies Reviewed Yes Patient is Latex No Sensitive Isolation Not applicable Precautions Noted Skin Assessment Yes Verified Present Upon IVs Arrival to OR Prosthetic/Assistive Other Devices Intraoperative FREESTYLE RIGHT UPPER Assessment Comment ARM Last Modified By: Marychuy Henry, Surgery RN Lead 05/13/21 08:07:54 [facility] IntraOp Intraoperative Assessment Audit 05/13/21 08:13:51 Bulk Plant Agent: [id number] Modifier: [id number] <+> 1 Isolation Precautions Noted <+> 1 Prosthetic/Assistive Devices <+> 1 Intraoperative Assessment Comment [facility] IntraOp Intraoperative Equipment Entry 1 Type Equipment Equipment Equipment Randolph Suction System ID Number NONE Setting ON Intraop Monitoring Antiembolic Devices Scopes Photo/Video Documentation Photo No Video No Last Modified By: Marychuy Henry, Surgery RN Lead 05/13/21 08:14:28 [facility] IntraOp Medication Admin Entry 1 Entry 2 Medication/Irrigant lidocaine 1% 50ml vial Bupivicaine/Marcaine - [id number] 0.5% 30ml - [id number] Combo Med List 1 - Combo Med Time Administered Route of LOCAL-MIXED 1:1 WITH LOCAL-MIXED 1:1 WITH Administration BUPIVICAINE 0.5% LIDOCAINE 1% Dose Dose Unit of Measure ml ml Volume Administered By HERMINIO NORIEGA, DPM-POD HERMINIO NORIEGA, DPM-POD Procedure Irrigation Irrigant Volume In Irrigant Volume Out Last Modified By: Marychuy Henry, Marychuy Henry, Surgery RN Lead Surgery RN Lead 05/13/21 08:15:24 05/13/21 08:15:24 [facility] IntraOp Patient Positioning Entry 1 Procedure Toe Arthrodesis(Left) Body Position Supine Left Arm Position Resting at side Right Arm Position Resting at side Left Leg Position Uncrossed, parallel Right Leg Position Uncrossed, parallel Feet Uncrossed Yes Pressure Points Yes Checked Positioning Devices Pillows, Safety Strap, Thighs, Wedge Device Position PODIATRY WEDGE Positioned By MIGUELINA IBARRA MD-ANS, CHRISTINA CROSS APRN-ANS, Marychuy Henry, Surgery RN Lead, HERMINIO NORIEGA, DPM-POD Position Verified Positioning Yes Verified by Anesthesia Positioning Yes Verified by Surgeon Last Modified By: Marychuy Henry, Surgery RN Lead 05/13/21 08:21:22 [facility] IntraOp Sign In Entry 1 Patient, Site, Yes Procedure Identified Surgical Consent Yes Confirmed Relevant Surgical Yes Documents Available Surgical Site Yes Marked by person performing procedure Anesthesia Machine Yes Check Completed Medication Checks Yes Completed Allergies Yes Airway Difficult Yes Airway/Aspiration Risk Difficult Yes Airway/Aspiration Intervention Equipment Available Blood Loss Risk No Blood Loss No Intervention Equipment Prepared and Ready Blood Identifiers Not applicable Verified Per Policy Hypothermia Risk Yes Warming Measures Yes Taken Last Modified By: Marychuy Henry Surgery RN Lead 05/13/21 08:21:46 [facility] IntraOp Sign In Audit 05/13/21 08:21:52 Bulk Plant Agent: [id number] Modifier: [id number] 1 <*> Blood Loss Risk Yes [facility] IntraOp Sign Out Entry 1 RN Confirmation Surgical Yes Procedure(s) Identified Instrument, Sponge Yes and Sharps Counts Correct/Documented Equipment Problems N/A Documented Specimen Labeled Yes Correctly Urinary Catheter N/A Documented in IView Wound Yes classification reviewed, verified and updated post case in both the General Case Data and Procedure segments [place] Patient Yes Recovery Concerns Reviewed with Anesthesia Provider, Surgeon and RN [place] Patient Yes Management Concerns Reviewed with Anesthesia Provider, Surgeon and RN Safety Checklist Yes Elements Complete? RN Sign Out Marychuy Henry Signature Surgery RN Lead RN Sign Out 05/13/21 08:53:00 Signature Date/Time Plan of Care Outcome - Fire Risk OUTCOME STATEMENT: Goal met Patient is free from injury related to surgical fire Plan of Care Outcome - Pt Positioning OUTCOME STATEMENT: Goal met Absence of signs and symptoms of positioning injury. Plan of Care Outcome - Skin Prep OUTCOME STATEMENT: Goal met Intraoperative care is consistent with measures to prevent infection Plan of Care Outcome - Xray/Images OUTCOME STATEMENT: Goal met Absence of observable signs or symptoms of radiation injury Plan of Care Outcome - Counts OUTCOME STATEMENT: Goal met Absence of signs and symptoms of injury related to extraneous objects Last Modified By: Marychuy Henry Surgery RN Lead 05/13/21 08:22:07 [facility] IntraOp Sign Out Audit 05/13/21 08:56:01 Bulk Plant Agent: [id number] Modifier: [id number] <+> 1 RN Sign Out Signature Date/Time 05/13/21 08:22:07 Bulk Plant Agent: [id number] Modifier: [id number] <+> 1 Urinary Catheter Documented in IView <+> 1 Wound classification reviewed, verified and updated post case in both the General Case Data and Procedure segments [facility] IntraOp Skin Prep Entry 1 Procedure Toe Arthrodesis(Left) Prescribed Yes Pre-Surgical Prep Completed Prep Area LEFT FOOT FROM ANKLE TO TOES CIRCUMFRENTIALLY Intraop Prep Integumentary WDL Assessment WDL Prep Agents Chlorhexadine gluconate Prep by Marychuy Henry, Surgery RN Lead Hair Removal Methods No hair removal performed Last Modified By: Marychuy Henry Surgery RN Lead 05/13/21 08:22:28 [facility] IntraOp Surgical Procedures Entry 1 Procedure Toe Arthrodesis Modifiers Left Additional LEFT HALLUX Procedure INTERPHALAGEAL JOINT Description FUSION Primary Procedure Yes Primary Surgeon HERMINIO NORIEGA DPChano-POD Start 05/13/21 07:45:00 Stop 05/13/21 08:53:00 Anesthesia Type [facility] Specialty Podiatry Wound Class 2 - Clean-Contaminated Last Modified By: Marychuy Henry Surgery RN Lead 05/13/21 08:22:42 [facility] IntraOp Surgical Procedures Audit 05/13/21 08:56:02 Bulk Plant Agent: [id number] Modifier: [id number] <+> 1 Stop 05/13/21 08:24:19 Bulk Plant Agent: [id number] Modifier: [id number] 1 <*> Procedure Toe Arthrodesis 1 <*> Wound Class 1 - Clean [facility] IntraOp Temp Regulation Devices Entry 1 Temp Regulation Temperature THERMOREGULATION Regulation Comment MEASURES MONITORED AND ADJUSTED BY ANESTHESIA Last Modified By: Marychuy Henry, Surgery RN Lead 05/13/21 08:22:59 [facility] IntraOP Time Out Entry 1 Procedure to be Toe Arthrodesis(Left) Performed Time Out Time Out Pause Time 05/13/21 07:42:00 All activity Yes suspended (unless life threatening emergency) Team Verbally Correct patient Confirms Information identity, Correct side and site are marked, Consent form is present and accurate, Agreement on the procedure to be done, Correct patient position, Confirm antibiotics have been administered, Confirm the skin prep has dried, Confirm prosthesis/implant/devic e is present, Performed in location of procedure after prepped/draped, Reconcile problems if responses among team members differ Antibiotic Yes Prophylaxis Administered Or In Progress Within the Last 60 Minutes Beta Caroline N/A Administered Venous N/A Thromboembolism Prophylaxis Required Anticipated Critical Events Surgeon None expected Anesthesia Provider None expected Nursing Assures Sterility of instruments, Implant Availability Essential Imaging N/A Labeled and Displayed Last Modified By: Marychuy Henry, Surgery RN Lead 05/13/21 08:25:04 [facility] IntraOp Tourniquet Entry 1 Type Pneumatic Serial/Unit Number [id number] Setting 250 mmHg Pheumatic Yes Tourniquet Checked Per Protocol Size 18 inches Placement Ankle, left Skin Protection - Yes Padded Under Cuff Applied By Marychuy Henry, Surgery RN Lead Removed By HERMINIO NORIEGA DPM-POD Times Start Time 05/13/21 07:44:00 Stop Time 05/13/21 08:52:00 Last Modified By: Marychuy Henry, Surgery RN Lead 05/13/21 08:56:56 [facility] IntraOp Tourniquet Audit 05/13/21 08:56:56 Bulk Plant Agent: [id number] Modifier: [id number] <+> 1 Stop Time Case Comments <None> Finalized By: SANTIAGO SLAUGHTER Document Signatures Signed By: Marychuy Henry, Surgery RN Lead 05/13/21 09:43 SANTIAGO SLAUGHTER 05/14/21 14:27 SANTIAGO SLAUGHTER 07/28/21 15:09 Unfinalized History Date/Time Username Reason for Unfinalizing Freetext Reason for Unfinalizing 05/14/21 14:25 WATTSDR Correct Billing 07/28/21 15:09 WATTSDR Correct Billing documented in this encounter Plan of Treatment Not on file documented as of this encounter Visit Diagnoses Not on filedocumented in this encounter
--- OUTSIDE RECORDS SUMMARY | 2024-08-06 13:46 | XMS_ITS | Encounter Summary ---
Author Organization [facility] Address [address] [place] [address] Care Team Providers Care Health Physics Technician Name Role Phone Mal Song MD Primary Care Provider [phone] Kwesi Faye MD Primary Care Provider Reason for Visit * Reason Comments Med Refill Encounter Details Date Type Department Care Team (Late st Contact Info) Description 06/29/2022 Refill [facility] Endocrinology [address] [place] [address] Lu Cameron S, SWING TENDER [address] [address] Social History Tobacco Use Types Packs/Day Years Used Date Smoking Tobacco: Never Smokeless Tobacco: Never Alcohol Use Standard Drinks/Week Comments Not Currently 0 (1 standard drink = 0.6 oz pur e alcohol) Sex and Gender Information Value Date Recorded Sex Assigned at Not on file Legal Sex Male 7:35 PM EDT Gender Identity Not on file Sexual Orientation Not on file documented as of this encounter Miscellaneous Notes * Telephone Encounter - Modesta Mccartney - 06/29/2022 12:47 PM EDT Per protocol, 1 medication(s), Lantus, has been approved for 60 day supply with 0 refill(s) to [facility] pharmacy. documented in this encounter Plan of Treatment Upcoming Encounters Date Type Department Care Team (Late st Contact Info) Description 09/05/2024 2:40 PM EDT Office Visit [facility] [address] [place] [phone] Lu Cameron, SWING TENDER [address] [facility] [address] [place] [address] documented as of this encounter Visit Diagnoses Not on filedocumented in this encounter Additional Health Concerns Assessment Noted Time A fall risk assessment has been complete d for the patient 11/11/2021 8:36 AM EDT documented as of this encounter Care Teams Health Physics Technician Relationship Specialty Start Date End Date Mal Song MD [address] [place] [address] PCP - General 07/03/20 04/30/23 Kwesi aFye MD [address] [place] [address] PCP - General Family Medicine 05/01/23 documented as of this encounter
--- OUTSIDE RECORDS SUMMARY | 2024-08-06 13:46 | XMS_ITS | Encounter Summary ---
Author Organization [facility] Address [address] [place] [address] Care Team Providers Care Transportation Maintenance Operator Name Role Phone Kwesi Faye MD Primary Care Provider [phone] Reason for Visit * Reason Onset Date Comments Med Refill 07/01/2024 Encounter Details Date Type Department Care Team (Late st Contact Info) Description 07/01/2024 Refill [facility] Endocrinology [address] [place] [address] Lu Cameron S, LARD RENDERER [address] [facility] [address] [place] [address] Social History Tobacco Use Types Packs/Day [...] encounter Miscellaneous Notes * Telephone Encounter - June Mckeon PharmD - 07/01/2024 2:19 PM EDT Refill request does not meet protocol. Sending to clinic for review. Additional info: Medication not on protocol. documented in this encounter Plan of Treatment Upcoming Encounters Date Type Department Care Team (Late st Contact Info) Description 09/05/2024 2:40 PM EDT Office Visit [facility] [address] [place] [phone] Lu Cameron, LARD RENDERER [address] [place] [address] documented as of this encounter Visit Diagnoses Not on filedocumented in this encounter Additional Health Concerns Assessment Noted Time A fall risk assessment has been complete d for the patient 01/31/2023 1:12 PM EST A Body Mass Index follow-up plan has been documented for the patient 05/29/2024 3:51 PM EDT documented as of this encounter Care Teams Transportation Maintenance Operator Relationship Specialty Start Date End Date Kwesi Faye MD [address] [place] [address] PCP - General Family Medicine 05/01/23 documented as of this encounter
--- OUTSIDE RECORDS SUMMARY | 2024-08-06 13:46 | XMS_ITS | Encounter Summary ---
Author Organization [employer] Address [address] [place] [address] Care Team Providers Care Materials Handler Name Role Phone Unavailable Primary Care Provider Unavailabl e Encounter Details Date Type Department Care Team (Late st Contact Info) Description 07/20/2021 Transcribed Document [facility] [place] [facility] [address] ProviderDario MD [address] [place] [address] Social History Tobacco Use Types Packs/Day Years Used Date Smoking Tobacco: Never Assessed Sex and Gender Information Value Date Recorded Sex Assigned at Male 08/17/2021 8:14 PM CDT Legal Sex Male 8:14 PM CDT Gender Identity Male 08/17/2021 8:14 PM CDT Sexual Orientation Not on file documented as of this encounter Miscellaneous Notes * Cerner Conversion Note - Historical ProviderMD - 07/20/2021 3:01 PM CDT DATE OF PROCEDURE: 05/13/2021 SURGEON: Sandoval Williamson DPM PREOPERATIVE DIAGNOSIS: 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 POSTOPERATIVE DIAGNOSES: 1. 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 2. Interphalangeal joint sesamoid identified during the procedure. 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 PROCEDURE IN DETAIL: The patient was wheeled into the operating room and left on the gurney in supine position. After IV sedation was achieved, local block was obtained about the patient's left foot in a Galaviz block fashion with 1:1 mixture of 1% Xylocaine plain and 0.5% Marcaine plain. The foot was then scrubbed, prepped, and draped in usual aseptic manner. Esmarch bandage used to exsanguinate the patient's left foot and the tourniquet 250 mmHg inflated above the malleoli. The time-out had been done before incision was made and incision was made on the dorsal aspect of the left hallux with two converging semielliptical horizontal incisions over the hallux interphalangeal joint, resected the fusiform skin wedge, dissected down. Tenotomy-capsulotomy was performed at the hallux interphalangeal joint. I identified the head of the proximal phalanx, resected with a sagittal bone saw as well as the cartilaginous base of the distal phalanx and underneath the flexor tendon noted a sesamoid bone. This was also resected from the interdigital space. Irrigated this with copious amounts of sterile normal saline. There was no active pus. There were no bony erosions noted during the dissection or the resection of the bones. Decision was then to fuse with a combination of a K-wire and an 8 mm staple fixation across the osteotomy site. The K-wire was driven through the bone and out the distal aspect of the hallux, which will be removed at a later date in the office. An 8 mm staple screw will stay internally unless there is a complication. Also, injected with Bioflow. The patient tolerated the procedure and anesthesia well. I then closed the wound with a combination of 2-0 Vicryl and 3-0 Vicryl and 3-0 nylon. Dressed the wound with Xeroform gauze, 4x4s, ABD pad, Kerlix, and an outer wrap. The tourniquet was deflated. Prompt hyperemic response noted to all digits of the patient's left foot upon release. He was wheeled back to postop to go home today. His main restrictions are to limit activity predominantly preserved for bathroom privileges at this point due to allow him to heal. He does have a risk of the hallux amputation if there are any complications with this. He understood that beforehand and other contractures of other toes might alter due to the fact of the hallux being in a different position and the patient is aware of that as well. /[id number] MELVIN Rose/TUCKER / KRISTINE / MODL /[id number] documented in this encounter Plan of Treatment Not on file documented as of this encounter Visit Diagnoses Not on filedocumented in this encounter
--- OUTSIDE RECORDS SUMMARY | 2024-08-06 13:46 | XMS_ITS | Encounter Summary ---
Author Organization [employer] Address [address] [place] [address] Care Team Providers Care Boom Stick Worker Name Role Phone Unavailable Primary Care Provider Unavailabl e Encounter Details Date Type Department Care Team (Late st Contact Info) Description 05/13/2021 Transcribed Document [facility] [place] [facility] [place] [address] ProviderDario MD [address] [place] [address] Social History Tobacco Use Types Packs/Day Years Used Date Smoking Tobacco: Never Assessed Sex and Gender Information Value Date Recorded Sex Assigned at Male 08/17/2021 8:14 PM CDT Legal Sex Male 8:14 PM CDT Gender Identity Male 08/17/2021 8:14 PM CDT Sexual Orientation Not on file documented as of this encounter Miscellaneous Notes * Cerner Conversion Note - Historical ProviderMD - 05/13/2021 9:02 AM CDT Patient: TERA COREA Age: 60 Years Sex: Male : 1960 *Operation Toe Arthrodesis, Left Left foot hallux IPJ arthrodesis with K-wire and 8mm staple fixation; Viaflow injection; Excision of IPJ Sesamoid intraoperatively Anesthesia Type MIGUELINA ELIAS MD-ANS (Anesthesiologist of Record) Indication for Surgery post surgery changes *Preoperative Diagnosis contracture hallux; chronic non-infected ulceration *Postoperative Diagnosis Same as preoperative DX; as well as IPJ Sesamoid *Surgeon(s) Primary Surgeon HERMINIO NORIEGA, DPM-POD (Surgeon/Proceduralist, First) *Estimated Blood Loss negligible *Findings expected; along with IPJ sesamoid *Specimen(s) negative Complications negative Date of Service Date/Time of Service SN - Proc - Start Time: 05/13/21 07:45:00 (05/13/21 08:22:42) documented in this encounter Plan of Treatment Not on file documented as of this encounter Visit Diagnoses Not on filedocumented in this encounter
--- OUTSIDE RECORDS SUMMARY | 2024-08-06 13:46 | XMS_ITS | Encounter Summary ---
Author Organization [employer] Address [address] [place] [address] Care Team Providers Care Aerial Gunner Superintendent Name Role Phone Unavailable Primary Care Provider Unavailabl e Encounter Details Date Type Department Care Team (Late st Contact Info) Description 05/11/2021 Transcribed Document [facility] [place] [facility] [place] [address] ProviderDario MD [address] [place] [address] Social History Tobacco Use Types Packs/Day Years Used Date Smoking Tobacco: Never Assessed Sex and Gender Information Value Date Recorded Sex Assigned at Male 08/17/2021 8:14 PM CDT Legal Sex Male 8:14 PM CDT Gender Identity Male 08/17/2021 8:14 PM CDT Sexual Orientation Not on file documented as of this encounter Miscellaneous Notes * Cerner Conversion Note - Historical ProviderMD - 05/11/2021 11:35 AM CDT PAT Adult Entered On: 05/11/2021 11:36 EDT Performed On: 05/11/2021 11:35 EDT by RAVI SIERRA RN Vital Measurements Temperature Source : Temporal artery scanning Temperature Mode : Fahrenheit Temperature, Fahrenheit : 97.2 Deg F Clinical Temperature, C : 36.2 Deg C Peripheral Pulse Rate : 79 bpm Respiratory Rate : 16 Breaths/Min Blood Pressure Location : Arm, right upper Blood Pressure Source : Non-Invasive BP Device Systolic Blood Pressure : 140 mmHg Diastolic Blood Pressure : 87 mmHg Oxygen Saturation : 99 % Oxygen Therapy Mode : Room air RAVI SIERRA RN - 05/11/2021 11:35 EDT Pain Assessment Pain Scale Goal : 4 RAVI SIERRA RN - 05/11/2021 11:52 EDT Height and Weight, Clinical Dosing Height Source : Measured Height Entry Format : [place] Height, Feet : 5 ft(Converted to: 152 cm, 60 Inch) Height, Inches : 10 Inch(Converted to: 0 ft 10 Inch, 25.40 cm) Clinical Height : 177.8 cm Weight Source : Standing scale Weight Entry Format : [place] Clinical Dosing Weight : 118.27 kg Weight, Pounds : 260.2 lb Body Surface Area (BSA) : 2.34 m2 Body Mass Index : 37.4 kg/m2 (HI) [place] Body Weight : 72 kg RAVI SIERRA RN - 05/11/2021 11:35 EDT Health Histories Smoking Status : Never (less than 100 in lifetime; none in last 30 days) Smokeless Tobacco Status : Never RAVI SIERRA RN - 05/11/2021 11:52 EDT Social History (As Of: 05/11/2021 12:05:29 EDT) Tobacco: Never (less than 100 in lifetime) Smoking Status. Never Smokeless Tobacco Status. (Last Updated: 05/11/2021 11:41:47 EDT by RAVI SIERRA RN) Alcohol: Alcohol Use History Yes. Use in Last 12 Months: Yes. Alcohol Use Frequency Rarely. (Last Updated: 05/11/2021 11:41:56 EDT by RAVI SIERRA RN) Substance Abuse: Drug Use Hx: Yes. Use in Last 12 Months: No. Oxycodone Recreational Drug Type. Comments: 05/11/2021 11:44 - RAVI SIERRA RN: quit in 2019 - is on Suboxone now - had been able to take pain pills with past surgeries (Last Updated: 05/11/2021 11:44:07 EDT by RAVI SIERRA RN) Infectious Disease History Infectious Disease Risk Screening Grid Cough < 2 wks of unknown origin : NO Cough > 2 weeks : NO Blood in Sputum : NO Fever or self-reported Fever : NO Rash of unknown origin : NO Headache : NO Stiff neck : NO Night Sweats : NO Unexplained Weight Loss : NO Diarrhea (3 episode per day) : NO MIKE DELUCA - 05/13/2021 6:13 EDT INF Disease TB Screening Calc : 0 MIKE DELUCA - 05/13/2021 6:13 EDT Does patient have symptoms of COVID-19? : No RAVI SIERRA RN - 05/11/2021 11:52 EDT Has the Patient Been Tested for COVID-19 in the last 14 days? : Yes, Patient stated results Negative MIKE DELUCA - 05/13/2021 6:13 EDT Where and When was COVID19 testing completed? : [facility] on 05/11/2021 Does the Patient state known exposure to a COVID-19 positive case in the last 14 days? : No Patient Vaccinated for COVID-19 : Not vaccinated Does Patient want a COVID-19 Vaccine? : Yes Physical contact outside [place] in the last 30 days : No Hospitalized in Foreign Country : No Infectious Disease History : Chicken pox/Shingles INF Disease Recent Travel Calc : 0 RAVI SIERRA RN - 05/11/2021 11:52 EDT COVID19 PreProcedure Screening Is this an Emergent or Add on Procedure? : No Date PreProcedure COVID-19 test known? : Yes Date of PreProcedure COVID-19 : 05/11/2021 EDT Has patient been isolated since the test : No Exposed to COVID19 symptoms since test? : No MIKE DELUCA 05/13/2021 6:13 EDT Anesthesia/Transfusion History Blood Transfusion Acceptable to Patient : Yes MIKE DELUCA 05/13/2021 6:13 EDT Family History of Anesthesia Reaction : No prior transfusion(s) Transfusion History : Prior anesthesia without reaction Family History of Anesthesia Reaction : None RAVI SIERRA RN - 05/11/2021 11:52 EDT Functional Assessment Functional ADL Evaluation Index EBN Bathing : Independent (2) Dressing : Independent (2) Toileting : Independent (2) Transferring Bed or Chair : Independent (2) Continence : Independent (2) Feeding : Independent (2) RAVI SIERRA RN - 05/11/2021 11:52 EDT ADL Index Score : 12 RAVI SIERRA RN - 05/11/2021 11:52 EDT Advance Directive Patient has Advance Directive *Q : No, patient refuses Advance Directive information RAVI SIERRA RN - 05/11/2021 11:52 EDT Spiritual/Cultural Needs Any Spiritual/Cultural Needs or Requests : Yes Spiritual/Cultural Needs Comment : preop prayer, surgery 04/15/2021, in at 0530 Spiritual/Cultural Needs Comment : preop prayer, surgery 04/15/2021, in at 0530 RAVI SIERRA RN - 05/11/2021 11:52 EDT [place] Suicide Severity Rating Scale (C-SSRS) CSSRS Past Month Wish to be : No CSSRS Past Month Suicidal Thoughts : No CSSRS Lifetime Suicide Behavior : No Suicide Severity Rating Score : 0 Suicide Severity Rating : No Additional Care Required at this time RAVI SIERRA RN - 05/11/2021 11:52 EDT Psychosocial History Do You Have a History of the Following? : Patient denies history SAMREGGIEMIKE - 05/13/2021 6:13 EDT Currently in Unsafe Situation : No RAVI SIERRA RN - 05/11/2021 11:52 EDT Teaching/Learning Assessment Individuals Taught : Patient Readiness to Learn : Cooperative Readiness to Learn : Explanation, Printed materials RAVI SIERRA RN - 05/11/2021 11:52 EDT Education Topics, Periop Preadmission Perioperative Education Grid Arrival Time/Place : Verbalizes understanding Infection Control : Verbalizes understanding IV's : Verbalizes understanding NPO Status/Directions : Verbalizes understanding Pain Management : Verbalizes understanding Preprocedure Preparations : Verbalizes understanding Preprocedure Tests/Labs : Verbalizes understanding Remove Body Piercings : Verbalizes understanding Responsible Adult : Verbalizes understanding Take/Hold Medications Pre-Procedure : Verbalizes understanding RAVI SIERRA RN - 05/11/2021 11:52 EDT Responsible Adult Contact Information : Belgica Corea, spouse, RAVI SIERRA RN - 05/11/2021 11:52 EDT General Info Arrived From : Home Mode of Arrival on Unit : Ambulatory Legal Guardian : Spouse Support Person/Patient Director Of Cardiac Rehabilitation : Yes Support Person/Pt Rep Name : Belg[place] Corea, spouse Support Person/Pt Rep Contact Information : [phone] Want Family/Rep/Phys Notified of Admit : No Emergency Contact #1 : Belgicaomer Corea Emergency Contact #1 Emergency Contact #1 Relationship : spouse Emergency Contact #2 : . Emergency Contact #2 Phone Number : . Emergency Contact #2 Relationship : . Information Obtained From : Patient Primary Language : Uzbek Preferred Communication Mode : Verbal Communication Barrier : None Mechanic Driver Needed : No Objects to Sharing Info w Family : No RAVI SIERRA RN - 05/11/2021 11:52 EDT Eyad Scale Eyad Sensory Perception : Slightly limited (Comment: peripheral neuropathy [RAVI SIERRA RN - 05/11/2021 11:52 EDT] ) Eyda Moisture : Occasionally moist Eyad Activity : Walks occasionally Eyad Mobility : Slightly limited Eyad Nutrition : Adequate Eyad Friction and Shear : Potential problem Eyad Score : 17 RAVI SIERRA RN - 05/11/2021 11:52 EDT Sleep Apnea Risk Assmt Hx of Obstructive Sleep Apnea Diagnosis : No Snore Loudly : Yes Tired, Fatigued, or Sleepy During Day : Yes Observed Stopping Breathing During Sleep : No Have/Are Being Treated for Hypertension : No BMI Greater Than 35 kg/m2 : Yes Age over 50 Years Old : Yes Neck Circumference Greater Than 40 cm : Yes Gender Male : Yes STOP-BANG Sleep Apnea Risk Level Score : 6 RAVI SIERRA RN - 05/11/2021 11:52 EDT documented in this encounter Plan of Treatment Not on file documented as of this encounter Visit Diagnoses Not on filedocumented in this encounter
== END 2024-08-06 23:59 | disposition home or self-care (01) ==
LOC: RAD 13:44
PROVIDERS: PCP Family Medicine; Visit Provider Podiatrist
DX: M19.072 Primary osteoarthritis, left ankle and foot (principal); M21.42 Flat foot [pes planus] (acquired), left foot
CPT/HCPCS: 73610; 73630

== ENCOUNTER 2024-08-15 14:35 | Outpatient (CLI) | payer MEDICARE, SELFPAY ==
--- OUTSIDE RECORDS SUMMARY | 2024-08-15 14:37 | XMS_ITS | Encounter Summary ---
Author Organization [facility] Address [address] [place] [address] Care Team Providers Care Sock Mender Name Role Phone Mal Song MD Primary Care Provider [phone] Kwesi Faye MD Primary Care Provider [phone] Reason for Visit * Reason Comments Med Refill Encounter Details Date Type Department Care Team (Late st Contact Info) Description 06/29/2022 Refill [facility] Endocrinology [address] [place] [address] Lu Cameron S, MOSS PICKER [address] [address] Social History Tobacco Use Types [...] 60 day supply with 0 refill(s) to [facility] pharmacy. documented in this encounter Plan of Treatment Upcoming Encounters Date Type Department Care Team (Late st Contact Info) Description 09/05/2024 2:40 PM EDT Office Visit [facility] [address] [place] [phone] Lu Cameron, MOSS PICKER [address] [facility] [address] [place] [address] documented as of this encounter Visit Diagnoses Not on filedocumented in this encounter Additional Health Concerns Assessment Noted Time A fall risk assessment has been complete d for the patient 11/11/2021 8:36 AM EDT documented as of this encounter Care Teams Sock Mender Relationship Specialty Start Date End Date Mal Song MD [address] [place] [address] PCP - General 07/03/20 04/30/23 Kwesi Faye MD [address] [place] [address] PCP - General Family Medicine 05/01/23 documented as of this encounter
--- OUTSIDE RECORDS SUMMARY | 2024-08-15 14:37 | XMS_ITS | Encounter Summary ---
Author Organization [employer] Address [address] [place] [address] Care Team Providers Care Metal Roofer Name Role Phone Unavailable Primary Care Provider Unavailabl e Encounter Details Date Type Department Care Team (Late st Contact Info) Description 05/13/2021 Transcribed Document [facility] [place] Family Medicine [facility] [place] [address] ProviderDario MD [address] [place] [address] Social History Tobacco Use Types Packs/Day [...] children on your own. Medicines ??? Take qcxw-zva-ilalghb and prescription medicines only as told by [...] keep your urine pale yellow. ? Take erqp-uxi-yxopvik or prescription medicines. ? Eat foods that [...] added (diluted fruit juice). ? Eat bland, dkgr-ei-ezkywk foods in small amounts as you are [...] and water are not available, use hand zipper setter chainstitch. ? Change your dressing as told by [...] drink clear fluids slowly and eat bland, ruta-sw-ztpfug foods in small amounts. ??? Ask your health care provider what activities are safe for you. This information is not intended to replace advice given to you by your health care provider. Make sure you discuss any questions you have with your health care provider. Document Revised: 06/05/2020 Document Reviewed: 11/28/2019 [employer] Patient Education ? 2020 [employer]. documented in this encounter Plan of Treatment Not on file documented as of this encounter Visit Diagnoses Not on filedocumented in this encounter
--- OUTSIDE RECORDS SUMMARY | 2024-08-15 14:37 | XMS_ITS | Encounter Summary ---
Author Organization [employer] Address [address] [place] [address] Care Team Providers Care Judicial Administrative Assistant Name Role Phone Unavailable Primary Care Provider Unavailabl e Encounter Details Date Type Department Care Team (Late st Contact Info) Description 05/13/[address] [facility] [place] [facility] [place] [address] ProviderDario MD [address] [place] [address] Social History Tobacco Use Types Packs/Day [...] Historical Provider, - 05/13/2021 7:45 AM CDT [facility] Main OR PostOp Summary Primary Physician: HERMINIO NORIGEA DPM-POD Finalized Date/Time: 05/14/21 14:25:34 Pt. Name: TERA COREA /Sex: 1960 Male Med Rec #: [id number] Physician: HERMINIO NORIEGA, DPM-POD Financial #: [id number] Pt. Type: O Room/Bed: 18 Admit/Disch: 05/13/21 06:31:00 - 05/13/21 09:45:00 Institution: [facility] Main OR PostOp Case Times Entry 1 In PACU II 05/13/21 09:00:00 Ready for PACU II 05/13/21 09:45:00 Discharge Discharge from PACU 05/13/21 09:45:00 II Last Modified By: SINCERE ELLINGTON RN 05/13/21 09:48:42 [facility] Main OR PostOp Case Times Audit 05/13/21 09:48:42 Business Education Instructor: AMALIA Modifier: ROYBEDWARD <+> 1 Ready for [...]
--- OUTSIDE RECORDS SUMMARY | 2024-08-15 14:37 | XMS_ITS | Encounter Summary ---
Author Organization [facility] Address [address] [place] [address] Care Team Providers Care Tray Line Worker Name Role Phone Kwesi Faye MD Primary Care Provider [phone] Reason for Visit * Reason Onset Date Comments Med Refill 07/01/2024 Encounter Details Date Type Department Care Team (Late st Contact Info) Description 07/01/2024 Refill [facility] Endocrinology [address] [place] [address] Lu Cameron S, CANDY DIPPER [address] [facility] [address] [place] [address] Social History Tobacco Use Types [...] [facility] [address] [place] [phone] Lu Cameron, CANDY DIPPER [address] [place] [address] documented as of this encounter Visit Diagnoses Not on filedocumented in this encounter Additional Health Concerns Assessment Noted Time A fall risk assessment has been complete d for the patient 01/31/2023 1:12 PM EST A Body Mass Index follow-up plan has been documented for the patient 05/29/2024 3:51 PM EDT documented as of this encounter Care Teams Tray Line Worker Relationship Specialty Start Date End Date Kwesi Faye MD [address] [place] [address] PCP - General Family Medicine 05/01/23 documented as of this encounter
--- OUTSIDE RECORDS SUMMARY | 2024-08-15 14:37 | XMS_ITS | Encounter Summary ---
Author Organization [employer] Address [address] [place] [address] Care Team Providers Care Outdoor Studies Professor Name Role Phone Unavailable Primary Care Provider Unavailabl e Encounter Details Date Type Department Care Team (Late st Contact Info) Description 05/11/2021 Transcribed Document [facility] Family Medicine [facility] [place] [address] ProviderDario MD [address] [place] [address] Social History Tobacco Use Types Packs/Day [...] All Problems Renal insufficiency / SNOMED CT 023236751 / Confirmed Peripheral neuropathy / SNOMED CT 5571091210 / Confirmed Hyperlipidemia / SNOMED CT 19510877 / Confirmed Gastroparesis / SNOMED CT 390479946 / Confirmed Drop foot, left / SNOMED CT 824269361 / Confirmed Diabetes / SNOMED CT 443682622 / Confirmed Back pain / SNOMED CT 3726268723 / Confirmed At risk for sleep apnea / IMO 28172073 / Confirmed Anemia / SNOMED CT 304027539 / Confirmed , Active Problems (9) Anemia [...] EDT Height Source Measured Height Entry Format [place] Height/Length, ARMENIAN (ft) 5 ft Height/Length ARMENIAN 10 Inch CLINICALHEIGHT 177.8 cm [place] Body Weight 72 kg Weight Source Standing scale Weight Entry Format [place] Weight Cymro lb 260.2 lb CLINICALWEIGHT 118.27 kg Body [...]
--- OUTSIDE RECORDS SUMMARY | 2024-08-15 14:37 | XMS_ITS | Encounter Summary ---
Author Organization [employer] Address [address] [place] [address] Care Team Providers Care Professor Of Public Administration Name Role Phone Unavailable Primary Care Provider Unavailabl e Encounter Details Date Type Department Care Team (Late st Contact Info) Description 05/13/2021 Transcribed Document [facility] [place] [facility] [place] [address] ProviderDario MD [address] [place] [address] Social History Tobacco Use Types Packs/Day [...] Historical Provider, - 05/13/2021 7:45 AM CDT [facility] Main OR IntraOp Summary Primary Physician: HERMINIO NORIEGA, MELVIN-POD Finalized Date/Time: 07/28/21 15:09:50 Pt. Name: TERA COREA /Sex: 1960 Male Med Rec #: [id number] Physician: HERMINIO NORIEGA, DPM-POD Financial #: [id number] Pt. Type: O Room/Bed: 18 Admit/Disch: 05/13/21 06:31:00 - 05/13/21 09:45:00 Institution: [facility] IntraOp Additional Time Out Entry 1 Additional Time Out Regional Nerve Block Procedure Additional TO Pause 05/13/21 07:35:00 Time All Activity Yes Suspended Unless Life Threatening Emergency Surgical Team Yes Verbally Confirm Patient, Site, Procedure and Consent Last Modified By: Marychuy Henry, Surgery RN Lead 05/13/21 08:07:52 [facility] IntraOp Case Attendance Entry 1 Entry 2 Entry 3 Case Attendee HERMINIO NORIEGA, DPM-POD CHRISTINA CROSS RHYNE, HEATHER, MD-ANS AUTOMOTIVE WORKER-ANS Role Performed Surgeon/Proceduralist, BUDGET SPECIALIST/Nurse Photoresist Contact Printer Anesthesiologist of First Record Time In 05/13/21 [...] #1 Surgery RN Lead Tech Role Performed Student Affairs Vice President, First Scrub, First Vendor Time In 05/13/21 07:30:00 05/13/21 07:30:00 05/13/21 07:30:00 Time Out 05/13/21 08:56:00 05/13/21 08:56:00 05/13/21 08:56:00 Procedure Toe Arthrodesis(Left) Toe Arthrodesis(Left) Toe Arthrodesis(Left) Other Attendee YUNIER SOTO [facility] Superficial Wound Closed By: Last Modified By: Marychuy Henry Moore, Kimberly A, Marychuy Henry, Surgery RN Lead Surgery RN Lead Surgery RN Lead 05/13/21 08:56:41 05/13/21 08:56:41 05/13/21 08:06:56 [facility] IntraOp Case Attendance Audit 05/13/21 08:56:41 Cw Operator: [id number] Modifier: [id number] <+> Time Out 1 <*> Procedure Toe Arthrodesis(Left) 2 <+> Time Out 2 <*> Procedure Toe Arthrodesis(Left) 3 <+> Time Out 3 <*> Procedure Toe Arthrodesis(Left) 4 <+> Time Out 4 <*> Procedure Toe Arthrodesis(Left) 5 <+> Time Out 5 <*> Procedure Toe Arthrodesis(Left) 6 <+> Time Out 6 <*> Procedure Toe Arthrodesis(Left) 05/13/21 08:22:43 Cw Operator: [id number] Modifier: [id number] <+> 1 Time In <+> 1 Procedure 2 <+> Time In 2 <*> Procedure Toe Arthrodesis(Left) 3 <+> Time In 3 <*> Procedure Toe Arthrodesis(Left) 4 <+> Time In 4 <*> Procedure Toe Arthrodesis(Left) 5 <+> Time In 5 <*> Procedure Toe Arthrodesis(Left) 6 <+> Time In 6 <*> Procedure Toe Arthrodesis(Left) [facility] IntraOp Case Times Entry 1 Patient In Room Time 05/13/21 07:30:00 Out Room Time 05/13/21 08:56:00 Anesthesia Start Time 05/13/21 07:30:00 Stop Time 05/13/21 08:56:00 Surgery / Procedure Times Start Time 05/13/21 07:45:00 Stop Time 05/13/21 08:53:00 Last Modified By: Marychuy Henry, Surgery RN Lead 05/13/21 08:55:51 [facility] IntraOp Case Times Audit 05/13/21 08:55:51 Cw Operator: [id number] Modifier: [id number] <+> 1 Out Room Time <+> 1 Stop Time <+> 1 Stop Time [facility] IntraOp Cautery Entry 1 ESU Identification Cautery Type Monopolar ESU ID Number [id number] ID Type Hospital Number Cautery Settings Cut Setting 30 Coag Setting 30 ESU Grounding Pad Ground Pad Type Adult Grounding Pad Site Right thigh Grounding Pad Marychuy Henry, Applied By Surgery RN Lead Grounding Pad Site Warm, dry and intact Skin Condition Before Cautery Grounding Pad Site Unchanged Skin Condition After Cautery Last Modified By: Marychuy Henry, Surgery RN Lead 05/13/21 08:08:26 [facility] IntraOp Communication Entry 1 Communication To Family/Significant [...] Marychuy Henry Surgery RN Lead 05/13/21 08:08:48 [facility] IntraOp Counts Final Entry 1 Procedure Toe Arthrodesis(Left) Final Count Info Count Type Sponge, Sharps, Miscellaneous Counts Verification Skin Closure/end of Sequence procedure Count Results Correct, surgeon notified Counts Performed By Count Performed By Karen Ortiz Scrub (Scrub) Tech Count Performed By Marychuy Henry (RN) Surgery RN Lead Last Modified By: Marychuy Henry Surgery RN Lead 05/13/21 08:08:57 [facility] IntraOp Counts Final Audit 05/13/21 08:55:40 Cw Operator: [id number] Modifier: [id number] <*> Procedure Toe Arthrodesis(Left) 1 <+> Count Performed By (Scrub) [facility] IntraOp Departure from OR Entry 1 Integumentary Assessment Integumentary WDL Assessment WDL Transfer/Handoff Transfer to PACU Phase II Handoff Method Bedside/Face to face, Phone call, Online nursing summary Post-op Transport Stretcher/rney Via Patient Transport Marychuy Henry, Accompanied by Surgery RN Lead Last Modified By: Marychuy Henry, Surgery RN Lead 05/13/21 08:09:22 [facility] IntraOp Dressing and Packing Entry 1 Type Dressing Location LEFT FOOT Wound Dressing Item 4x4's, Jai, Kerlix/Michelle, ABD dressing pad Applied By HERMINIO NORIEGA, DPM-POD Last Modified By: Marychuy Henry Surgery RN Lead 05/13/21 08:09:32 [facility] IntraOp Fire Risk Assessment Entry 1 Fire [...] Marychuy Henry, Surgery RN Lead 05/13/21 08:07:07 [facility] IntraOp Fire Risk Assessment Audit 05/13/21 08:09:49 Cw Operator: [id number] Modifier: [id number] <+> 1 Fire Risk Assessment Verified Date/Time [facility] IntraOp General Case Director Medical Surgical 1 Case Information OR OR 04 [facility] Case Level 1 Room Verified Yes Wound Class 2 - Clean-Contaminated Specialty Podiatry Anesthesia Type MAC ASA Class 3 Diagnosis Preop Diagnosis CONTRACTED LEFT HALLUX MALLEUS Postop Diagnosis SEE MD POST OP NOTES Wound Class Definitions Last Modified By: Marychuy Henry, Surgery RN Lead 05/13/21 08:13:11 [facility] IntraOp General Case Data Audit 05/13/21 08:24:25 Cw Operator: [id number] Modifier: [id number] <*> Wound Class 1 - Clean [facility] IntraOp Implant Log Entry 1 Entry 2 Entry 3 Type Implant (Synthetic) Implant (Synthetic) Implant (Synthetic) Implant Log Implant Type Hardware Hardware Hardware Tissue Implant Type Implant STAPLE FUSEFORCE KT STAPLE FUSEFORCE PRM-TISS VIAFLOW AMB Identification [id number] Description Implant Quantity 1 1 1 Implant Site LEFT HALLUX LEFT HALLUX LEFT HALLUX Implant Identification Model Number Implant Identification Serial Number Implant [id number] Identification Lot Number Implant Faye Med Grp:Yunier Faye Med Grp:Yunier Faye Med Grp:Yunier Villanueva Med Tech Med Tech Med Tech Android Software Engineer Name: Implant [id number] Identification Catalog Number Implant Size Implant Has an Yes Yes Yes Expiration Date Implant Expiration 03/18/26 04/29/26 01/26/25 Date Wasted Yes Radioactive Material Time Implanted Tissue Implant Continue for Tissue Implant Documentation Tissue Identification Number Graft Prep Per Android Software Engineer Instructions: Tissue Preparation Method: Reconstitution Solution: Reconstitution Solution Lot Number Reconstitution Solution Expiration Date: Thawing Solution Thawing Solution Lot Number Thawing Solution Expiration Date Preparation Materials, Other Preparation Materials, Other Lot Number Preparation Materials, Other Expiration Date Tissue Prepared/Processed By Android Software Engineer Paperwork Completed Implant Type Comment EXPLANTED Last Modified By: Marychuy Henry, Marychuy Henry, Marychuy Henry, Surgery RN Lead Surgery RN Lead Surgery RN Lead 05/13/21 08:13:22 05/13/21 08:27:14 05/13/21 09:43:11 [facility] IntraOp Implant Log Audit 05/13/21 09:43:11 Cw Operator: [id number] Modifier: [id number] 2 <*> Implant Identification Description KT STAPLE FUSEFORCE [id number] 2 <+> Wasted 2 <+> Implant Type Comment <+> 3 Implant Identification Description <+> 3 Implant Identification Lot Number <+> 3 Implant Identification Android Software Engineer Name: <+> 3 Implant Expiration Date <+> 3 Implant Site <+> 3 Implant Quantity <+> 3 Implant Identification Catalog Number <+> 3 Implant Type <+> 3 Implant Has an Expiration Date <+> 3 Type 05/13/21 08:27:14 Cw Operator: [id number] Modifier: [id number] <+> 1 Implant Identification Description <+> 1 Implant Identification Lot Number <+> 1 Implant Identification Android Software Engineer Name: <+> 1 Implant Expiration Date <+> 1 Implant Identification Catalog Number <+> 1 Implant Has an Expiration Date <+> 2 Implant Identification Description <+> 2 Implant Identification Lot Number <+> 2 Implant Identification Android Software Engineer Name: <+> 2 Implant Expiration Date <+> 2 Implant Site <+> 2 Implant Quantity <+> 2 Implant Identification Catalog Number <+> 2 Implant Type <+> 2 Implant Has an Expiration Date <+> 2 Type [facility] IntraOp Intraoperative Assessment Entry 1 Handoff Method [...] Marychuy Henry, Surgery RN Lead 05/13/21 08:07:54 [facility] IntraOp Intraoperative Assessment Audit 05/13/21 08:13:51 Cw Operator: [id number] Modifier: [id number] <+> 1 Isolation Precautions Noted <+> 1 Prosthetic/Assistive Devices <+> 1 Intraoperative Assessment Comment [facility] IntraOp Intraoperative Equipment Entry 1 Type Equipment Equipment Equipment Randolph Suction System ID Number [id number] Setting ON Intraop Monitoring Antiembolic Devices Scopes Photo/Video Documentation Photo No Video No Last Modified By: Marychuy Henry, Surgery RN Lead 05/13/21 08:14:28 [facility] IntraOp Medication Admin Entry 1 Entry 2 Medication/Irrigant lidocaine 1% 50ml vial Bupivicaine/Marcaine - [id number] 0.5% 30ml - [id number] Combo Med List 1 - Combo Med Time Administered Route of LOCAL-MIXED 1:1 WITH LOCAL-MIXED 1:1 WITH Administration BUPIVICAINE 0.5% LIDOCAINE 1% Dose Dose Unit of Measure ml ml Volume Administered By HERMINIO NORIEGA, DPM-POD HERMINIO NORIEGA, DPM-POD Procedure Irrigation Irrigant Volume In Irrigant Volume Out Last Modified By: Marychuy Henry, Marychuy Henry, Surgery RN Lead Surgery RN Lead 05/13/21 08:15:24 05/13/21 08:15:24 [facility] IntraOp Patient Positioning Entry 1 Procedure Toe [...] Marychuy Henry, Surgery RN Lead 05/13/21 08:21:22 [facility] IntraOp Sign In Entry 1 Patient, Site, [...] Marychuy Henry Surgery RN Lead 05/13/21 08:21:46 [facility] IntraOp Sign In Audit 05/13/21 08:21:52 Cw Operator: [id number] Modifier: [id number] 1 <*> Blood Loss Risk Yes [facility] IntraOp Sign Out Entry 1 RN Confirmation [...] Marychuy Henry Surgery RN Lead 05/13/21 08:22:07 [facility] IntraOp Sign Out Audit 05/13/21 08:56:01 Cw Operator: [id number] Modifier: [id number] <+> 1 RN Sign Out Signature Date/Time 05/13/21 08:22:07 Cw Operator: [id number] Modifier: [id number] <+> 1 Urinary Catheter Documented in IView <+> 1 Wound classification reviewed, verified and updated post case in both the General Case Data and Procedure segments [facility] IntraOp Skin Prep Entry 1 Procedure Toe Arthrodesis(Left) Prescribed Yes Pre-Surgical Prep Completed Prep Area LEFT FOOT FROM ANKLE TO TOES CIRCUMFRENTIALLY Intraop Prep Integumentary WDL Assessment WDL Prep Agents Chlorhexadine gluconate Prep by Marychuy Henry, Surgery RN Lead Hair Removal Methods No hair removal performed Last Modified By: Marychuy Henry Surgery RN Lead 05/13/21 08:22:28 [facility] IntraOp Surgical Procedures Entry 1 Procedure Toe Arthrodesis Modifiers Left Additional LEFT HALLUX Procedure INTERPHALAGEAL JOINT Description FUSION Primary Procedure Yes Primary Surgeon HERMINIO NORIEGA DPChano-POD Start 05/13/21 07:45:00 Stop 05/13/21 08:53:00 Anesthesia Type [facility] Specialty Podiatry Wound Class 2 - Clean-Contaminated Last Modified By: Marychuy Henry Surgery RN Lead 05/13/21 08:22:42 [facility] IntraOp Surgical Procedures Audit 05/13/21 08:56:02 Cw Operator: [id number] Modifier: [id number] <+> 1 Stop 05/13/21 08:24:19 Cw Operator: [id number] Modifier: [id number] <*> Procedure Toe Arthrodesis 1 <*> Wound Class 1 - Clean [facility] IntraOp Temp Regulation Devices Entry 1 Temp Regulation Temperature THERMOREGULATION Regulation Comment MEASURES MONITORED AND ADJUSTED BY ANESTHESIA Last Modified By: Marychuy Henry, Surgery RN Lead 05/13/21 08:22:59 [facility] IntraOP Time Out Entry 1 Procedure to [...] Marychuy Henry, Surgery RN Lead 05/13/21 08:25:04 [facility] IntraOp Tourniquet Entry 1 Type Pneumatic Serial/Unit Number [id number] Setting 250 mmHg Pheumatic Yes Tourniquet Checked Per Protocol Size 18 inches Placement Ankle, left Skin Protection - Yes Padded Under Cuff Applied By Marychuy Henry, Surgery RN Lead Removed By HERMINIO NORIEGA DPM-POD Times Start Time 05/13/21 07:44:00 Stop Time 05/13/21 08:52:00 Last Modified By: Marychuy Henry, Surgery RN Lead 05/13/21 08:56:56 [facility] IntraOp Tourniquet Audit 05/13/21 08:56:56 Cw Operator: [id number] Modifier: [id number] <+> 1 Stop Time Case Comments <None> [...]
--- OUTSIDE RECORDS SUMMARY | 2024-08-15 14:37 | XMS_ITS | Encounter Summary ---
Author Organization [employer] Address [address] [place] [address] Care Team Providers Care Distance Education Director Name Role Phone Unavailable Primary Care Provider Unavailabl e Encounter Details Date Type Department Care Team (Late st Contact Info) Description 05/13/2021 Transcribed Document [facility] [place] [facility] [place] [address] ProviderDario MD [address] [place] [address] Social History Tobacco Use Types Packs/Day [...] Historical ProviderMD - 05/13/2021 9:27 AM CDT [facility] [place] [address] TERA COREA [...] When Within 2 to 3 days Where: [address] [place] [address]- [facility] (1) Medications What How Much When [...] children on your own. Medicines ??? Take iyjh-ukq-lwlxniy and prescription medicines only as told by [...] keep your urine pale yellow. ? Take gtpd-sxf-uuyfyzp or prescription medicines. ? Eat foods that [...] added (diluted fruit juice). ? Eat bland, xaed-af-wjhdyq foods in small amounts as you are [...] and water are not available, use hand dairy truck driver. ? Change your dressing as told by [...] drink clear fluids slowly and eat bland, mxeq-ed-ctoyvt foods in small amounts. ??? Ask your health care provider what activities are safe for you. This information is not intended to replace advice given to you by your health care provider. Make sure you discuss any questions you have with your health care provider. Document Revised: 06/05/2020 Document Reviewed: 11/28/2019 [employer] Patient Education ?? 2020 [employer] acetaminophen and hydrocodone (a SEET a MIN oh fen and david droe KOE done) Hycet, Lorcet, Holloway, Verdrocet, Vicodin, Xodol, Zamicet What is the [...] pain, tiredness, loss of appetite, dark urine, rubano-colored stools, jaundice (yellowing of the skin or [...] may report side effects to FDA at 9-647-ABP-4728. What other drugs will affect acetaminophen and [...] affect acetaminophen and hydrocodone, including prescription and zrvo-kmr-rnnlsln medicines, vitamins, and herbal products. Not all [...] to ensure that the information provided by [employer] ('[employer]') is accurate, up-to-date, and complete, but no guarantee is made to that effect. Drug information contained herein may be time sensitive. [employer] information has been compiled for use by healthcare practitioners and consumers in the [place] and therefore [employer] does not warrant that uses outside of the [place] are appropriate, unless specifically indicated otherwise. [employer] drug information does not endorse drugs, diagnose patients or recommend therapy. [employer] drug information is an informational resource designed [...] effective or appropriate for any given patient. [employer] does not assume any responsibility for any aspect of healthcare administered with the aid of information [employer] provides. The information contained herein is not intended to cover all possible uses, directions, precautions, warnings, drug interactions, allergic reactions, or adverse effects. If you have questions about the drugs you are taking, check with your doctor, nurse or pharmacist. Copyright 4915-0483 [employer] Version: 16.03. Revision Date: 03/24/2020. Emergency Awareness [...] Assistance with quitting is available by contacting 9-427-QPPRNOW. This is a free resource providing counseling, support, and referral. Or you may contact your personal physician. [employer] Suicide Prevention Lifeline: The National Suicide Prevention [...] range between ( 0.0 and 7.0 ) Cuming #: 0.45 K/uL -- Normal range between ( 0.16 and 1.00 ) Eos #: 0.12 x10(3)/uL -- Normal range between ( 0.00 and 0.80 ) Cuming %: 8.1 % -- Normal range between [...] was given the opportunity to ask questions. Patient/Stock Order Lister Name: Patient/Stock Order Lister Signature: Relationship to Patient: Clinician/Hospital Stock Order Lister Signature: Date: documented in this encounter Plan of Treatment Not on file documented as of this encounter Visit Diagnoses Not on filedocumented in this encounter
--- OUTSIDE RECORDS SUMMARY | 2024-08-15 14:37 | XMS_ITS | Encounter Summary ---
Author Organization [employer] Address [address] [place] [address] Care Team Providers Care Process Treater Name Role Phone Unavailable Primary Care Provider Unavailabl e Encounter Details Date Type Department Care Team (Late st Contact Info) Description 07/20/2021 Transcribed Document [facility] [place] [facility] [place] [address] ProviderDario MD [address] [place] [address] Social History Tobacco Use Types Packs/Day [...] patient is aware of that as well. /[id number] MELVIN Rose/TUCKER / KRISTINE / MODL /[id number] documented in this encounter Plan of Treatment Not on file documented as of this encounter Visit Diagnoses Not on filedocumented in this encounter
--- OUTSIDE RECORDS SUMMARY | 2024-08-15 14:37 | XMS_ITS | Encounter Summary ---
Author Organization [employer] Address [address] [place] [address] Care Team Providers Care Extension Service Specialist Name Role Phone Unavailable Primary Care Provider Unavailabl e Encounter Details Date Type Department Care Team (Late st Contact Info) Description 05/11/2021 Transcribed Document [facility] [place] [facility] [place] [address] ProviderDario MD [address] [place] [address] Social History Tobacco Use Types Packs/Day [...] Source : Measured Height Entry Format : Bartholomew Height, Feet : 5 ft(Converted to: 152 cm, 60 Inch) Height, Inches : 10 Inch(Converted to: 0 ft 10 Inch, 25.40 cm) Clinical Height : 177.8 cm Weight Source : Standing scale Weight Entry Format : Bartholomew Clinical Dosing Weight : 118.27 kg Weight, Pounds : 260.2 lb Body Surface Area (BSA) : 2.34 m2 Body Mass Index : 37.4 kg/m2 (HI) [place] Body Weight : 72 kg RAVI SIERRA [...] RAVI SIERRA RN - 05/11/2021 11:52 EDT [place] Suicide Severity Rating Scale (C-SSRS) CSSRS Past [...] Ambulatory Legal Guardian : Spouse Support Person/Patient Service Desk Manager : Yes Support Person/Pt Rep Name : Belgica Corea, spouse Support Person/Pt Rep Contact Information : [phone] Want Family/Rep/Phys Notified of Admit : No Emergency Contact #1 : Belgicaomer Corea Emergency Contact #1 Emergency Contact #1 Relationship : spouse Emergency Contact #2 : . Emergency Contact #2 Phone Number : . Emergency Contact #2 Relationship : . Information Obtained From : Patient Primary Language : Ukrainian Preferred Communication Mode : Verbal Communication Barrier : None President And Chief Commercial Officer Needed : No Objects to Sharing Info w Family : No RAVI SIERRA RN - 05/11/2021 11:52 EDT Eyad Scale Eyad Sensory Perception : Slightly limited (Comment: peripheral neuropathy [RAVI SIERRA RN - 05/11/2021 11:52 EDT] ) Eyad Moisture : Occasionally moist Eyad Activity : [...]
--- OUTSIDE RECORDS SUMMARY | 2024-08-15 14:37 | XMS_ITS | Referral Summary ---
Author Organization [employer] Address [address] [place] [address] Care Team Providers Care Front Desk Monitor Name Role Phone Unavailable Primary Care Provider [...]
--- OUTSIDE RECORDS SUMMARY | 2024-08-15 14:37 | XMS_ITS | Encounter Summary ---
Author Organization [employer] Address [address] [place] [address] Care Team Providers Care Social Human Services Assistants Name Role Phone Unavailable Primary Care Provider Unavailabl e Encounter Details Date Type Department Care Team (Late st Contact Info) Description 05/13/2021 Transcribed Document [facility] [place] Family Medicine [facility] [place] [address] ProviderDario MD [address] [place] [address] Social History Tobacco Use Types Packs/Day [...] Historical Provider, - 05/13/2021 7:45 AM CDT [facility] Main OR Preop Summary Primary Physician: HERMINIO NORIEGA, PIYUSHM-POD Finalized Date/Time: 05/13/21 13:52:43 Pt. Name: TERA COREA /Sex: 1960 Male Med Rec #: [id number] Physician: HERMINIO NORIEGA, DPM-POD Financial #: [id number] Pt. Type: O Room/Bed: 18 Admit/Disch: 05/13/21 06:31:00 - 05/13/21 09:45:00 Institution: [facility] PreOp Case Times Entry 1 In Preop 05/13/21 05:53:00 Ready for Holding n/a Room Patient Ready for 05/13/21 06:38:00 Surgery Patient Out of Preop 05/13/21 07:28:00 Patient Out of n/a Holding Room Last Modified By: MIKE DELUCA 05/13/21 13:52:39 [facility] PreOp Case Times Audit 05/13/21 13:52:39 Pool Attendant: LISA Modifier: LISA <+> 1 Patient Out of Preop Finalized By: MIKE DELUCA Document Signatures Signed By: MIKE DELUCA 05/13/21 13:52 Electronically signed by [facility] Conversion Corporate Affairs Manager Cerner at 06/07/2022 11:44 PM CDT documented in this encounter Plan of Treatment Not on file documented as of this encounter Visit Diagnoses Not on filedocumented in this encounter
--- OUTSIDE RECORDS SUMMARY | 2024-08-15 14:37 | XMS_ITS | Clinical Summary ---
Author Organization [facility] Address [address] [place] [address] Care Team Providers Care Bridge Crane Operator Name Role Phone Kwesi Faye MD Primary Care Provider [phone] Allergies Active Allergy Reactions Criticality Noted Date [...] Type Department Care Team Description 07/01/2024 Refill [facility] Endocrinology [address] [place] [address] Lu Cameron APRN 05/29/2024 3:20 PM EDT Office Visit [facility] Endocrinology [address] [place] [address] Lu Cameron, ENGINEERING LABORATORY TECHNICIAN Type 2 diabetes mellitus with hyperglycemia, with long-term current use of insulin ([facility]) (Primary Dx); Hyperlipidemia, unspecified hyperlipidemia type; Hypertension, [...] Description 09/05/2024 2:40 PM EDT Office Visit [facility] Endocrinology [address] [place] [address] Lu Cameron S, ENGINEERING LABORATORY TECHNICIAN [address] [place] [address] Health Maintenance Due Date Last [...] - Risk 60-74 years 1-dose series) 2021 [id number] Vaccine ( - season) 2023 [facility]-Depression Screening [...] hyperglycemia, with long-term current use of insulin ([facility]) from Last 3 Months Results * POCT glycosylated hemoglobin (Hb A1C) (05/29/2024 2:58 PM EDT) POCT Hemoglobin A1C 8.7 <5.7% Non-Diabe tic % [facility] Kit Lot Number [id number] [facility] Kit Expiration Date 04/19/2026 [facility] Blood Venous blood specimen / Unknown 05/29/2024 2:58 PM EDT us Lu Cameron ENGINEERING LABORATORY TECHNICIAN POINT OF CARE TEST ENTER/ED IT ORDERABLES Final Result [facility] [address] [place] [address] from Last 3 Months Insurance [facility] MEDICARE Care Teams Bridge Crane Operator Relationship Specialty Start Date End Date Kwesi Faye MD [address] [place] [id number] PCP - General Family Medicine 05/01/23
--- OUTSIDE RECORDS SUMMARY | 2024-08-15 14:37 | XMS_ITS | Clinical Summary ---
Author Organization [facility] Address [address] [place] [address] Care Team Providers Care Medical Territory Manager Name Role Phone Unavailable Primary Care [...]
--- OUTSIDE RECORDS SUMMARY | 2024-08-15 14:37 | XMS_ITS | Encounter Summary ---
Author Organization [facility] Address [address] [place] [address] Care Team Providers Care Department [employer] Name Role Phone Unavailable Primary Care Provider Unavailabl e Encounter Details Date Type Department Care Team (Late st Contact Info) Description 05/11/2021 Transcribed Document [facility] Family Medicine [facility] [place] [address] ProviderDario MD [address] [place] [id number] Social History Tobacco Use Types Packs/Day Years [...] Empathic/Engaged listening, Family/Significant other supported Spiritual and Hoahaoism : Prayer shared, Spiritual/Hoahaoism support provided MIGUEL MARTIN 05/13/2021 8:00 EDT documented in this encounter Plan of Treatment Not on file documented as of this encounter Visit Diagnoses Not on filedocumented in this encounter
--- OUTSIDE RECORDS SUMMARY | 2024-08-15 14:37 | XMS_ITS | Encounter Summary ---
Author Organization [facility] Address [address] [place] [id number] Care Team Providers Care Lease Out Man Name Role Phone Unavailable Primary Care Provider Unavailabl e Encounter Details Date Type Department Care Team (Late st Contact Info) Description 05/13/2021 Transcribed Document [facility] Family [place] [facility] [place] [address] ProviderDario MD [address] [place] [id number] Social History Tobacco Use Types Packs/Day [...]
[2024-08-15 15:26] LABS: Basophils # 0.1 K/mm3 (0-0.2); Basophils % 1.6 % (0.1-2.0); Eosinophils # 0.1 Kmm3 (0.0-0.4); Eosinophils % 1.9 % (0.1-12.0); Hematocrit 38.8 % (42.0-52.0); Hemoglobin 12.3 g/dL (14.1-18.0); Immature Granulocytes # 0.02 10^3uL; Immature Granulocytes % 0.3 %; Lymphocytes % 32.1 % (10-50); Mean Corpuscular HGB Conc 31.7 g/dL (31.8-35.4); Mean Corpuscular Hemoglobin 28.2 pg (27.0-31.2); Monocytes # 0.4 K/mm3 (0.1-1.0); Monocytes % 5.9 % (1.7-9.3); Neutrophils # 3.7 K/mm3 (1.8-7.8); Neutrophils % 58.2 % (37.0-80.0); Nucleated Red Blood Cells # 0 10^3/uL; Nucleated Red Blood Cells % 0 %; Platelet Count 297 K/mm3 (142-424); Red Blood Count 4.36 M/mm3 (4.60-6.20); Red Cell Distribution Width 12.3 % (11.5-17.5); Red Cell Distribution Width-SD 40.3 fL; White Blood Count 6.3 K/mm3 (4.8-10.8)
[2024-08-15 16:04] LABS: Hemoglobin A1C 10.7 % (4.0-6.0)
[2024-08-15 16:06] LABS: Alanine Aminotransferase 16 U/L (12-78); Albumin Level 4.2 g/dl (3.5-5.0); Albumin/Globulin Ratio 1.6 (1.1-1.8); Alkaline Phosphatase 116 U/L (38-126); Anion Gap 14.3 mEq/L (5-15); Aspartate Amino Transferase 24 U/L (17-59); Bilirubin,Total 0.6 mg/dl (0.2-1.3); Blood Urea Nitrogen 20 mg/dl (9-20); Calcium 9.9 mg/dl (8.4-10.2); Carbon Dioxide 28 mmol/L (22.0-30.0); Chloride 98 mmol/L (98-107); Estimated Glomerular Filt Rate 68 ml/min (>60); GFR (African American) 82 ML/MIN (>60); Globulin 2.6 g/dL (1.3-3.2); Glucose 191 mg/dl (74-100); Potassium 4.3 mmoL/L (3.5-5.1); Sodium 136 mmol/L (136-145); Total Protein,Serum 6.8 g/dl (6.3-8.2); Uric Acid 5.7 mg/dl (3.5-8.5)
[2024-08-15 16:11] LABS: C-Reactive Protein 1.1 mg/L (0-4)
[2024-08-15 16:23] LABS: Erythrocyte Sedimentation Rate 85 mm/hr (0-20)
== END 2024-08-15 23:59 | disposition home or self-care (01) ==
LOC: LAB 14:36
PROVIDERS: PCP Family Medicine; Visit Provider Podiatrist
DX: E11.622 Type 2 diabetes mellitus with other skin ulcer (principal); L98.499 Non-pressure chronic ulcer of skin of other sites with unspecified severity; M21.962 Unspecified acquired deformity of left lower leg
CPT/HCPCS: 36415; 80053; 83036; 84550; 85025; 85651; 86140

== ENCOUNTER 2025-01-14 11:37 | Outpatient (CLI) | payer MEDICARE, SELFPAY ==
--- OUTSIDE RECORDS SUMMARY | 2025-01-01 13:20 | XMS_ITS | Encounter Summary ---
Author Organization [facility] Address [address] [place] [address] Care Team Providers Care Regional Facilities Manager Name Role Phone Kwesi Faye MD Primary Care Provider [phone] Reason for Referral * Consultation (Routine) - Authorized Specialty Diagnoses / Procedures Referred By Dane higgins Referred To Contact Diagnoses Type 2 diabetes mellitus with hyperglycemia, with long-term current use of insulin Lu Cameron APRN [address] [address] Phone: tel: fax: Referral ID Status Reason Start Date Expiration Date V isits Requested Visits Authorized [id number] Authorized 01/01/2025 07/03/2026 1 1 Reason for Visit * Reason Comments Diabetes * Consultation (Routine) - Closed Specialty Diagnoses / Procedures Referred By Dane higgins Referred To Contact Diagnoses Type 2 diabetes mellitus with hyperglycemia, with long-term current use of insulin Lu Cameron APRN [address] [address] Phone: tel: fax: Referral ID Status Reason Start Date Expiration Date Visits Re quested Visits Authorized [id number] Closed 09/05/2024 03/07/2026 1 1 Encounter Details Date Type Department Care Team (Late st Contact Info) Description 01/01/2025 1:20 PM EST Office Visit [facility] Endocrinology [address] [place] [address] Lu Cameron, CHILD STUDY TEAM DIRECTOR [address] [place] [address] Type 2 diabetes mellitus with hyperglycemia, with long-term current use of insulin (Primary Dx); Hyperlipidemia, unspecified hyperlipidemia type; Neuropathy; Class 2 severe obesity with serious comorbidity and body mass index (BMI) of 37.0 to 37.9 in adult, unspecified obesity type; Hypertension, unspecified type; Hypoglycemia Social History Tobacco Use Types Packs/Day Years [...] on file documented as of this encounter Last Filed Vital Signs Vital Sign Reading Time Taken Comments Blood Pressure 150/82 01/01/2025 12:55 PM EST Pulse 64 01/01/2025 12:55 PM EST Temperature - - Respiratory Rate - - Oxygen Saturation - - Inhaled Oxygen Concentration - - Weight 117 kg (258 lb 9.6 oz) 01/01/2025 12:55 P M EST Height 177.8 cm (5' 10 ) 01/01/2025 12:55 PM EST Body Mass Index 37.11 01/01/2025 12:55 PM EST documented in this encounter Miscellaneous Notes * Progress Notes - Lu Cameron, HATTIE - 01/01/2025 1:20 PM EST Images from the original note were not included. Subjective Eulalio Corea is a 64 y.o. male who presents for an follow up evaluation of Diabetes Mellitis Type 2. Patient was diagnosed approximately 2002. History of neuropathy, gastroparesis, diabetic foot ulcers, hypertension, hyperlipidemia, retinopathy, DKA, on suboxone, non-compliance, hypoglycemic unawareness HPI -accompanied by spouse -A1c: declined check today, reports insurance sent a home test (7.9%) Dec 2024 (no result for review), does not want to get billed for another test. Estimated GMI per cgm 7.6% -Last A1C: 9.2% August 2024 Current treatment includes intensive insulin injection program -Lantus 18 units in AM -Novolog 10 units with meals, 5 units with snacks, 1:40>150 SS -previous medications: metformin- sick, Jardiance- history DKA, no GLP-1 with history gastroparesis, premix Known diabetic complications: retinopathy, peripheral neuropathy, and gastroparesis -Compliance at present is estimated to be fair. -injecting insulin into the abdomen/arm, rotates injection site, denies scar tissue noted at injection site, denies insulin leakage at injection site -per last note: Some forgotten doses or late doses Cardiovascular risk factors: advanced age (older than 55 for men, 65 for women), diabetes mellitus,dyslipidemia, hypertension, male gender, obesity (BMI >= 30 kg/m2), and sedentary lifestyle Is he on MISSY inhibitor or angiotensin II receptor devin? Yes blood pressure elevated- asymptomatic, forgot blood pressure medications today Is he on a StatinYes, no myalgias (sometimes forgets to take) Current diet:on average, 2 meals per day, meals around 11am and 6-7pm, no changes -cut back on sugary drinks -not interested in carb counting Current exercise: limited with ankle pain Home blood sugar records: Patient's continuous glucose monitor was downloaded and reviewed with the patient during the visit CGM dates reviewed: 12/19/24-01/01/25 Interpretation: significant hyperglycemia around 12pm-6pm and 7pm-midnight Avg B GMI: 7.6% Percentage time in range: 58% Percentage of time with low blood glucose: 2% -Eye exam: Nov 2024, history retinopathy -Foot exam: history neuropathy, history diabetic ulcers (not current), history right ankle issues, hx pre-ulcerative calluses, hammer toes, using specialized shoes, seeing podiatry periodically -Labs: due Eulalio Corea has ketone strips: yes/no: ordered, history DKA Eulalio Corea has glucagon kit: yes/no: Yes The following portions of the chart were reviewed this encounter and updated as appropriate: Tobacco Allergies Meds Problems Med Hx Surg Hx Fam Hx Review of Systems Constitutional: Negative. HENT: Negative. Eyes: Positive for visual disturbance. Respiratory: Negative. Cardiovascular: Negative. Negative for leg swelling. Gastrointestinal: Gastroparesis Endocrine: Negative for polydipsia and polyuria. See HPI Genitourinary: Negative. Neurological: Neuropathy Psychiatric/Behavioral: Negative. Objective Physical Exam Vitals reviewed. Constitutional: General: He is not in acute distress. Appearance: Normal appearance. He is obese. He is not ill-appearing. HENT: Head: Normocephalic. Nose: Nose normal. Cardiovascular: Rate and Rhythm: Normal rate and regular rhythm. Heart sounds: Normal heart sounds. Pulmonary: Effort: Pulmonary effort is normal. Breath sounds: Normal breath sounds. Musculoskeletal: General: Normal range of motion. Cervical back: Normal range of motion. Skin: General: Skin is warm and dry. Neurological: Mental Status: He is alert and oriented to person, place, and time. Psychiatric: Mood and Affect: Mood normal. Behavior: Behavior normal. Thought Content: Thought content normal. Judgment: Judgment normal. Lab Review Glucose, Plasma (mg/dL) Date Value 11/22/2023 84 11/10/2022 277 (H) 11/11/2021 273 (H) POCT Hemoglobin A1C (%) Date Value 09/05/2024 9.2 05/29/2024 8.7 02/27/2024 8.9 04/12/2021 9.6 (A) 01/11/2021 8.0 (A) 08/27/2020 8.8 (A) CO2, Plasma (mmol/L) Date Value 11/22/2023 27 11/10/2022 26 11/11/2021 25 BUN, Plasma (mg/dL) Date Value 11/22/2023 9 11/10/2022 15 11/11/2021 14 Creatinine, Plasma (mg/dL) Date Value 11/22/2023 1.10 11/10/2022 1.23 11/11/2021 1.20 Assessment/Plan Diabetes Mellitis Type 2, is uncontrolled. Rx changes: continue Novolog 10 units with meals, 5 units for snacks plus 1:40>150 SS, Lantus 18units in AM -encouraged pre-meal bolusing/proper timing of insulin. Explained that hypoglycemia often related to improper timing of insulin in relation to food. -glucagon prescription utd -encouraged healthy, consistent carb diet -labs ordered -follow up: 3 months #Hyperlipidemia -lipid panel pending -stable on statin, no myalgias, continue -encouraged healthy diet #Neuropathy -followed by podiatry -recommend daily foot checks, good blood glucose control #Retinopathy -continue regular eye exams per ophthalmology -recommend good blood glucose control to prevent progression #Obesity Body mass index is 37.11 kg/m??. -The patient received dietary education and exercise education because they have an above normal BMI. #HTN -uncontrolled, 150/82, asymptomatic, has not taken blood pressure medications today -stable on MISSY, no SE, continue antihypertensives #Hypoglycemia -reviewed ways to prevent and treatment of hypoglycemia -glucagon prescription utd -reviewed importance of FSBG monitoring to prevent hypoglycemia, he is using cgm The following Diabetes education was reviewed: [x]SBGM to evaluate dose needs [x]Insulin coverage with carbohydrate intake [x]Site rotation [] Exercise impact on glucose levels []Driving safety related to diabetes []Sick day management []Ketone testing []Over treatment of hypoglycemia [x] Hypoglycemia management [x]Call-in line use []Insulin pump pros and cons []Sensor home use []Pump class offerings []Courtney phenomena []Somogyi effect [] Alcohol related to diabetes []Benefits of written records [x]Pre-meal Bolusing []Daily foot care [x] Healthy diet and regular exercise []Long-term complications related to poor diabetes management [] Injection timing related to changes in activity/exercise Time spent in visit does not include the time spent in reviewing continuous glucose monitor I personally spent a total of minutes on this encounter. This time includes face to face with patient, counseling and discussion and/or coordination of care. Electronically signed by: Lu Cameron APRN [facility] ENDOCRINOLOGY [address] [place] [address]. [address] [place]. [address] PHONE [phone] FAX: [phone] documented in this encounter Plan of Treatment Upcoming Encounters Date Type Department Care Team (Late st Contact Info) Description 04/03/2025 1:00 PM EST Office Visit [facility] Endocrinology [address] [place] [id number] Lu Cameron, HATTIE [address] [place] [address] Scheduled Orders Name Type Priority Associated Diagnoses Orde r Schedule Albumin-creatinine ratio, urine, random Lab Routine Type 2 diabetes mellitus with hyperglycemia, with long-term current use of insulin 1 Occurrences starting 01/01/2025 until 07/05/2026 Comprehensive Metabolic Panel, Plasma Lab Routine Type 2 diabetes mellitus with hyperglycemia, with long-term current use of insulin 1 Occurrences starting 01/01/2025 until 07/05/2026 Lipid Profile, Plasma Lab Routine Type 2 diabetes mellitus with hyperglycemia, with long-term current use of insulin 1 Occurrences starting 01/01/2025 until 07/05/2026 Thyroid Stimulating Hormone, Plasma Lab Routine Type 2 diabetes mellitus with hyperglycemia, with long-term current use of insulin 1 Occurrences starting 01/01/2025 until 07/05/2026 Scheduled Referrals Name Type Priority Associated Diagnoses Orde r Schedule Follow Up [facility] Outpatient Referral Routine Type 2 diabetes mellitus with hyperglycemia, with long-term current use of insulin Expected: 04/03/2025, Expires: 07/05/2026 documented as of this encounter Visit Diagnoses Diagnosis Type 2 diabetes mellitus with hyperglycemia, with long-term current use of insulin- Primary Hyperlipidemia, unspecified hyperlipidemia type Neuropathy Mononeuritis of unspecified site Class 2 severe obesity with serious comorbidity and body mass index (BMI) of 37.0 to 37.9 in adult, unspecified obesity type Hypertension, unspecified type Hypoglycemia Hypoglycemia, unspecified documented in this encounter Additional Health Concerns Assessment Noted Time A fall risk assessment has been complete d for the patient 01/31/2023 1:12 PM EST A Body Mass Index follow-up plan has been documented for the patient 01/01/2025 2:09 PM EST documented as of this encounter Care Teams Regional Facilities Manager Relationship Specialty Start Date End Date Kwesi Faye MD [address] [place] [address] 1 [place] Cardenas [address] PCP - General Family Medicine 05/01/23 documented as of this encounter
--- OUTSIDE RECORDS SUMMARY | 2025-01-01 14:45 | XMS_ITS | Encounter Summary ---
Author Organization Healthcare Address [address] [place] [address] Care Team Providers Care Cogeneration Technician Name Role Phone Kwesi Faye MD Primary Care Provider [phone] Encounter Details Date Type Department Care Team (Latest Contact Info) Description 01/01/2025 2:45 PM EST Immunization [facility] [address] [place] [address] Need for immunization against influenza [...] Description 04/03/2025 1:00 PM EST Office Visit [facility] Endocrinology [address] [place] [address] Lu Cameron, HATTIE [address] [facility] [address] [place] [address] documented as of this encounter [...] documented as of this encounter Care Teams Cogeneration Technician Relationship Specialty Start Date End Date Kwesi Faye MD [address] [place] [address] PCP - General Family Medicine 05/01/23 documented as of this encounter
--- OUTSIDE RECORDS SUMMARY | 2025-01-14 11:43 | XMS_ITS | Encounter Summary ---
Author Organization [facility] Address [address] [place] [address] Care Team Providers Care Diet Clerk Name Role Phone Kwesi Faye MD Primary Care Provider [phone] Reason for Visit * Reason Comments Med Refill Encounter Details Date Type Department Care Team (Late st Contact Info) Description 11/26/2024 Refill [facility] Endocrinology [address] [place] [address] Lu Cameron S, CURRICULUM COORDINATOR [address] [facility] [address] [place] [address] Social History Tobacco Use Types [...] encounter Miscellaneous Notes * Telephone Encounter - Rosina Lai, PharmD - 11/26/2024 1:51 PM EDT Refill request does not meet protocol. Sending to clinic for review. Additional info: Clarification required: labs are overdue. documented in this encounter Plan of Treatment Upcoming Encounters Date Type Department Care Team (Late st Contact Info) Description 04/03/2025 1:00 PM EST Office Visit [facility] Endocrinology [address] [place] [address] Lu Cameron, CURRICULUM COORDINATOR [address] [facility] [address] [place] [address] documented as of this encounter Visit Diagnoses Not on filedocumented in this encounter Additional Health Concerns Assessment Noted Time A fall risk assessment has been complete d for the patient 01/31/2023 1:12 PM EST A Body Mass Index follow-up plan has been documented for the patient 09/05/2024 2:28 PM EDT documented as of this encounter Care Teams Diet Clerk Relationship Specialty Start Date End Date Kwesi Faye MD [address] [place] [address] PCP - General Family Medicine 05/01/23 documented as of this encounter
--- OUTSIDE RECORDS SUMMARY | 2025-01-14 11:43 | XMS_ITS | Encounter Summary ---
Author Organization Healthcare Address [address] [place] [address] Care Team Providers Care Mixer Runner Name Role Phone Kwesi Faye MD Primary Care Provider [phone] Encounter Details Date Type Department Care Team (Latest Contact Info) Description 01/01/2025 Travel Social History Tobacco Use Types Packs/Day Years [...] Description 04/03/2025 1:00 PM EST Office Visit [facility] Endocrinology [address] [place] [address] Lu Cameron S, [employer] [address] [place] [address] documented as of this encounter Visit Diagnoses Not on filedocumented in this encounter Additional Health Concerns Assessment Noted Time A fall risk assessment has been complete d for the patient 01/31/2023 1:12 PM EST A Body Mass Index follow-up plan has been documented for the patient 01/01/2025 2:09 PM EST documented as of this encounter Care Teams Mixer Runner Relationship Specialty Start Date End Date Kwesi Faye MD [address] [place] [address] [address]as [id number] PCP - General Family Medicine 05/01/23 documented as of this encounter
--- OUTSIDE RECORDS SUMMARY | 2025-01-14 11:43 | XMS_ITS | Clinical Summary ---
Author Organization [employer] ([place], [place], [place], [place], [place]) Address [address] [place] [address] Care Team Providers Care Technical Sales Engineer Name Role Phone Unavailable Primary Care Provider [...]
--- OUTSIDE RECORDS SUMMARY | 2025-01-14 11:43 | XMS_ITS | Clinical Summary ---
[facility] Organization [facility] Address [address] [place] [id number] Care Team Providers Care Water Resource Engineer Name Role Phone Jhonatan Faye MD Primary Care Provider [phone] Social History Tobacco Use Types Packs/Day Years Used Date Smoking Tobacco: Never Assessed Abuse Screen Answer Date Recorded Unsafe at Home or Work/School Not on file Feels Threatened by Someone? Not on file 12/2022 Does Anyone Keep You from Co ntacting Others or Doint Things Outside the Home? Not on file 11/30/2022 Physical Sign of Abuse Present Not on file 1 Housing Stability Answer Date Recorded Current Living Arrangements Not on file 11/20 Potentially Unsafe Housing Conditions Not on faisal e 11/30/2022 Family and Community Support Answer David e Recorded Help with Day-to-Day Activities Not on file 11/30/2022 Lonely or Isolated Not on file 11/30/2022 Employment Answer Date Recorded Do you want help finding or keeping work or a javed b? Not on file 11/30/2022 Disabilities Answer Date Recorded Concentrating, Remembering, or Making Decisions Difficulty Not on file 11/30/2022 Doing Errands Independently Difficulty Not on fi le 11/30/2022 Education Answer Date Recorded Help with school or training? Not on file Preferred Language Not on file 11/30/2022 Sex and Gender Information Value Date Recorded Sex Assigned at Not on file Legal Sex Male 11:16 AM EDT Gender Identity Not on file Sexual Orientation Not on file Plan of Treatment Health Maintenance Due Date Last Done Comments ANNUAL PHYSICAL 1961 HEPATITIS C SCREENING 1961 TDAP/TD VACCINES (1 - Tdap) 1980 COLOGUARD 2006 COLON CANCER SCREENING 5 YEA R SIGMOIDOSCOPY 2006 COLONOSCOPY [address] CANCER SCREENING 2006 CT COLONOGRAPHY 2006 FECAL OCCULT BLOOD TEST 2006 FIT Testing (1 year) 2006 Pneumococcal Vaccine 50+ (1 of 1 - PCV) 12/11/2011 ZOSTER VACCINE (1 of 2) 12/11/2011 INFLUENZA VACCINE 09/20/2024 HEMOGLOBIN A1C Discontinued 09/05/2024, 04/0 10/2024, 02/27/2024, Additional history exists Care Teams Water Resource Engineer Relationship Specialty [place] [address] [place] [address] PCP - General 10/16/14
--- OUTSIDE RECORDS SUMMARY | 2025-01-14 11:43 | XMS_ITS | Encounter Summary ---
Author Organization [facility] Address [address] [place] [address] Care Team Providers Care Guard Dance Hall Name Role Phone Mal Song MD Primary Care Provider [phone] Kwesi Faye MD Primary Care Provider Reason for Visit * Reason Comments Med Refill Encounter Details Date Type Department Care Team (Late st Contact Info) Description 06/29/2022 Refill [facility] Endocrinology [address] [place] [address] Lu Cameron, RELIEF PHARMACIST [address] [address] Social History Tobacco Use Types [...] 60 day supply with 0 refill(s) to [facility] pharmacy. Electronically signed by Modesta Mccartney 06/29/2022 12:47 PM EDT documented in this encounter Plan of Treatment Upcoming Encounters Date Type Department Care Team (Late st Contact Info) Description 04/03/2025 1:00 PM EST Office Visit [facility] Endocrinology [address] [place] [address] Lu Cameron, RELIEF PHARMACIST [address] [place] [address] documented as of this encounter Visit Diagnoses Not on filedocumented in this encounter Additional Health Concerns Assessment Noted Time A fall risk assessment has been complete d for the patient 11/11/2021 8:36 AM EDT documented as of this encounter Care Teams Guard Dance Hall Relationship Specialty Start Date End Date Mal Song MD [address] [place] [address] PCP - General 07/03/20 04/30/23 Kwesi Faye MD [address] [place] [address] PCP - General Family Medicine 05/01/23 documented as of this encounter
--- OUTSIDE RECORDS SUMMARY | 2025-01-14 11:43 | XMS_ITS ---
Author Organization Unknown Vital Signs BpStanding BpSitting BpSupine Date Temperature HeartRate Weight Hei ght Spo2 Respiration Bmi HeadCircumference FieldCount TimeRecorded NeckCircumferen ce WaistCircumference Pulse Custom 140/68 09/30 00:00 :00 257,0 5,10 36.8 7 4 01/04/2025 10:00:00
--- OUTSIDE RECORDS SUMMARY | 2025-01-14 11:43 | XMS_ITS | Clinical Summary ---
Author Organization [facility] Address [address] [place] [address] Care Team Providers Care Stretching Machine Operator Name Role Phone Kwesi Faye MD Primary Care Provider [phone] Allergies Active Allergy Reactions Criticality Noted Date Comments Sulfamethoxazole-Trimethoprim Hives Medium 2012 Medications buprenorphine- naloxone (Suboxone) 8-2 MG SL tablet DISSOLVE 1 & ONE-HALF TABLETS UNDER THE TONGUE EVERY DAY 0 Active omeprazole (PriLOSEC) [address] capsule Take 1 capsule (20 mg) by mouth 1 (one) time each day. 4 Active Blood Glucose Monitoring Suppl (Blood Glucose Monitor System) w/Device kit Please provide meter and strips compatible with patient's insurance 1 kit 5 Active glucose blood test strip 4x/day, Please provide strips compatible with patient's meter and insurance 120 each 11 5 Active Lancets misc Use 1-4x/day as directed 120 each 11 5 Active lisinopril 2.5 MG tablet TAKE 1 TABLET BY MOUTH DAILY 90 tablet 1 5 Active Continuous Glucose Sensor (FreeStyle Taylor 3 Plus Sensor) mis 1 sensor every 15 days. 6 each 3 5 026 Active atorvastatin (Lipitor) 40 MG tablet TAKE 1 TABLET BY MOUTH DAILY 90 tablet 5 026 Active sildenafil (Revatio) 20 MG tablet take 3 tablets by mouth once a day 5 Active insulin glargine (Lantus SoloStar) 100 UNIT/ML injection pen Inject 18 Units under the skin every morning. 30 mL 2 5 026 Active insulin lispro (HumaLOG KWIKPEN) 100 UNIT/ML injection pen Inject subcutaneous 10 units before first meal and 5 units before second meal, correction 1:40>150 to MDD of 50 units 45 mL 3 5 Active pen needle, diabetic (B-D UF III MINI PEN NEEDLES) 31G X 5 MM misc Use 4x/day 360 each 3 5 Active Dasiglucagon HCl (Zegalogue) 0.6 MG/0.6ML solution auto-injector Use as directed in severe Hypoglycemia 0.6 mL 3 5 Active glucagon 1 MG injection Use as directed for severe hypoglycemia 1 each 3 4 025 Discontin ued(Reord er) insulin lispro (HumaLOG KWIKPEN) 100 UNIT/ML injection pen Inject subcutaneous 10 units before first meal and 5 units before second meal, correction 1:40>150 to MDD of 50 units 45 mL 3 5 025 Discontin ued(Reord er) pen needle, diabetic (B-D UF III MINI PEN NEEDLES) 31G X 5 MM misc Use 4x/day 120 each 11 5 025 Discontin ued(Reord er) insulin glargine (Lantus SoloStar) 100 UNIT/ML injection pen Inject 16 Units under the skin every morning. 15 mL 3 5 025 Discontin ued(Reord er) glucagon 1 MG injection Use as directed for severe hypoglycemia 1 each 3 5 025 Discontin ued(Formu rambo change) Active Problems Problem Noted Date Diagnosed Date [...] Encounters Date Type Department Care Team Description 01/02/2025 Orders Only [facility] [address] [place] [address] Lu Cameron APRN 01/01/2025 2:[address] [facility] [address] [place] [address] Need for immunization against influenza (Primary Dx) 01/01/2025 1:20 PM EST Office Visit [facility] [address] [place] [address] Lu Cameron, WATER ANALYST Type 2 diabetes mellitus with hyperglycemia, with long-term current use of insulin (Primary Dx); Hyperlipidemia, unspecified hyperlipidemia type; Neuropathy; Class 2 severe obesity with serious comorbidity and body mass index (BMI) of 37.0 to 37.9 in adult, unspecified obesity type; Hypertension, unspecified type; Hypoglycemia 01/01/2025 Travel 11/26/2024 Refill [facility] [address] [place] [address] Lu Cameron APRN from Last 3 Months Immunizations Immunization Administration Dates Next Due Influenza, seasonal, injectable, preservative fr ee 01/01/2025 Family History Medical History Relation Name Comments [...] Pulse 64 01/01/2025 12:55 PM EST Temperature 36.6 C (97.9 F) 08/27/2020 2:24 PM EDT Respiratory Rate 18 07/14/2020 10:50 AM EDT Oxygen Saturation - - Inhaled Oxygen Concentration - - Weight 117 kg (258 lb 9.6 oz) 01/01/2025 12:55 P M EST Height 177.8 cm (5' 10 ) 01/01/2025 12:55 PM EST Body Mass Index 37.11 01/01/2025 12:55 PM EST Plan of Treatment Upcoming Encounters Date Type Department Care Team (Late st Contact Info) Description 04/03/2025 1:00 PM EST Office Visit [facility] [address] [place] [id number] Lu Cameron S, WATER ANALYST [address] [place] [address] Health Maintenance Due Date Last Done Comments [facility]-HIV Screening 1961 [facility]-Hepatitis C Screening 1960 [facility]-Medicare Annual Wellness (AWV) 1960 [facility]-Infant/Child/Adol SDOH Screenings 1960 Diabetes: Dental Exam 12/11/1971 [...] - Risk 60-74 years 1-dose series) 2021 [facility]-Depression Screening 02/01/2024 01/31/2023 [id number] Vaccine ( - season) 2024 [facility]-Diabetes: Hemoglobin A1C 12/05/2024, 05/29/2024, 02/27/2024, Additional history exists [facility]-Influenza Vaccine Completed 01/01/2025, 022 [facility]-Obesity Intervention Completed 025, 09/05/2024, 05/29/2024, Additional history exists HPV Vaccines Aged Out [...] Comments POCT GLYCOSYLATED HEMOGLOBIN (HGB A1C) Routine 09/05/2024 1:51 PM EDT Type 2 diabetes mellitus with hyperglycemia, with long-term current use of insulin ([facility]) from Last 3 Months or Most Recently Relevant to Health Maintenance Results * POCT glycosylated hemoglobin (Hb A1C) (09/05/2024 1:51 PM EDT) POCT Hemoglobin A1C 9.2 <5.7% Non-Diabe tic % [facility] Kit Lot Number [id number] [facility] Kit Expiration Date 06/19/2026 [facility] Blood Venous blood specimen / Unknown 09/05/2024 1:51 PM EDT Lu Cameron WATER ANALYST POINT OF CARE TEST ENTER/ED IT ORDERABLES Final Result [facility] [address] [place] [address] from Last 3 Months or Most Recently Relevant to Health Maintenance Insurance [facility] MEDICARE Care Teams Stretching Machine Operator Relationship Specialty Start Date End Date Kwesi Faye MD [address] [place] [address] [address] [place] [address] PCP - General Family Medicine 05/01/23
--- OUTSIDE RECORDS SUMMARY | 2025-01-14 11:43 | XMS_ITS | Referral Summary ---
Author Organization [facility] ([place], [place], [place], [place], [place]) Address [address] [place] [address] Care Team Providers Care Talcer Name Role Phone Unavailable Primary Care Provider [...]
--- OUTSIDE RECORDS SUMMARY | 2025-01-14 11:43 | XMS_ITS | Encounter Summary ---
Author Organization [facility] Address [address] [place] [address] Care Team Providers Care Engine Monitor Name Role Phone Kwesi Faye MD Primary Care Provider [phone] Encounter Details Date Type Department Care Team (Late st Contact Info) Description 01/02/2025 Orders Only [facility] [address] [place] [address] Lu Cameron, FOLDER TIER [address] [address] Social History Tobacco Use [...] Description 04/03/2025 1:00 PM EST Office Visit [facility] [address] [place] [address] Lu Cameron, FOLDER TIER [facility] [address] [place] [address] documented as of this encounter Visit Diagnoses Not on filedocumented in this encounter Additional Health Concerns Assessment Noted Time A fall risk assessment has been complete d for the patient 01/31/2023 1:12 PM EST A Body Mass Index follow-up plan has been documented for the patient 01/01/2025 2:09 PM EST documented as of this encounter Care Teams Engine Monitor Relationship Specialty Start Date End Date Kwesi Faye MD [address] [place] [address] PCP - General Family Medicine 05/01/23 documented as of this encounter
[2025-01-14 12:26] LABS: Albumin Level 3.6 g/dl (3.5-5.0); Chloride 105 mmol/L (98-107); Sodium 141 mmol/L (136-145)
[2025-01-14 12:27] LABS: Potassium 4.4 mmoL/L (3.5-5.1)
[2025-01-14 12:29] LABS: Alanine Aminotransferase 17 U/L (12-78); Alkaline Phosphatase 110 U/L (38-126); Anion Gap 13.4 mEq/L (5-15); Aspartate Amino Transferase 26 U/L (17-59); Bilirubin,Total 0.6 mg/dl (0.2-1.3); Blood Urea Nitrogen 14 mg/dl (9-20); Carbon Dioxide 27 mmol/L (22.0-30.0); Creatinine,Serum 1.20 mg/dl (0.66-1.25); Estimated Glomerular Filt Rate 61 ml/min (>60); GFR (African American) 74 ML/MIN (>60)
[2025-01-14 12:30] LABS: Albumin/Globulin Ratio 1.4 (1.1-1.8); Calcium 9.1 mg/dl (8.4-10.2); Cholesterol 167 mg/dl (140-200); Globulin 2.6 g/dL (1.3-3.2); Glucose 161 mg/dl (74-100); HDL Cholesterol 50 mg/dl (40-60); Total Protein,Serum 6.2 g/dl (6.3-8.2); Triglycerides 64 mg/dl (30-150)
== END 2025-01-14 23:59 | disposition home or self-care (01) ==
LOC: LAB 11:38
PROVIDERS: PCP Family Medicine; Visit Provider Nurse Practitioner Family
DX: E11.65 Type 2 diabetes mellitus with hyperglycemia (principal); Z79.4 Long term (current) use of insulin
CPT/HCPCS: 36415; 80053; 80061; 82043; 82570

== ENCOUNTER 2025-02-15 18:13 | Emergency (ER) | payer MEDICARE, SELFPAY ==
--- OUTSIDE RECORDS SUMMARY | 2025-01-01 13:20 | XMS_ITS | Encounter Summary ---
Author Organization [facility] Address [address] [place] [address] Care Team Providers Care Railroad Brake Repairer Name Role Phone Kwesi Faye MD Primary Care Provider [phone] Reason for Referral * Consultation (Routine) - Authorized Specialty Diagnoses / Procedures Referred By Dane higgins Referred To Contact Diagnoses Type 2 diabetes mellitus with hyperglycemia, with long-term current use of insulin Lu Cameron APRN [address] [address] Phone: tel: fax: Referral ID Status Reason Start Date Expiration Date V isits Requested Visits Authorized [id number] Authorized 01/01/2025 07/03/2026 1 1 Reason for Visit * Reason Comments Diabetes * Consultation (Routine) - Closed Specialty Diagnoses / Procedures Referred By Dane higgins Referred To Contact Diagnoses Type 2 diabetes mellitus with hyperglycemia, with long-term current use of insulin Lu Cameron APRN [address] [address] Phone: tel: fax: Referral ID Status Reason Start Date Expiration Date Visits Re quested Visits Authorized [id number] Closed 09/05/2024 03/07/2026 1 1 Encounter Details Date Type Department Care Team (Late st Contact Info) Description 01/01/2025 1:20 PM EST Office Visit [facility] Endocrinology [address] [place] [address] Lu Cameron, GLUING MACHINE OFFBEARER [address] [place] [address] Type 2 diabetes mellitus with [...] 12:55 PM EST documented in this encounter Functional Status * BP Answer Date of Assessment Author 150/82 01/01/2025 12:55 PM EST Morning, Susanne M * Pulse Answer Date of Assessment Author 64 01/01/2025 12:55 PM EST Morning, Susanne M * Height Answer Date of Assessment Author 70 01/01/2025 12:55 PM EST Morning, Susanne M * Weight Answer Date of Assessment Author 4137.59 01/01/2025 12:55 PM EST MorningSusanne M * BMI (Calculated) Answer Date of Assessment Author 37.2 01/01/2025 12:55 PM EST Morning, Angenia M * Percent Excess Weight Loss Answer Date of Assessment Author 0 01/01/2025 12:55 PM EST Morning, Angenia M * Total Weight Change Percent Answer Date of Assessment Author 2222 01/01/2025 12:55 PM EST Morning, Angenia M * Weight Change Since Preop Answer Date of Assessment Author 117.27 01/01/2025 12:55 PM EST Morning, Angenia M * Initial Excess Weight Answer Date of Assessment Author -75.3 01/01/2025 12:55 PM EST Morning, Angenia M * IBW in lbs (Bariatric) Answer Date of Assessment Author 166 01/01/2025 12:55 PM EST Morning, Angenia M * Weight Change Since Last Visit Answer Date of Assessment Author 117.27 01/01/2025 12:55 PM EST Morning, Angenia M * IBW in kg (Bariatric) Answer Date of Assessment Author 75.3 01/01/2025 12:55 PM EST Morning, Angenia M * Percent of IBW Answer Date of Assessment Author 5,494.81 01/01/2025 12:55 PM EST Morning, Angenia M * EBW (kg) Answer Date of Assessment Author 4,135.46 01/01/2025 12:55 PM EST Morning, Angenia M * EBW (lbs) Answer Date of Assessment Author 4,127.22 01/01/2025 12:55 PM EST Morning, Angenia M * Weight Change 24 hrs Answer Date of Assessment Author .2 01/01/2025 12:55 PM EST Morning, Angenia M * BSA (Calculated - sq m) Answer Date of Assessment Author 2.41 01/01/2025 12:55 PM EST Morning, Angenia M * BMI (Calculated) Answer Date of Assessment Author 37.11 01/01/2025 12:55 PM EST Morning, Angenia M * BP Location Answer Date of Assessment Author Right arm 01/01/2025 12:55 PM EST Morning, Angenia M * IBW/kg (Calculated) Male Answer Date of Assessment Author 73 01/01/2025 12:55 PM EST Morning, Angenia M * IBW/kg (Calculated) Female Answer Date of Assessment Author 68.5 01/01/2025 12:55 PM EST Morning, Angenia M * IBW/kg (Calculated) Answer Date of Assessment Author 73 01/01/2025 12:55 PM EST Morning, Angenia M * Weight in (lb) to have BMI = 25 Answer Date of Assessment Author 173.9 01/01/2025 12:55 PM EST Morning, Angenia M * BMI (Calculated) Answer Date of Assessment Author 37.2 01/01/2025 12:55 PM EST Morning, Angenia M * Percent Excess Weight Loss Answer Date of Assessment Author 0 01/01/2025 12:55 PM EST Morning, Angenia M * Weight Change Since Preop Answer Date of Assessment Author 117.3 01/01/2025 12:55 PM EST Morning, Angenia M * Initial Excess Weight Answer Date of Assessment Author -75.3 01/01/2025 12:55 PM EST Morning, Angenia M * IBW in kg (Bariatric) Answer Date of Assessment Author 75.3 01/01/2025 12:55 PM EST Morning, Angenia M * IBW in lb (Bariatric) Answer Date of Assessment Author 166 01/01/2025 12:55 PM EST Morning, Angenia M * Weight Change Since Last Visit Answer Date of Assessment Author 117.3 01/01/2025 12:55 PM EST Morning, Angenia M * Percent of IBW Answer Date of Assessment Author 155.78 01/01/2025 12:55 PM EST Morning, Angenia M * EBW (kg) Answer Date of Assessment Author 41.97 01/01/2025 12:55 PM EST Morning, Angenia M * EBW (lb) Answer Date of Assessment Author 92.6 01/01/2025 12:55 PM EST Morning, Angenia M * Difference in Weight Since Last Visit Answer Date of Assessment Author 0.2 01/01/2025 12:55 PM EST Morning, Angenia M * IBW/kg (Calculated) Answer Date of Assessment Author 73 01/01/2025 12:55 PM EST Morning, Angenia M * Adult Low Range Vt 6mL/kg Answer Date of Assessment Author 438 01/01/2025 12:55 PM EST Morning, Angenia M * Adult Moderate Range Vt 8mL/kg Answer Date of Assessment Author 584 01/01/2025 12:55 PM EST Morning, Angenia M * Adult High Range Vt 10mL/kg Answer Date of Assessment Author 730 01/01/2025 12:55 PM EST Morning, Angenia M * Pain Score Answer Date of Assessment Author 0 01/01/2025 1:02 PM EST Morning, Angenia M * Patient Position Answer Date of Assessment Author Sitting 01/01/2025 12:55 PM EST Morning, Angenia M * Pain Screening/Additional Assessments Question Answer Date of Assessment Author Pain Screening/Assessments Pain Screening 01/01/2025 1 :02 PM EST Morning, Angenia M * Pain Screening Answer Date of Assessment Author 0-10 01/01/2025 1:02 PM EST Morning, Angenia M * BP Answer Date of Assessment Author 150/82 01/01/2025 12:55 PM EST Morning, Angenia M * Pulse Answer Date of Assessment Author 64 01/01/2025 12:55 PM EST Morning, Angenia M * Height Answer Date of Assessment Author 70 01/01/2025 12:55 PM EST Morning, Angenia M * Weight Answer Date of Assessment Author 4137.59 01/01/2025 12:55 PM EST Morning, Angenia M * BSA (Calculated - sq m) Answer Date of Assessment Author 2.41 01/01/2025 12:55 PM EST Morning, Angenia M * BMI (Calculated) Answer Date of Assessment Author 37.11 01/01/2025 12:55 PM EST Morning, Angenia M * BP Location Answer Date of Assessment Author Right arm 01/01/2025 12:55 PM EST Morning, Angenia M * Weight in (lb) to have BMI = 25 Answer Date of Assessment Author 173.9 01/01/2025 12:55 PM EST Morning, Angenia M * Pain Score Answer Date of Assessment Author 0 01/01/2025 1:02 PM EST Morning, Angenia M * Patient Position Answer Date of Assessment Author Sitting 01/01/2025 12:55 PM EST Morning, Angenia M documented as of this encounter Mental Status * BP Answer Entry Date Author 150/82 01/01/2025 12:55 PM EST Morning, Angenia M * Pulse Answer Entry Date Author 64 01/01/2025 12:55 PM EST Morning, Angenia M * Height Answer Entry Date Author 70 01/01/2025 12:55 PM EST Morning, Angenia M * Weight Answer Entry Date Author 4137.59 01/01/2025 12:55 PM EST Morning, Angenia M * BMI (Calculated) Answer Entry Date Author 37.2 01/01/2025 12:55 PM EST Morning, Angenia M * Percent Excess Weight Loss Answer Entry Date Author 0 01/01/2025 12:55 PM EST Morning, Angenia M * Total Weight Change Percent Answer Entry Date Author 2222 01/01/2025 12:55 PM EST Morning, Angenia M * Weight Change Since Preop Answer Entry Date Author 117.27 01/01/2025 12:55 PM EST Morning, Angenia M * Initial Excess Weight Answer Entry Date Author -75.3 01/01/2025 12:55 PM EST Morning, Angenia M * IBW in lbs (Bariatric) Answer Entry Date Author 166 01/01/2025 12:55 PM EST Morning, Angenia M * Weight Change Since Last Visit Answer Entry Date Author 117.27 01/01/2025 12:55 PM EST Morning, Angenia M * IBW in kg (Bariatric) Answer Entry Date Author 75.3 01/01/2025 12:55 PM EST Morning, Angenia M * Percent of IBW Answer Entry Date Author 5,494.81 01/01/2025 12:55 PM EST Morning, Angenia M * EBW (kg) Answer Entry Date Author 4,135.46 01/01/2025 12:55 PM EST Morning, Angenia M * EBW (lbs) Answer Entry Date Author 4,127.22 01/01/2025 12:55 PM EST Morning, Angenia M * Weight Change 24 hrs Answer Entry Date Author .2 01/01/2025 12:55 PM EST Morning, Angenia M * BSA (Calculated - sq m) Answer Entry Date Author 2.41 01/01/2025 12:55 PM EST Morning, Angenia M * BMI (Calculated) Answer Entry Date Author 37.11 01/01/2025 12:55 PM EST Morning, Angenia M * BP Location Answer Entry Date Author Right arm 01/01/2025 12:55 PM EST Morning, Angenia M * IBW/kg (Calculated) Male Answer Entry Date Author 73 01/01/2025 12:55 PM EST Morning, Angenia M * IBW/kg (Calculated) Female Answer Entry Date Author 68.5 01/01/2025 12:55 PM EST Morning, Angenia M * IBW/kg (Calculated) Answer Entry Date Author 73 01/01/2025 12:55 PM EST Morning, Angenia M * Restart Pain Assessment Timer Answer Entry Date Author Yes 01/01/2025 1:02 PM EST Morning, Angenia M * Weight in (lb) to have BMI = 25 Answer Entry Date Author 173.9 01/01/2025 12:55 PM EST Morning, Angenia M * BMI (Calculated) Answer Entry Date Author 37.2 01/01/2025 12:55 PM EST Morning, Angenia M * Percent Excess Weight Loss Answer Entry Date Author 0 01/01/2025 12:55 PM EST Morning, Angenia M * Weight Change Since Preop Answer Entry Date Author 117.3 01/01/2025 12:55 PM EST Morning, Angenia M * Initial Excess Weight Answer Entry Date Author -75.3 01/01/2025 12:55 PM EST Morning, Angenia M * IBW in kg (Bariatric) Answer Entry Date Author 75.3 01/01/2025 12:55 PM EST Morning, Angenia M * IBW in lb (Bariatric) Answer Entry Date Author 166 01/01/2025 12:55 PM EST Morning, Angenia M * Weight Change Since Last Visit Answer Entry Date Author 117.3 01/01/2025 12:55 PM EST Morning, Angenia M * Percent of IBW Answer Entry Date Author 155.78 01/01/2025 12:55 PM EST Morning, Angenia M * EBW (kg) Answer Entry Date Author 41.97 01/01/2025 12:55 PM EST Morning, Angenia M * EBW (lb) Answer Entry Date Author 92.6 01/01/2025 12:55 PM EST Morning, Angenia M * Difference in Weight Since Last Visit Answer Entry Date Author 0.2 01/01/2025 12:55 PM EST Morning, Angenia M * IBW/kg (Calculated) Answer Entry Date Author 73 01/01/2025 12:55 PM EST Morning, Angenia M * Adult Low Range Vt 6mL/kg Answer Entry Date Author 438 01/01/2025 12:55 PM EST Morning, Angenia M * Adult Moderate Range Vt 8mL/kg Answer Entry Date Author 584 01/01/2025 12:55 PM EST Morning, Angenia M * Adult High Range Vt 10mL/kg Answer Entry Date Author 730 01/01/2025 12:55 PM EST Morning, Susanne Madden * Pain Score Answer Entry Date Author 0 01/01/2025 1:02 PM EST Morning, Susanne Madden * BP Cuff Size Answer Entry Date Author Adult 01/01/2025 12:55 PM EST Morning, Susanne M * Patient Position Answer Entry Date Author Sitting 01/01/2025 12:55 PM EST Morning, Kaiserbalaji M * Pain Screening Answer Entry Date Author 0-10 01/01/2025 1:02 PM EST Morning, Susanne Madden documented in this encounter Miscellaneous Notes * Progress Notes - Lu Cameron, GLUING MACHINE OFFBEARER - 01/01/2025 1:20 PM EST Images from [...] care. Electronically signed by: Lu Cameron APRN [facility]. [address] [place] [address]. [address] PHONE [phone] FAX: [phone] documented in this encounter Plan of Treatment Upcoming Encounters Date Type Department Care Team (Late st Contact Info) Description 04/03/2025 1:00 PM EST Office Visit [facility] Endocrinology [address] [place] [address] Lu Cameron APRN [address] [facility] [address] [place] [address] Scheduled Orders Name Type Priority Associated [...] Associated Diagnoses Orde r Schedule Follow Up [facility] Outpatient Referral Routine Type 2 diabetes mellitus [...] documented as of this encounter Care Teams Railroad Brake Repairer Relationship Specialty Start Date End Date Kwesi Faye MD [address] [place] [address] PCP - General Family Medicine 05/01/23 documented as of this encounter
--- OUTSIDE RECORDS SUMMARY | 2025-01-01 14:45 | XMS_ITS | Encounter Summary ---
Author Organization Healthcare Address [address] [place] [address] Care Team Providers Care Area Director Of Home Health Sales Name Role Phone Kwesi Faye MD Primary Care Provider [phone] Encounter Details Date Type Department Care Team (Latest Contact Info) Description 01/01/2025 2:45 PM EST Immunization [facility] [address] [place] [address] Need for immunization against influenza (Primary Dx) Social History Tobacco Use Types Packs/Day Years [...] on file documented as of this encounter Plan of Treatment Upcoming Encounters Date Type Department Care Team (Late st Contact Info) Description 04/03/2025 1:00 PM EST Office Visit [facility] Endocrinology [address] [place] [address] Lu Cameron, HATTIE [address] [facility] [address] [place] [address] documented as of this encounter Visit Diagnoses Diagnosis Need for immunization against influenza- Primary Need for prophylactic vaccination and inoculation against influenza documented in this encounter Additional Health Concerns Assessment Noted Time A fall risk assessment has been complete d for the patient 01/31/2023 1:12 PM EST A Body Mass Index follow-up plan has been documented for the patient 01/01/2025 2:09 PM EST documented as of this encounter Care Teams Area Director Of Home Health Sales Relationship Specialty Start Date End Date Kwesi Faye MD [address] [place] [address] PCP - General Family Medicine 05/01/23 documented as of this encounter
[2025-02-15 18:25] VITALS: BP 191/105; PULSE 95; RESP 16; TEMP 36.8; O2SAT 100; BMI 36.6
--- NOTE | 2025-02-15 18:32 | HMH.EDGENADL ---
Discharge Plan Disposition Patient Disposition: Home, Self-Care Condition: Good Prescriptions Prescriptions: New ondansetron 4 mg tablet,disintegrating 4 mg PO Q6H PRN (Reason: nausea and vomiting) Qty: 16 0RF dicyclomine 10 mg capsule 10 mg PO QID PRN (Reason: abdominal pain) Qty: 14 0RF No Action insulin lispro [Humalog KwikPen Insulin] 100 unit/mL insulin pen 100 unit SQ DAILY insulin glargine [Lantus Solostar U-100 Insulin] 100 unit/mL (3 mL) insulin pen 100 unit SQ DAILY atorvastatin 20 mg tablet 20 mg PO DAILY metoclopramide HCl [Reglan] 10 mg tablet 10 mg PO QAC Rx Instructions: administer 30 minutes before meals mupirocin 2 % ointment 1 applic topical BID Qty: 30 1RF Rx Instructions: Apply to affected area up to twice daily buprenorphine-naloxone 1 EACH tablet, sublingual 1.5 tab sublingual DAILY dicyclomine 20 mg tablet 20 mg PO BID Qty: 14 0RF Referrals Follow up/Referrals: Betina Faye MD [Primary Care Provider, Medical] - See instructions Renato Ayala II, MD [Staff Physician, Gastroenterology] - See instructions Activity Restrictions/Add. Instructions Additional Instructions/Restrictions: I am prescribing Zofran to help with nausea and vomiting. I am also prescribing Bentyl to help with any abdominal spasms. I am referring you to our drip molder, Dr. Ayala, has a feel that you would benefit from close follow-up with a drip molder for your gastroparesis. Continue to drink plenty of fluids and stay hydrated. If you develop any new or worsening symptoms, such as uncontrolled nausea and vomiting, worsening abdominal pain, or if you become concerned for your health for any reason, return to the emergency department for evaluation. Clinical Impressions Clinical Impression: Nausea & vomiting, Abdominal pain, SIDNEY (acute kidney injury) Instructions Patient Instructions: DI for Acute Abdominal Pain Print Language Print Language: Telugu Discharge ED Provider: Jose M Billingsley Adult HPI <Jayden Padron ([facility]), EMAIL MARKETING MANAGER - Last Filed: 02/15/25 18:58> General Chief complaint: Abdominal Pain Stated complaint: gastroparesis,vomiting,low blood sugar Time Seen by Provider: 02/15/25 18:25 Mode of Arrival: Ambulatory Source of Information: Patient Description of Symptoms (Recalled from ER Triage Doc. by RN): Patient states that he has a history of gastroparesis and has been having abdominal pain and vomiting since 02/13/25 evening. History of Present Illness HPI narrative: 64-year-old male presents for abdominal pain, nausea and vomiting since [place] evening. Patient states history of gastroparesis and this feels like his normal episodes. Related Data Home Medications ?Medication ?Instructions ?Recorded ?Confirmed buprenorphine 8 mg-naloxone 2 mg 1.5 tab sublingual DAILY ADDICTION 09/06/19 08/19/24 sublingual tablet atorvastatin 20 mg tablet 20 mg PO DAILY 06/15/22 08/19/24 insulin glargine 100 unit/mL (3 100 unit SQ DAILY 06/15/22 08/19/24 mL) subcutaneous pen (Lantus Solostar U-100 Insulin) insulin lispro 100 unit/mL 100 unit SQ DAILY 06/15/22 08/19/24 subcutaneous pen (Humalog KwikPen (U-100) Insulin) metoclopramide HCl 10 mg tablet 10 mg PO QAC 10/05/22 08/19/24 (Reglan) Previous Rx's ?Medication ?Instructions ?Recorded mupirocin 2 % topical ointment 1 applic topical BID cellulitis 10/05/22 #30 grams dicyclomine 20 mg tablet 20 mg PO BID #14 tabs 10/07/23 dicyclomine 10 mg capsule 10 mg PO QID PRN abdominal pain 02/15/25 #14 caps ondansetron 4 mg disintegrating 4 mg PO Q6H PRN nausea and 02/15/25 tablet vomiting #16 tabs Allergies Allergy/AdvReac Type Severity Reaction Status Date / Time sulfamethoxazole (From Allergy Mild Unknown Verified 08/19/24 11:33 BACTRIM) allergy reaction trimethoprim (From BACTRIM) Allergy Mild Unknown Verified 08/19/24 11:33 allergy reaction PFSH <Jayden Padron ([facility]), EMAIL MARKETING MANAGER - Last Filed: 02/15/25 18:58> [facility] Disclaimer: The information contained in this section may have been updated after the patient was seen, as this information can be updated by other users. Medical History Hyperlipidemia Diabetes GERD (gastroesophageal reflux disease) Surgical History History of ankle surgery History of back surgery History of cholecystectomy Family History Other No significant family history Social History Smoking Status: Never smoker alcohol intake: current alcohol intake frequency: holidays/special occasions only substance use type: opiates current occupational status: disabled Travel in the last 8 weeks?: Inside the [place] household members: spouse and children housing: house current occupational exposures/hazards: No Have you lived/traveled outside US in past 30 days?: No Contact w/someone who lives/traveled outside US past 30 days?: No Exposure to someone with infectious disease in past 14 days?: No Do you have a fever (greater than 100.4 F or 38 C)?: No Have you tested positive for COVID-19?: No Exposed to someone with COVID-19 in past 14 days?: No Do you have a sore throat?: No Do you have a cough?: No Do you have any weakness?: No Do you have any diarrhea?: No Are you experiencing any unusual bleeding?: No Do you have any muscle aches/pain?: No Do you have any abdominal pain?: No Are you experiencing loss of taste or smell?: No Other Medical History Have you received the Flu Vaccine for this season: No Have you received the Pneumonia Vaccine: No <[facility] EMAIL MARKETING MANAGER - Last Filed: 02/15/25 18:58> ROS Obtained: Yes Systems reviewed as appropriate & no additional complaints except as documented Gastrointestinal Gastrointestingal: Reports system reviewed and no additional complaints, except as documented, as per HPI, abdominal pain, nausea and vomiting Physical Exam <[facility] EMAIL MARKETING MANAGER - Last Filed: 02/15/25 18:58> General General appearance: alert and in no apparent distress Eye Eye exam: Present normal appearance and PERRL ENT ENT exam: Present normal exam Respiratory Respiratory exam: Present normal lung sounds bilaterally Cardiovascular Cardiovascular exam: Present regular rate and normal rhythm Abdominal Exam Abdominal exam: Present soft, tenderness and normal bowel sounds Neurological Exam Neurological exam: Present alert and oriented X3 Skin Skin exam: Present warm and intact Medical Decision Making <Jayden Padron ([facility]), EMAIL MARKETING MANAGER - Last Filed: 02/15/25 18:58> Medical Records Medical records reviewed: Yes I reviewed the patient's medical records. Screening: Per USPSTF and CDC recommendations, given the prevalence of disease in our region, it is our hospital?s policy to screen for HIV and viral Hepatitis for all patients aged 18 and over and those with ongoing risk factors. Juan Inquiry Pt receiving controlled substance: No Vital Signs: 02/15/25 18:25 02/15/25 23:36 Temperature 98.3 F 97.8 F Temperature Source Oral Oral Pulse Rate 89 Pulse Rate [Right Brachial] 95 H Respiratory Rate 16 16 Blood Pressure 128/80 Blood Pressure [Right Arm] 191/105 H Blood Pressure Mean [Right Arm] 133 Blood Pressure Source Automatic Cuff Blood Pressure Source [Right Arm] Automatic Cuff Blood Pressure Position Sitting Blood Pressure Position [Right Arm] Sitting 02 Sat by Pulse Oximetry 100 Oxygen Delivery Method Room Air Room Air Lab Data Lab Results 02/15/25 18:35: WBC 7.1, RBC 4.69, Hgb 13.4 L, Hct 40.2 L, MCV 85.7, MCH 28.6, MCHC 33.3, RDW 11.9, Plt Count 328, MPV 11.4 H, Neut % (Auto) 68.2, Lymph % (Auto) 18.2, Titus % (Auto) 12.3 H, Eos % (Auto) 0.0 L, Baso % (Auto) 1.0, Neut # (Auto) 4.8, Lymph # (Auto) 1.3, Titus # (Auto) 0.9, Eos # (Auto) 0.0, Baso # (Auto) 0.1, Sodium 136, Potassium 3.6, Chloride 98, Carbon Dioxide 24, Anion Gap 17.6 H, BUN 31 H, Creatinine 1.60 H, Estimated Creat Clear 77, Estimated GFR 44 L, Est GFR ( Amer) 53 L, Glucose 354 H, Calcium 10.0, Total Bilirubin 0.8, AST 34, ALT 27, Alkaline Phosphatase 133 H, Total Protein 8.2 D, Albumin 4.8, Globulin 3.4 H, Albumin/Globulin Ratio 1.4, Lipase 48 02/15/25 18:55: Acetone Level None detected 02/15/25 18:35 02/15/25 18:35 Orders (Tests/Meds): ED MEDICATIONS Discontinued Medications Generic Name Dose Route Start Last Admin Trade Name Freq PRN Reason Stop Dose Admin Diphenhydramine HCl 25 mg 02/15/25 21:14 02/15/25 21:33 Diphenhydramine 50mg/Ml Vial IV 02/15/25 21:15 25 mg ONCE ONE Administration Droperidol 2.5 mg 02/15/25 21:14 02/15/25 21:33 Droperidol 5mg/2ml Vial IV 02/15/25 21:15 2.5 mg ONCE ONE Administration Sodium Chloride 1,000 mls @ 999 mls/hr 02/15/25 18:31 02/15/25 20:11 Sod Chlor 0.9% 1000ml Bag IV 02/15/25 19:31 Infused .Q1H1M ONE Infusion Sodium Chloride 1,000 mls @ 999 mls/hr 02/15/25 21:16 02/15/25 21:33 Sod Chlor 0.9% 1000ml Bag IV 02/15/25 22:16 999 mls/hr .Q1H1M ONE Administration Iopamidol 75 ml 02/15/25 22:30 02/15/25 22:30 Iopamidol-370 (76%);100ml Bottle IV 02/15/25 22:31 75 ml ONCE ONE Administration Ondansetron HCl 4 mg 02/15/25 18:27 02/15/25 18:38 Ondansetron 4mg/2ml Vial IV 02/15/25 18:28 4 mg ONCE ONE Administration Promethazine HCl 12.5 mg 02/15/25 18:55 02/15/25 19:23 Promethazine Hcl 25mg/Ml 1ml Vial IV 02/15/25 18:56 12.5 mg ONCE ONE Administration Sodium Chloride 25 ml 02/15/25 18:55 02/15/25 19:23 Sodium Chloride 0.9% 25ml Bag IV 02/15/25 18:56 25 ml ONCE ONE Administration Sodium Chloride 10 ml 02/15/25 22:30 02/15/25 22:30 Sodium Chloride 0.9% 10ml Syr (Rad Only) IV 03/17/25 22:29 10 ml NEEDED PRN Administration Maintain IV Site ORDERS Category Date Time Status CT abdomen pelvis w con Stat Cat Scan 02/15/25 21:13 Completed Acetone, Serum (Rapid) Stat Lab 02/15/25 18:55 Completed CBC w/Auto Diff [Complete Blood Count Auto Diff] Stat Lab 02/15/25 18:35 Completed CMP [Comprehensive Metabolic Panel] Stat Lab 02/15/25 18:35 Completed Lipase Stat Lab 02/15/25 18:35 Completed Medical Decision Narrative: In summary patient is a 64-year-old male who presents to the emergency department for evaluation of abdominal pain, nausea and vomiting since [place] evening. Patient is hemodynamically stable upon arrival, afebrile. Unremarkable physical exam other than tenderness to abdomen. Differential diagnosis includes gastroparesis, viral illness. Initial workup will be conducted with [hematologic labs, imaging, respiratory swab, described workup]. Initial inventions include [crystalloid bolus, medications, p.o. challenge, etc.]. Initial workup reviewed by me [hematologic labs remarkable for? Imaging remarkable for? Urinalysis remarkable for?]. Upon repeat evaluation [patient had except for resolution of symptoms, had persistent pain for which additional interventions were conducted (describe interventions), tolerated p.o., was ambulatory, etc.]. Given this [patient was appropriate for discharge at this time and will be discharged with a prescription for? This case was discussed with hospital medicine regarding management? They will meet the patient to their service for continued evaluation at this time? Etc.] <Jose M Billingsley MD - Last Filed: 02/16/25 11:16> Vital Signs: 02/15/25 18:25 02/15/25 23:36 Temperature 98.3 F 97.8 F Temperature Source Oral Oral Pulse Rate 89 Pulse Rate [Right Brachial] 95 H Respiratory Rate 16 16 Blood Pressure 128/80 Blood Pressure [Right Arm] 191/105 H Blood Pressure Mean [Right Arm] 133 Blood Pressure Source Automatic Cuff Blood Pressure Source [Right Arm] Automatic Cuff Blood Pressure Position Sitting Blood Pressure Position [Right Arm] Sitting 02 Sat by Pulse Oximetry 100 Oxygen Delivery Method Room Air Room Air Lab Data Lab Results 02/15/25 18:35: WBC 7.1, RBC 4.69, Hgb 13.4 L, Hct 40.2 L, MCV 85.7, MCH 28.6, MCHC 33.3, RDW 11.9, Plt Count 328, MPV 11.4 H, Neut % (Auto) 68.2, Lymph % (Auto) 18.2, Titus % (Auto) 12.3 H, Eos % (Auto) 0.0 L, Baso % (Auto) 1.0, Neut # (Auto) 4.8, Lymph # (Auto) 1.3, Titus # (Auto) 0.9, Eos # (Auto) 0.0, Baso # (Auto) 0.1, Sodium 136, Potassium 3.6, Chloride 98, Carbon Dioxide 24, Anion Gap 17.6 H, BUN 31 H, Creatinine 1.60 H, Estimated Creat Clear 77, Estimated GFR 44 L, Est GFR ( Amer) 53 L, Glucose 354 H, Calcium 10.0, Total Bilirubin 0.8, AST 34, ALT 27, Alkaline Phosphatase 133 H, Total Protein 8.2 D, Albumin 4.8, Globulin 3.4 H, Albumin/Globulin Ratio 1.4, Lipase 48 02/15/25 18:55: Acetone Level None detected Orders (Tests/Meds): ED MEDICATIONS Discontinued Medications Generic Name Dose Route Start Last Admin Trade Name Freq PRN Reason Stop Dose Admin Diphenhydramine HCl 25 mg 02/15/25 21:14 02/15/25 21:33 Diphenhydramine 50mg/Ml Vial IV 02/15/25 21:15 25 mg ONCE ONE Administration Droperidol 2.5 mg 02/15/25 21:14 02/15/25 21:33 Droperidol 5mg/2ml Vial IV 02/15/25 21:15 2.5 mg ONCE ONE Administration Sodium Chloride 1,000 mls @ 999 mls/hr 02/15/25 18:31 02/15/25 20:11 Sod Chlor 0.9% 1000ml Bag IV 02/15/25 19:31 Infused .Q1H1M ONE Infusion Sodium Chloride 1,000 mls @ 999 mls/hr 02/15/25 21:16 02/15/25 21:33 Sod Chlor 0.9% 1000ml Bag IV 02/15/25 22:16 999 mls/hr .Q1H1M ONE Administration Iopamidol 75 ml 02/15/25 22:30 02/15/25 22:30 Iopamidol-370 (76%);100ml Bottle IV 02/15/25 22:31 75 ml ONCE ONE Administration Ondansetron HCl 4 mg 02/15/25 18:27 02/15/25 18:38 Ondansetron 4mg/2ml Vial IV 02/15/25 18:28 4 mg ONCE ONE Administration Promethazine HCl 12.5 mg 02/15/25 18:55 02/15/25 19:23 Promethazine Hcl 25mg/Ml 1ml Vial IV 02/15/25 18:56 12.5 mg ONCE ONE Administration Sodium Chloride 25 ml 02/15/25 18:55 02/15/25 19:23 Sodium Chloride 0.9% 25ml Bag IV 02/15/25 18:56 25 ml ONCE ONE Administration Sodium Chloride 10 ml 02/15/25 22:30 02/15/25 22:30 Sodium Chloride 0.9% 10ml Syr (Rad Only) IV 03/17/25 22:29 10 ml NEEDED PRN Administration Maintain IV Site ORDERS Category Date Time Status CT abdomen pelvis w con Stat Cat Scan 02/15/25 21:13 Completed Acetone, Serum (Rapid) Stat Lab 02/15/25 18:55 Completed CBC w/Auto Diff [Complete Blood Count Auto Diff] Stat Lab 02/15/25 18:35 Completed CMP [Comprehensive Metabolic Panel] Stat Lab 02/15/25 18:35 Completed Lipase Stat Lab 02/15/25 18:35 Completed Medical Decision Narrative: In summary patient is a 64-year-old male who presents to the emergency department for evaluation of abdominal pain, nausea and vomiting since [place] evening. Patient is hemodynamically stable upon arrival, afebrile. Unremarkable physical exam other than tenderness to abdomen. Differential diagnosis includes gastroparesis, viral illness. Initial workup will be conducted with [hematologic labs, imaging, respiratory swab, described workup]. Initial inventions include [crystalloid bolus, medications, p.o. challenge, etc.]. Initial workup reviewed by me [hematologic labs remarkable for? Imaging remarkable for? Urinalysis remarkable for?]. Upon repeat evaluation [patient had except for resolution of symptoms, had persistent pain for which additional interventions were conducted (describe interventions), tolerated p.o., was ambulatory, etc.]. Given this [patient was appropriate for discharge at this time and will be discharged with a prescription for? This case was discussed with hospital medicine regarding management? They will meet the patient to their service for continued evaluation at this time? Etc.] Jose M Billingsley MD: I was consulted by the LUZMARIA, and we discussed the complexity of the problems being addressed. I approve the treatment and management plan for this patient's care in the emergency department, thus performing a substantive portion of the medical decision making. At the time I assumed care, patient's laboratory studies show SIDNEY With creatinine 1.6, BUN of 31, gap mildly elevated 17.6. Glucose is elevated at 354. Liver enzymes bili are within normal limits. Lipase normal at 48. Patient had received 4 mg of IV Zofran and 12.5 mg of IV Phenergan. He is feels like the Phenergan had helped some, however at the time my evaluation at approximately 2100, patient vomited again. He reports upper abdominal pain. He states that this is similar to when he had gastroparesis a few years ago. Will obtain CT abdomen pelvis at this time as well as acetone level to rule out DKA given his hyperglycemia. Will also administer additional 1 L normal saline Patient's acetone level is negative. On reassessment, patient is resting comfortably and reports improvement of his symptoms. CT abdomen pelvis was interpreted by me personally. No acute findings in the abdomen or pelvis. He does have some thickening of the distal esophagus and has been seen on previous workups. Per radiology, this could be from esophagitis or neoplasm. Patient is resting comfortably at this time and feels that he can try to manage his symptoms at home. Will prescribe him Zofran to go home and give him referral to Dr. Ayaal with gastroenterology as he does not currently have a drip molder for his gastroparesis and findings on CT scan. Return precautions were given. All questions were answered. He demonstrated understanding and was in agreement this plan. He was then discharged from the emergency department in stable condition Critical Care <Jayden Pardon ([facility]), EMAIL MARKETING MANAGER - Last Filed: 02/15/25 18:58> Critical Care Time Critical Care Time: No
[2025-02-15] MEDS: ONDANSETRON 4MG/2ML VIAL 4 MG IV (18:38)
[2025-02-15] MEDS: 0.9 % SODIUM CHLORIDE 1000ML 1,000 ML 999 ML IV ×2 (18:38→21:33)
[2025-02-15 18:44] LABS: Hematocrit 40.2 % (42.0-52.0); Hemoglobin 13.4 g/dL (14.1-18.0); Immature Granulocytes % 0.3 %; Mean Corpuscular HGB Conc 33.3 g/dL (31.8-35.4); Mean Corpuscular Hemoglobin 28.6 pg (27.0-31.2); Mean Corpuscular Volume 85.7 fl (80-94); Nucleated Red Blood Cells % 0 %; Platelet Count 328 K/mm3 (142-424); Red Blood Count 4.69 M/mm3 (4.60-6.20); Red Cell Distribution Width-SD 37.1 fL; White Blood Count 7.1 K/mm3 (4.8-10.8)
--- OUTSIDE RECORDS SUMMARY | 2025-02-15 18:52 | XMS_ITS | Encounter Summary ---
Author Organization [facility] Address [address] [place] [address] Care Team Providers Care Mechanical Cad Drafter Name Role Phone Kwesi Faye MD Primary Care Provider [phone] Encounter Details Date Type Department Care Team (Late st Contact Info) Description 01/14/2025 [facility] [address] [place] [address] Lu Cameron APRN [address] [address] Social History Tobacco Use Types [...] Description 04/03/2025 1:00 PM EST Office Visit [facility] Endocrinology [address] [place] [address] Lu Cameron DATABASE ADMINISTRATION PROJECT MANAGER [address] [address] documented as of this encounter Visit Diagnoses Not on filedocumented in this encounter Additional Health Concerns Assessment Noted Time A fall risk assessment has been complete d for the patient 01/31/2023 1:12 PM EST A Body Mass Index follow-up plan has been documented for the patient 01/01/2025 2:09 PM EST documented as of this encounter Care Teams Mechanical Cad Drafter Relationship Specialty Start Date End Date Kwesi Faye MD [address] [place] [address] PCP - General Family Medicine 05/01/23 documented as of this encounter
--- OUTSIDE RECORDS SUMMARY | 2025-02-15 18:52 | XMS_ITS | Encounter Summary ---
Author Organization [facility] Address [address] [place] [address] Care Team Providers Care Accounting Administrator Name Role Phone Kwesi Faye MD Primary Care Provider [phone] Encounter Details Date Type Department Care Team (Late st Contact Info) Description 01/15/2025 Orders Only [facility] [address] [place] [address] Lu Cameron, CUSHION MAKER [address] [address] Social History Tobacco Use Types [...] Description 04/03/2025 1:00 PM EST Office Visit [facility] [address] [place] [address] Lu Cameron, CUSHION MAKER 5 [facility] [address] [place] [address] documented as of this encounter Procedures Procedure Name Priority Date/Time Associated Diagnosis Comments ALBUMIN, URINE, RANDOM Routine 01/14/2025 9:20 AM EST documented in this encounter Results * Albumin-creatinine ratio, urine, random (01/14/2025 9:20 AM EST) Urine Urine specimen obtained by clean catch procedure / Unknown Lu Cameron APRN LAB URINE ORDERABLES Final Result documented in this encounter Visit Diagnoses Not on filedocumented in this encounter Additional Health Concerns Assessment Noted Time A fall risk assessment has been complete d for the patient 01/31/2023 1:12 PM EST A Body Mass Index follow-up plan has been documented for the patient 01/01/2025 2:09 PM EST documented as of this encounter Care Teams Accounting Administrator Relationship Specialty Start Date End Date Kwesi Faye MD [address] [place] [address] PCP - General Family Medicine 05/01/23 documented as of this encounter
--- OUTSIDE RECORDS SUMMARY | 2025-02-15 18:52 | XMS_ITS | Encounter Summary ---
Author Organization [facility] Address [address] [place] [address] Care Team Providers Care Funeral Home Assistant Name Role Phone Kwesi Faye MD Primary Care Provider Encounter Details Date Type Department Care Team [...] on file documented as of this encounter Functional Status * Communicable Disease Screening Question Answer Date of Assessment Author Have you been in contact wit h someone who was sick? No / Unsure 01/01/2025 12:52 PM Donal Gonzales Do you have any of the following new or worsening symptoms? None of these 01/01/2025 12:52 PM Jhonatan Gonzales * Travel Screening Question Answer Date of Assessment Author Have you traveled intern[place] or domestically in the last month? No 01/01/2025 12:52 PM Jhonatan Weinstein documented as of this encounter Mental Status * Communicable Disease Screening Question Answer Entry Date Author Have you been in contact wit h someone who was sick? No / Unsure 01/01/2025 12:52 PM Donal Gonzales Do you have any of the following new or worsening symptoms? None of these 01/01/2025 12:52 PM EST Jhonatan Adhikari * Travel Screening Question Answer Entry Date Author Have you traveled intern[place] or domestically in the last month? No 01/01/2025 12:52 PM EST Jhonatan Mcneill documented in this encounter Plan of Treatment Upcoming Encounters Date Type Department Care Team (Late st Contact Info) Description 04/03/2025 1:00 PM EST Office Visit [facility] Endocrinology [address] [place] [address] Lu Cameron, PROCESS PROJECT ENGINEER [address] [place] [address] documented as of this encounter Visit Diagnoses Not on filedocumented in this encounter Additional Health Concerns Assessment Noted Time A fall risk assessment has been complete d for the patient 01/31/2023 1:12 PM EST A Body Mass Index follow-up plan has been documented for the patient 01/01/2025 2:09 PM EST documented as of this encounter Care Teams Funeral Home Assistant Relationship Specialty Start Date End Date Kwesi Faye MD [address] [place] [id number] PCP - General Family Medicine 05/01/23 documented as of this encounter
--- OUTSIDE RECORDS SUMMARY | 2025-02-15 18:52 | XMS_ITS | Clinical Summary ---
[facility] Address [address] [place] [id number] Care Team Providers Care Glass Installer Name Role Phone Jhonatan Faye MD Primary Care Provider [phone] Social History Tobacco Use Types Packs/Day Years [...] 10/2024, 02/27/2024, Additional history exists Care Teams Glass Installer Relationship Specialty [place] [address] [place] [address] PCP - General 10/16/14
--- OUTSIDE RECORDS SUMMARY | 2025-02-15 18:52 | XMS_ITS | Encounter Summary ---
Author Organization [facility] Address [address] [place] [address] Care Team Providers Care Hair Specialist Name Role Phone Mal Song MD Primary Care Provider [phone] Kwesi Faye MD Primary Care Provider [phone] Reason for Visit * Reason Comments Med Refill Encounter Details Date Type Department Care Team (Late st Contact Info) Description 06/29/2022 Refill [facility] Endocrinology [address] [place] [address] Lu Cameron, CALL CENTER TEAM LEADER [address] [address] Social History Tobacco Use Types [...] 60 day supply with 0 refill(s) to [facility]. Electronically signed by Modesta Mccartney 06/29/2022 12:47 PM EDT documented in this encounter Plan of Treatment Upcoming Encounters Date Type Department Care Team (Late st Contact Info) Description 04/03/2025 1:00 PM EST Office Visit [facility] Endocrinology [address] [place] [address] Lu Cameron, CALL CENTER TEAM LEADER [address] [place] [address] documented as of this encounter Visit Diagnoses Not on filedocumented in this encounter Additional Health Concerns Assessment Noted Time A fall risk assessment has been complete d for the patient 11/11/2021 8:36 AM EDT documented as of this encounter Care Teams Hair Specialist Relationship Specialty Start Date End Date Mal Song MD [address] [place] [address] PCP - General 07/03/20 04/30/23 Kwesi Faye MD [address] [place] [address] PCP - General Family Medicine 05/01/23 documented as of this encounter
--- OUTSIDE RECORDS SUMMARY | 2025-02-15 18:52 | XMS_ITS | Clinical Summary ---
Author Organization [facility] Address [address] [place] [address] Care Team Providers Care Beveller Operator Name Role Phone Kwesi Faye MD Primary Care Provider [phone] Allergies Active Allergy Reactions Criticality Noted Date [...] every 15 days. 6 each 3 5 09/06/19 26 Active sildenafil (Revatio) 20 MG tablet take 3 tablets by mouth once a day 5 Active insulin glargine (Lantus SoloStar) 100 UNIT/ML injection pen Inject 18 Units under the skin every morning. 30 mL 2 5 01/02/20 Active insulin lispro (HumaLOG KWIKPEN) 100 UNIT/ML injection pen Inject subcutaneous 10 units before first meal and 5 units before second meal, correction 1:40>150 to MDD of 50 units 45 mL 3 Active pen needle, diabetic (B-D UF III MINI PEN NEEDLES) 31G X 5 MM misc Use 4x/day 360 each 3 Active Dasiglucagon HCl (Zegalogue) 0.6 MG/0.6ML solution auto-injector Use as directed in severe Hypoglycemia 0.6 mL 3 Active atorvastatin (Lipitor) 80 MG tablet Take 1 tablet by mouth daily. 90 tablet 3 5 01/15/20 Active Active Problems Problem Noted Date Diagnosed [...] Encounters Date Type Department Care Team Description 01/15/2025 Orders Only [facility] [address] [place] [address] Lu Cameron, HATTIE 01/14/2025 Results Follow-Up [facility] [address] [place] [address] Lu Cameron, ENVIRONMENTAL HEALTH OFFICER 01/14/2025 Orders Only [facility] [address] [place] [address] Lu Cameron APRN 01/02/2025 Orders Only [facility] Endocrinology [address] [place] [address] Lu Cameron APRN 01/01/2025 2:45 PM EST Immunization [facility] [address] [place] [address] Need for immunization against influenza (Primary Dx) 01/01/2025 1:20 PM EST Office Visit [facility] Endocrinology [address] [place] [address] Lu Cameron, HATTIE Type 2 diabetes mellitus with hyperglycemia, with long-term current use of insulin (Primary Dx); Hyperlipidemia, unspecified hyperlipidemia type; Neuropathy; Class 2 severe obesity with serious comorbidity and body mass index (BMI) of 37.0 to 37.9 in adult, unspecified obesity type; Hypertension, unspecified type; Hypoglycemia 01/01/2025 Travel 11/26/2024 Refill [facility] Endocrinology [address] [place] [address] Lu Cameron, ENVIRONMENTAL HEALTH OFFICER from Last 3 Months Immunizations Immunization Administration [...] Description 04/03/2025 1:00 PM EST Office Visit [facility] Endocrinology [address] [place] [address] Lu Cameron, ENVIRONMENTAL HEALTH OFFICER [address] [place] [address] Health Maintenance Due Date Last [...] 2006 Sigmoidoscopy 2006 [facility]-Colorectal Cancer Screening 2006 [facility]-RSV Vaccine: 60+ Years or (1 - Risk 50-74 years 1-dose series) 12/11/2011 [facility]-Zoster Vaccines (1 of 2) 12/11/2011 [facility]-Depression Screening 02/01/2024 01/31/2023 [id number] Vaccine (1 - season) 2024 [facility]-Diabetes: Hemoglobin A1C 12/05/2024, 05/29/2024, 02/27/2024, Additional history exists [facility]-Influenza Vaccine Completed 01/01/2025, 022 [facility]-Obesity Intervention Completed 025, 09/05/2024, 05/29/2024, Additional history exists HPV Vaccines (No Doses Required) Completed [facility]-HIB Vaccines Aged Out No longer e [...] Procedure Name Priority Date/Time Associated Diagnosis Comments COMPREHENSIVE METABOLIC PANEL, PLASMA Routine 01/14/2025 1:50 PM EST ALBUMIN, URINE, RANDOM Routine 9:20 AM EST POCT GLYCOSYLATED HEMOGLOBIN (HGB A1C) Routine 09/05/2024 1:51 PM EDT Type 2 diabetes mellitus with hyperglycemia, with long-term current use of insulin ([facility]) from Last 3 Months or Most Recently Relevant to Health Maintenance Results * Comprehensive Metabolic Panel, Plasma (01/14/2025 1:50 PM EST) Blood Venous blood specimen / Unknown [facility] LAB BLOOD ORDERABLES Final Result * Albumin-creatinine ratio, urine, random (01/14/2025 9:20 AM EST) Urine Urine specimen obtained by clean catch procedure / Unknown [facility] Cameron ENVIRONMENTAL HEALTH OFFICER LAB URINE ORDERABLES Final Result * POCT glycosylated hemoglobin (Hb A1C) (09/05/2024 1:51 PM EDT) POCT Hemoglobin A1C 9.2 <5.7% Non-Diabe tic % [facility] Kit Lot Number [id number] [facility] Kit Expiration Date 06/19/2026 [facility] Blood Venous blood specimen / Unknown 09/05/2024 1:51 PM EDT us Lu Cameron ENVIRONMENTAL HEALTH OFFICER POINT OF CARE TEST ENTER/ED IT ORDERABLES Final Result [facility] [address] [place] [address] from Last 3 Months or Most Recently Relevant to Health Maintenance Insurance [employer] MEDICARE Care Teams Beveller Operator Relationship Specialty Start Date End Date Kwesi Faye MD [address] [place] [address] [address] [place] [address] PCP - General Family Medicine 05/01/23
--- OUTSIDE RECORDS SUMMARY | 2025-02-15 18:52 | XMS_ITS | Referral Summary ---
Author Organization [employer] ([place], [place], [place], [place], [place]) Address [address] [place] [address] Care Team Providers Care Athletic Turf Worker Name Role Phone Unavailable Primary Care [...]
--- OUTSIDE RECORDS SUMMARY | 2025-02-15 18:52 | XMS_ITS | Clinical Summary ---
Author Organization [employer] ([place], [place], [place], [place], [place]) Address [address] [place] [address] Care Team Providers Care Reception Centre Manager Name Role Phone Unavailable Primary Care [...]
--- OUTSIDE RECORDS SUMMARY | 2025-02-15 18:52 | XMS_ITS | Encounter Summary ---
Author Organization [facility] Address [address] [place] [address] Care Team Providers Care Cement Mixer Driver Name Role Phone Kwesi Faye MD Primary Care Provider [phone] Encounter Details Date Type Department Care Team (Late st Contact Info) Description 01/14/2025 Orders Only [facility] [address] [place] [address] Lu Cameron, ELECTRICAL TECH/PROJECT MANAGER [address] [address] Social History Tobacco Use Types [...] EST Office Visit [facility] [address] [place] [address] Lu Cameron, ELECTRICAL TECH/PROJECT MANAGER 5 [facility] [address] [place] [address] documented as of this encounter Procedures Procedure Name Priority Date/Time Associated Diagnosis Comments COMPREHENSIVE METABOLIC PANEL, PLASMA Routine 01/14/2025 1:50 PM EST documented in this encounter Results * Comprehensive Metabolic Panel, Plasma (01/14/2025 1:50 PM EST) Blood Venous blood specimen / Unknown Lu Cameron APRN LAB BLOOD ORDERABLES Final Result documented in this encounter Visit Diagnoses Not on filedocumented in this encounter Additional Health Concerns Assessment Noted Time A fall risk assessment has been complete d for the patient 01/31/2023 1:12 PM EST A Body Mass Index follow-up plan has been documented for the patient 01/01/2025 2:09 PM EST documented as of this encounter Care Teams Cement Mixer Driver Relationship Specialty Start Date End Date Kwesi Faye MD [address] [place] [address] PCP - General Family Medicine 05/01/23 documented as of this encounter
--- OUTSIDE RECORDS SUMMARY | 2025-02-15 18:52 | XMS_ITS ---
Laboratory report Created on: January 21, 2025 ELISA MCCAULEY : 1960 Sex: Male Author Organization Unknown PROBLEMS Problems List Code Description RESULTS Laboratory Orders Date Order Code Test 2023-10-07 [id number] [facility] Laboratory Results Date LOINC Test Value Unit Reference Range Interpre tation 2023-10-07 2692-2 [facility] 312 MOSMOL/KG 280-301 H
--- OUTSIDE RECORDS SUMMARY | 2025-02-15 18:52 | XMS_ITS | Encounter Summary ---
Author Organization [facility] Address [address] [place] [address] Care Team Providers Care Tester Printed Circuit Boards Name Role Phone Kwesi Faye MD Primary Care Provider [phone] Encounter Details Date Type Department Care Team (Late st Contact Info) Description 01/02/2025 Orders Only [facility] [address] [place] [address] Lu Cameron, INCLUSION TEACHER [address] [address] Social History Tobacco Use Types [...] Description 04/03/2025 1:00 PM EST Office Visit [facility] [address] [place] [address] Lu Cameron, INCLUSION TEACHER 5 [facility] [address] [place] [address] documented as of this encounter Visit Diagnoses Not on filedocumented in this encounter Additional Health Concerns Assessment Noted Time A fall risk assessment has been complete d for the patient 01/31/2023 1:12 PM EST A Body Mass Index follow-up plan has been documented for the patient 01/01/2025 2:09 PM EST documented as of this encounter Care Teams Tester Printed Circuit Boards Relationship Specialty Start Date End Date Kwesi Faye MD [address] [place] [address] PCP - General Family Medicine 05/01/23 documented as of this encounter
[2025-02-15 18:57] LABS: Albumin Level 4.8 g/dl (3.5-5.0); Chloride 98 mmol/L (98-107); Potassium 3.6 mmoL/L (3.5-5.1); Sodium 136 mmol/L (136-145)
[2025-02-15 18:59] LABS: Blood Urea Nitrogen 31 mg/dl (9-20); Creatinine Clearance Estimated 77 mL/min (50-200); Creatinine,Serum 1.60 mg/dl (0.66-1.25); Estimated Glomerular Filt Rate 44 ml/min (>60); GFR (African American) 53 ML/MIN (>60)
[2025-02-15 19:00] LABS: Alanine Aminotransferase 27 U/L (12-78); Albumin/Globulin Ratio 1.4 (1.1-1.8); Alkaline Phosphatase 133 U/L (38-126); Anion Gap 17.6 mEq/L (5-15); Aspartate Amino Transferase 34 U/L (17-59); Bilirubin,Total 0.8 mg/dl (0.2-1.3); Carbon Dioxide 24 mmol/L (22.0-30.0); Globulin 3.4 g/dL (1.3-3.2); Lipase 48 U/L (23-300); Total Protein,Serum 8.2 g/dl (6.3-8.2)
[2025-02-15 19:01] LABS: Calcium 10.0 mg/dl (8.4-10.2); Glucose 354 mg/dl (74-100)
[2025-02-15] MEDS: PROMETHAZINE HCL 25MG/ML 1ML VIAL 12.5 MG IV (19:23)
[2025-02-15] MEDS: SODIUM CHLORIDE 0.9% 25ML BAG 25 ML IV (19:23)
--- NOTE | 2025-02-15 21:13 | CT_ITS ---
PROCEDURE INFORMATION: Exam: CT Abdomen And Pelvis With Contrast Exam date and time: 02/15/2025 10:28 PM Age: 64 years old Clinical indication: Nausea and vomiting; Additional info: N/v, epigastric pain TECHNIQUE: Imaging protocol: Computed tomography of the abdomen and pelvis with contrast. Total images: 358 Radiation optimization: All CT scans at this facility use at least one of these dose optimization techniques: automated exposure control; mA and/or kV adjustment per patient size (includes targeted exams where dose is matched to clinical indication); or iterative reconstruction. Contrast material: ISOVUE; Contrast volume: 75 ml; Contrast route: IV; COMPARISON: CT ABDOMEN PELVIS WO CON 10/07/2023 10:54 AM FINDINGS: Lungs: Calcified right middle lobe granuloma. Heart: Normal heart size. Coronary arteries: Severe coronary artery calcifications. Esophagus: Distal esophageal wall thickening as shown previously. Liver: Normal. No mass. Gallbladder and biliary ducts: Status post cholecystectomy. No biliary ductal dilatation. Pancreas: Complete pancreatic atrophy with fatty replacement. Spleen: 2 cm indistinct splenic hypodensity, statistically a cyst or hemangioma. No splenomegaly. Adrenal glands: Normal. No mass. Kidneys and ureters: No hydronephrosis, nephrolithiasis, or renal mass. Mild bilateral perinephric fat stranding. No ureteral stones. Stomach and bowel: Unremarkable stomach and duodenum. No ileus or bowel obstruction. Unremarkable small bowel. Colonic interposition anterior to the liver. There are few colonic diverticulum. No acute diverticulitis. Unremarkable rectum. Appendix: No evidence of appendicitis. Intraperitoneal space: Unremarkable. No free air. No significant fluid collection. Vasculature: Mild atherosclerotic vascular disease. Nonaneurysmal abdominal aorta. Major abdominal vessels enhance appropriately. Lymph nodes: Calcified right hilar lymph nodes. Small benign-appearing bilateral inguinal lymph nodes. Urinary bladder: Unremarkable as visualized. Reproductive: Mild prostatomegaly. Bones/joints: Severe degenerative disc disease L4-L5 and L5-S1. Mild degenerative changes remainder of the thoracolumbar spine. No acute osseous abnormality. Mild degenerative changes bilateral hips and SI joints. Soft tissues: Very tiny fat containing umbilical hernia. Bilateral gynecomastia. IMPRESSION: 1. Distal esophageal wall thickening from esophagitis or neoplasm. 2. Otherwise, no acute intra-abdominal or pelvic process. 3. Additional chronic and incidental findings.
[2025-02-15 21:23] LABS: Acetone, Serum (Rapid) None Detected (None Detect)
[2025-02-15] MEDS: droPERidol 5MG/2ML VIAL 2.5 MG IV (21:33)
--- NOTE | 2025-02-15 21:34 | ECG_ITS ---
APPROVED REPORT Exam: Resting ECG HR:75 bpm ECG Measurements Heart Rate 75 AXES OK 142 P 60 QRSd 97 QRS -14 QT 421 T 58 QTc 450 Conclusion SINUS RHYTHM WITH OCCASIONAL SUPRAVENTRICULAR PREMATURE COMPLEXES No STEMI Electronically signed by : MILTON ALLEN, 02/16/2025 07:13:00
[2025-02-15] MEDS: IOPAMIDOL-370 (76%);100ML BOTTLE 75 ML IV (22:30)
[2025-02-15] MEDS: SODIUM CHLORIDE 0.9% 10ML SYR (RAD ONLY) 10 ML IV (22:30)
[2025-02-15 23:36] VITALS: BP 128/80; PULSE 89; RESP 16; TEMP 36.6; O2SAT 97
== END 2025-02-15 23:49 | disposition home or self-care (01) ==
PROVIDERS: Nurse Practitioner Family; Emergency Provider Student in an Organized Health Care Education/Training Program; PCP Family Medicine
DX: R10.9 Unspecified abdominal pain (principal); R11.2 Nausea with vomiting, unspecified; N17.9 Acute kidney failure, unspecified; K31.84 Gastroparesis; E11.65 Type 2 diabetes mellitus with hyperglycemia; Z79.4 Long term (current) use of insulin
CPT/HCPCS: 74177; 80053; 82009; 83690; 85025; 93005; 96361; 96374; 96375; 99285; J1200; J1790; J2405; J2550; J7030; Q9967